=== PATIENT | male | born 1975 | race African-American/Black ===

== ENCOUNTER 2016-11-30 12:11 | Inpatient (IN) | payer BC ==
[2016-11-30 13:48] VITALS: BMI 22.4
--- NOTE | 2016-11-30 15:56 | HP ---
CIWA Score - CIWA Score Nausea/Vomitin Muscle Tremors: 3 Anxiety: 3 Agitation: 2 Paroxysmal Sweats: 1-Minimal Palms Moist Orientation: 0-Oriented Tacttile Disturbances: 2-Mild Itch/Numbness/Burn Auditory Disturbances: 2-Mild Harshness/Frighten Visual Disturbances: 2-Mild Sensitivity Headache: 2-Mild CIWA-Ar Total Score: 20 Admission ROS BHS - HPI Chief Complaint: I NEED HELP TO STOP DRINKING ALCOHOL AND COCAINE Allergies/Adverse Reactions: Allergies Allergy/AdvReac Type Severity Reaction Status Date / Time No Known Allergies Allergy Verified 11/30/16 15:37 History of Present Illness: THIS 41 YEARS OLD MALE WITH ALCOHOL AND COCAINE DEPENDENCE,WITHDRAWAL SYMPTOM, LAST DETOX 09/07 Exam Limitations: No Limitations - Ebola screening Have you traveled outside of the country in the last 21 days: No Have you been sick,other than usual withdrawal symptoms: No - Review of Systems Constitutional: Loss of Appetite, Night Sweats, Changes in sleep, Weakness, Unintentional Wgt. Loss EENT: reports: Nose Congestion Respiratory: reports: No Symptoms reported Cardiac: reports: No Symptoms Reported GI: reports: Nausea, Vomiting, Abdominal cramping : reports: No Symptoms Reported Musculoskeletal: reports: Back Pain, Muscle Pain Integumentary: reports: Dryness Endocrine: reports: No Symptoms Reported Hematology: reports: No Symptoms Reported Psychiatric: reports: other (SCHIZOPHRENIA) Patient History - Patient Medical History Hx Anemia: No (SICKLE CELL TRAIT) Hx Asthma: No Hx Chronic Obstructive Pulmonary Disease (COPD): No Hx Cancer: No Hx Cardiac Disorders: No Hx Congestive Heart Failure: No Hx Hypertension: No Hx Hypercholesterolemia: No Hx Pacemaker: No HX Cerebrovascular Accident: No Hx Seizures: No Hx Dementia: No Hx Diabetes: No Hx Gastrointestinal Disorders: No Hx Liver Disease: No Hx Genitourinary Disorders: No Hx Sexually Transmitted Disorders: No Hx Renal Disease (ESRD): No Hx Thyroid Disease: No Hx Human Immunodeficiency Virus (HIV): No (LAST 08/02/16 TO 08/06/16) Hx Hepatitis C: No Hx Depression: Yes Hx Suicide Attempt: No Hx Bipolar Disorder: No Hx Schizophrenia: No Other Medical History: SCHIZOPHRENIA,NO SUICIDAL,NO HOMICIDAL - Patient Surgical History Past Surgical History: No Hx Neurologic Surgery: No Hx Cataract Extraction: No Hx Cardiac Surgery: No Hx Lung Surgery: No Hx Breast Surgery: No Hx Breast Biopsy: No Hx Abdominal Surgery: No Hx Appendectomy: No Hx Cholecystectomy: No Hx Genitourinary Surgery: No Hx Section: No Hx Orthopedic Surgery: No Anesthesia Reaction: No - PPD History Previous Implant?: Yes Documented Results: Negative w/proof Implanted On Prior [facility] Admission?: Yes Date: 03/24/16 Results: 0 MM PPD to be Administered?: No - Smoking Cessation Smoking history: Current every day smoker Have you smoked in the past 12 months: Yes Aproximately how many cigarettes per day: 40 Cigars Per Day: 0 Hx Chewing Tobacco Use: No Initiated information on smoking cessation: Yes 'Breaking Loose' booklet given: 11/30/16 - Substance & Tx. History Hx Alcohol Use: Yes Hx Substance Use: Yes Substance Use Type: Alcohol, Cocaine Hx Substance Use Treatment: Yes (LAST DETOX 08/02/16 TO 09/06/16 [facility]) - Substances Abused Alcohol Route: Oral Frequency: Daily Amount used: 2 PINTS RYAN Age of first use: 13 Date of Last Use: 11/29/16 Crack Route: Smoking Frequency: Daily Amount used: $80 Age of first use: 38 Date of Last Use: 11/29/16 Family Disease History - Family Disease History Family Disease History: Heart Disease: Father (HTN,ALCOHOL), Other: Father Admission Physical Exam S - Vital Signs Vital Signs: Vital Signs - 24 hr 11/30/16 13:47 Temperature 98.2 F Pulse Rate 76 Respiratory 18 Rate Blood Pressure 131/78 - Physical General Appearance: Yes: Moderate Distress, Tremorous, Irritable, Sweating, Anxious HEENTM: Yes: Nasal Congestion Respiratory: Yes: Lungs Clear Neck: Yes: Within Normal Limits Breast: Yes: Within Normal Limits Cardiology: Yes: Within Normal Limits, Regular Rhythm, Regular Rate, S1, S2 Abdominal: Yes: Within Normal Limits, Normal Bowel Sounds, Non Tender, Flat, Soft Genitourinary: Yes: Within Normal Limits Back: Yes: Muscle Spasm Musculoskeletal: Yes: Back pain, Muscle Pain Extremities: Yes: Tremors 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, Fully Oriented, Alert, Motor Strength 5/5 Integumentary: Yes: Dry Lymphatic: Yes: Within Normal Limits - Diagnostic (1) Alcohol dependence with uncomplicated withdrawal Current Visit: No Status: Chronic (2) Cocaine dependence Current Visit: No Status: Chronic Qualifiers: Substance use status: uncomplicated Qualified Code(s): F14.20 - Cocaine dependence, uncomplicated (3) Nicotine dependence Current Visit: No Status: Chronic Qualifiers: Nicotine product type: cigarettes Substance use status: uncomplicated Qualified Code(s): F17.210 - Nicotine dependence, cigarettes, uncomplicated (4) Paranoid schizophrenia Current Visit: No Status: Chronic (5) Weight loss Current Visit: No Status: Suspected Cleared for Admission S - Detox or Rehab [facility] Level of Care: Medically Managed Detox Regimen/Protocol: Librium S Breath Alcohol Content Breath Alcohol Content: 0 Urine Drug Screen - Results Drug Screen Negative: No Urine Drug Screen Results: CHANDANA-Cocaine
[2016-11-30] MEDS ORDERED: chlordiazePOXIDE HCL 25 MG CAPSULE PO PRN (16:05)
[2016-11-30] MEDS ORDERED: MENTHOL/PHENOL 1 EACH UD MM PRN (16:05)
[2016-11-30] MEDS ORDERED: P-EPHED 60MG/TRIPROLIDI 2.5MG TABLET PO PRN (16:05)
[2016-11-30] MEDS ORDERED: guaiFENesin/D-METHORPHAN HB 10 ML UNIT-DOSE CUPS PO PRN (16:05)
[2016-11-30] MEDS ORDERED: ACETAMINOPHEN 325 MG TABLET (FP) PO PRN (16:05)
[2016-11-30] MEDS ORDERED: NICOTINE POLACRILEX 4 MG GUM BUC PRN (16:05)
[2016-11-30] MEDS ORDERED: hydrOXYzine PAMOATE 50 MG CAPSULE (FP) PO PRN (16:05)
[2016-11-30] MEDS ORDERED: MAG HYDROX/AL HYDROX/SIMETH 30 ML UNIT-DOSE CUP PO PRN (16:05)
[2016-11-30] MEDS ORDERED: MAGNESIUM HYDROX 2400MG/30ML ORAL SUSPENSION 30 ML CUP PO PRN (16:05)
[2016-11-30] MEDS ORDERED: LOPERAMIDE HCL 2 MG CAPSULE PO PRN (16:05)
[2016-11-30] MEDS ORDERED: MAGNESIUM CITRATE 300 ML BOTTLE PO PRN (16:05)
[2016-11-30] MEDS ORDERED: IBUPROFEN 400 MG TABLET (FP) PO PRN (16:05)
[2016-11-30] MEDS ORDERED: chlordiazePOXIDE HCL 25 MG CAPSULE PO ONE (17:45)
[2016-11-30] MEDS: chlordiazePOXIDE HCL 25 MG CAPSULE PO SCH ×2 (17:57→22:11)
[2016-11-30] MEDS: THIAMINE HCL 100 MG TABLET (FP) PO SCH (22:11)
[2016-12-01] MEDS: chlordiazePOXIDE HCL 25 MG CAPSULE PO SCH ×4 (05:42→22:05)
[2016-12-01 09:29] LABS: MCH 28.4 pg (25.7-33.7); MCHC 31.6 g/dl (32.0-35.9); MEAN CELL VOLUME 90.1 fl (80-96); MEAN PLT VOLUME 9.5 fl (7.5-11.1); PLATELET COUNT 187 K/MM3 (134-434); RDW 13.9 % (11.9-15.9); WHITE BLOOD COUNT 6.1 K/mm3 (4.0-10.0)
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
[2016-12-01 10:07] LABS: ALBUMIN 3.8 g/dl (3.4-5.0); ALK PHOS 80 U/L (45-117); ANION GAP 5 (8-16); BILIRUBIN,TOTAL 0.2 mg/dL (0.2-1.0); CALCIUM 9.4 mg/dL (8.5-10.1); CO2 30 mmol/L (21-32); CREATININE 1.2 mg/dL (0.7-1.3); GLUCOSE,RANDOM 102 mg/dL (74-106); SGOT/AST 25 U/L (15-37); SGPT/ALT 41 U/L (12-78); TOT PROT 7.3 g/dl (6.4-8.2)
[2016-12-01] MEDS: PRENATAL VITAMINS W/ FOLIC ACID TABLET (FP) PO SCH (10:10)
--- NOTE | 2016-12-01 10:19 | PN ---
[facility] CIWA - CIWA Score Nausea/Vomitin-No Nausea/No Vomiting Muscle Tremors: 4-Moderate,w/Arms Extend Anxiety: 4-Mod. Anxious/Guarded Agitation: 4-Moderately Restless Paroxysmal Sweats: 1-Minimal Palms Moist Orientation: 0-Oriented Tacttile Disturbances: 3-Moderate Itch/Numb/Burn Auditory Disturbances: 0-None Visual Disturbances: 0-None Headache: 0-None Present CIWA-Ar Total Score: 16 S Progress Note (SOAP) Subjective: ANXIETY, SWEATS,TREMORS, INTERMITTENT SLEEP. Objective: 12/01/16 10:18 Vital Signs Temperature 97.9 F 12/01/16 10:17 Pulse Rate 65 12/01/16 10:17 Respiratory Rate 18 12/01/16 10:17 Blood Pressure 131/85 12/01/16 10:17 O2 Sat by Pulse Oximetry (%) Laboratory Last Values WBC 6.1 K/mm3 (4.0-10.0) D 12/01/16 05:30 RBC 5.06 M/mm3 (4.00-5.60) 12/01/16 05:30 Hgb 14.4 GM/dL (11.7-16.9) 12/01/16 05:30 Hct 45.6 % (35.4-49) 12/01/16 05:30 MCV 90.1 fl (80-96) 12/01/16 05:30 MCHC 31.6 g/dl (32.0-35.9) L 12/01/16 05:30 RDW 13.9 % (11.9-15.9) 12/01/16 05:30 Plt Count 187 K/MM3 (134-434) 12/01/16 05:30 MPV 9.5 fl (7.5-11.1) 12/01/16 05:30 Sodium 142 mmol/L (136-145) 12/01/16 05:30 Potassium 4.5 mmol/L (3.5-5.1) 12/01/16 05:30 Chloride 107 mmol/L (98-107) 12/01/16 05:30 Carbon Dioxide 30 mmol/L (21-32) 12/01/16 05:30 Anion Gap 5 (8-16) L 12/01/16 05:30 BUN 15 mg/dL (7-18) 12/01/16 05:30 Creatinine 1.2 mg/dL (0.7-1.3) 12/01/16 05:30 Creat Clearance w eGFR > 60 (>60) 12/01/16 05:30 Random Glucose 102 mg/dL (74-106) 12/01/16 05:30 Calcium 9.4 mg/dL (8.5-10.1) 12/01/16 05:30 Total Bilirubin 0.2 mg/dL (0.2-1.0) D 12/01/16 05:30 AST 25 U/L (15-37) 12/01/16 05:30 ALT 41 U/L (12-78) 12/01/16 05:30 Alkaline Phosphatase 80 U/L (45-117) D 12/01/16 05:30 Total Protein 7.3 g/dl (6.4-8.2) 12/01/16 05:30 Albumin 3.8 g/dl (3.4-5.0) 12/01/16 05:30 Assessment: 12/01/16 10:19 WITHDRAWAL SX Plan: CONTINUE DETOX
--- NOTE | 2016-12-01 10:39 | EKG ---
Test Reason : Blood Pressure : / mmHG Vent. Rate : 068 BPM Atrial Rate : 068 BPM P-R Int : 122 ms QRS Dur : 108 ms QT Int : 380 ms P-R-T Axes : 064 047 003 degrees QTc Int : 404 ms POOR DATA QUALITY, INTERPRETATION MAY BE ADVERSELY AFFECTED NORMAL SINUS RHYTHM INCOMPLETE RIGHT BUNDLE BRANCH BLOCK BORDERLINE ECG NO PREVIOUS ECGS AVAILABLE Confirmed by MARÍA WALKER MD ([id number]) on 12/01/2016 10:38:47 AM Referred By: Confirmed By:MARÍA WALKER MD
[2016-12-01 15:32] LABS: URINE APPEARANCE CLEAR; URINE BILIRUBIN NEGATIVE (NEGATIVE); URINE BLOOD NEGATIVE (NEGATIVE); URINE COLOR LTYELLOW; URINE GLUCOSE (UA) NEGATIVE (NEGATIVE); URINE KETONE NEGATIVE (NEGATIVE); URINE LEUK ESTERASE NEGATIVE (NEGATIVE); URINE NITRITE NEGATIVE (NEGATIVE); URINE PROTEIN NEGATIVE (NEGATIVE); URINE UROBILINOGEN NEGATIVE E.U./dl (0.2-1.0)
[2016-12-01] MEDS: QUEtiapine FUMARATE 200 MG TABLET PO SCH (22:05)
[2016-12-01] MEDS: THIAMINE HCL 100 MG TABLET (FP) PO SCH (22:05)
[2016-12-01] MEDS: diphenhydrAMINE HCL 50 MG CAPSULE PO PRN (22:06)
[2016-12-02] MEDS: chlordiazePOXIDE HCL 25 MG CAPSULE PO SCH ×2 (06:08→10:06)
[2016-12-02] MEDS: PRENATAL VITAMINS W/ FOLIC ACID TABLET (FP) PO SCH (10:06)
[2016-12-02] MEDS: QUEtiapine FUMARATE 50 MG TABLET PO SCH (10:07)
--- NOTE | 2016-12-02 10:33 | PN ---
[facility] CIWA - CIWA Score Nausea/Vomitin-No Nausea/No Vomiting Muscle Tremors: 4-Moderate,w/Arms Extend Anxiety: 4-Mod. Anxious/Guarded Agitation: 4-Moderately Restless Paroxysmal Sweats: 1-Minimal Palms Moist Orientation: 0-Oriented Tacttile Disturbances: 3-Moderate Itch/Numb/Burn Auditory Disturbances: 0-None Visual Disturbances: 0-None Headache: 0-None Present CIWA-Ar Total Score: 16 BHS Progress Note (SOAP) Subjective: ANXIETY,TREMORS, SWEATS,FATIGUE. Objective: 12/02/16 10:30 Vital Signs Temperature 95.8 F L 12/02/16 06:28 Pulse Rate 65 12/02/16 06:28 Respiratory Rate 18 12/02/16 06:28 Blood Pressure 115/71 12/02/16 06:28 O2 Sat by Pulse Oximetry (%) Laboratory Last Values WBC 6.1 K/mm3 (4.0-10.0) D 12/01/16 05:30 RBC 5.06 M/mm3 (4.00-5.60) 12/01/16 05:30 Hgb 14.4 GM/dL (11.7-16.9) 12/01/16 05:30 Hct 45.6 % (35.4-49) 12/01/16 05:30 MCV 90.1 fl (80-96) 12/01/16 05:30 MCHC 31.6 g/dl (32.0-35.9) L 12/01/16 05:30 RDW 13.9 % (11.9-15.9) 12/01/16 05:30 Plt Count 187 K/MM3 (134-434) 12/01/16 05:30 MPV 9.5 fl (7.5-11.1) 12/01/16 05:30 Sodium 142 mmol/L (136-145) 12/01/16 05:30 Potassium 4.5 mmol/L (3.5-5.1) 12/01/16 05:30 Chloride 107 mmol/L (98-107) 12/01/16 05:30 Carbon Dioxide 30 mmol/L (21-32) 12/01/16 05:30 Anion Gap 5 (8-16) L 12/01/16 05:30 BUN 15 mg/dL (7-18) 12/01/16 05:30 Creatinine 1.2 mg/dL (0.7-1.3) 12/01/16 05:30 Creat Clearance w eGFR > 60 (>60) 12/01/16 05:30 Random Glucose 102 mg/dL (74-106) 12/01/16 05:30 Calcium 9.4 mg/dL (8.5-10.1) 12/01/16 05:30 Total Bilirubin 0.2 mg/dL (0.2-1.0) D 12/01/16 05:30 AST 25 U/L (15-37) 12/01/16 05:30 ALT 41 U/L (12-78) 12/01/16 05:30 Alkaline Phosphatase 80 U/L (45-117) D 12/01/16 05:30 Total Protein 7.3 g/dl (6.4-8.2) 12/01/16 05:30 Albumin 3.8 g/dl (3.4-5.0) 12/01/16 05:30 Urine Color Ltyellow 12/01/16 12:10 Urine Appearance Clear 12/01/16 12:10 Urine pH 5.0 (5.0-8.0) 12/01/16 12:10 Ur Specific [place] 1.019 (1.001-1.035) 12/01/16 12:10 Urine Protein Negative (NEGATIVE) 12/01/16 12:10 Urine Glucose (UA) Negative (NEGATIVE) 12/01/16 12:10 Urine Ketones Negative (NEGATIVE) 12/01/16 12:10 Urine Blood Negative (NEGATIVE) 12/01/16 12:10 Urine Nitrite Negative (NEGATIVE) 12/01/16 12:10 Urine Bilirubin Negative (NEGATIVE) 12/01/16 12:10 Urine Urobilinogen Negative E.U./dl (0.2-1.0) 12/01/16 12:10 Ur Leukocyte Esterase Negative (NEGATIVE) 12/01/16 12:10 RPR Titer Nonreactive (NONREACTIVE) 12/01/16 05:30 Assessment: 12/02/16 10:31 WITHDRAWAL SX Plan: CONTINUE DETOX
[2016-12-02] MEDS: chlordiazePOXIDE 5 MG CAPSULE PO SCH ×2 (17:40→22:14)
[2016-12-02] MEDS: diphenhydrAMINE HCL 50 MG CAPSULE PO PRN (22:13)
[2016-12-02] MEDS: THIAMINE HCL 100 MG TABLET (FP) PO SCH (22:13)
[2016-12-02] MEDS: QUEtiapine FUMARATE 200 MG TABLET PO SCH (22:14)
[2016-12-03] MEDS: chlordiazePOXIDE 5 MG CAPSULE PO SCH ×2 (06:05→10:05)
[2016-12-03] MEDS: PRENATAL VITAMINS W/ FOLIC ACID TABLET (FP) PO SCH (10:05)
[2016-12-03] MEDS: QUEtiapine FUMARATE 50 MG TABLET PO SCH (10:06)
--- NOTE | 2016-12-03 10:30 | PN ---
BHS Progress Note (SOAP) Subjective: sweating,interrupted sleep,restless Objective: 12/03/16 10:29 Vital Signs - 8 hr 12/03/16 12/03/16 12/03/16 03:43 07:06 09:49 Temperature 97.0 F L 96.0 F L Pulse Rate 69 69 Respiratory 18 18 18 Rate Blood Pressure 106/69 110/72 Laboratory Last Values WBC 6.1 K/mm3 (4.0-10.0) D 12/01/16 05:30 RBC 5.06 M/mm3 (4.00-5.60) 12/01/16 05:30 Hgb 14.4 GM/dL (11.7-16.9) 12/01/16 05:30 Hct 45.6 % (35.4-49) 12/01/16 05:30 MCV 90.1 fl (80-96) 12/01/16 05:30 MCHC 31.6 g/dl (32.0-35.9) L 12/01/16 05:30 RDW 13.9 % (11.9-15.9) 12/01/16 05:30 Plt Count 187 K/MM3 (134-434) 12/01/16 05:30 MPV 9.5 fl (7.5-11.1) 12/01/16 05:30 Sodium 142 mmol/L (136-145) 12/01/16 05:30 Potassium 4.5 mmol/L (3.5-5.1) 12/01/16 05:30 Chloride 107 mmol/L (98-107) 12/01/16 05:30 Carbon Dioxide 30 mmol/L (21-32) 12/01/16 05:30 Anion Gap 5 (8-16) L 12/01/16 05:30 BUN 15 mg/dL (7-18) 12/01/16 05:30 Creatinine 1.2 mg/dL (0.7-1.3) 12/01/16 05:30 Creat Clearance w eGFR > 60 (>60) 12/01/16 05:30 Random Glucose 102 mg/dL (74-106) 12/01/16 05:30 Calcium 9.4 mg/dL (8.5-10.1) 12/01/16 05:30 Total Bilirubin 0.2 mg/dL (0.2-1.0) D 12/01/16 05:30 AST 25 U/L (15-37) 12/01/16 05:30 ALT 41 U/L (12-78) 12/01/16 05:30 Alkaline Phosphatase 80 U/L (45-117) D 12/01/16 05:30 Total Protein 7.3 g/dl (6.4-8.2) 12/01/16 05:30 Albumin 3.8 g/dl (3.4-5.0) 12/01/16 05:30 Urine Color Ltyellow 12/01/16 12:10 Urine Appearance Clear 12/01/16 12:10 Urine pH 5.0 (5.0-8.0) 12/01/16 12:10 Ur Specific [place] 1.019 (1.001-1.035) 12/01/16 12:10 Urine Protein Negative (NEGATIVE) 12/01/16 12:10 Urine Glucose (UA) Negative (NEGATIVE) 12/01/16 12:10 Urine Ketones Negative (NEGATIVE) 12/01/16 12:10 Urine Blood Negative (NEGATIVE) 12/01/16 12:10 Urine Nitrite Negative (NEGATIVE) 12/01/16 12:10 Urine Bilirubin Negative (NEGATIVE) 12/01/16 12:10 Urine Urobilinogen Negative E.U./dl (0.2-1.0) 12/01/16 12:10 Ur Leukocyte Esterase Negative (NEGATIVE) 12/01/16 12:10 RPR Titer Nonreactive (NONREACTIVE) 12/01/16 05:30 labs noted Assessment: 12/03/16 10:29 withdrawal sx. Plan: continue detox
[2016-12-03] MEDS: chlordiazePOXIDE HCL 10 MG CAPSULE PO SCH ×2 (17:13→22:44)
[2016-12-03] MEDS: QUEtiapine FUMARATE 200 MG TABLET PO SCH (22:43)
[2016-12-03] MEDS: THIAMINE HCL 100 MG TABLET (FP) PO SCH (22:43)
[2016-12-03] MEDS: diphenhydrAMINE HCL 50 MG CAPSULE PO PRN (22:44)
[2016-12-04] MEDS: chlordiazePOXIDE HCL 10 MG CAPSULE PO SCH (05:50)
[2016-12-04] MEDS: QUEtiapine FUMARATE 50 MG TABLET PO SCH (09:03)
[2016-12-04] MEDS: PRENATAL VITAMINS W/ FOLIC ACID TABLET (FP) PO SCH (09:03)
[2016-12-04 09:30] VITALS: BP 123/67; PULSE 76; TEMP 96.7
--- NOTE | 2016-12-04 11:37 | DS ---
[facility] Detox Discharge Summary Admission Date: 11/30/16 Discharge Date: 12/04/16 - History Present History: Alcohol Dependence, Cocaine Dependence Pertinent Past History: Sickle cell trait anemia (stable) - Physical Exam Results Vital Signs: Vital Signs Temperature 96.7 F L 12/04/16 09:29 Pulse Rate 76 12/04/16 09:29 Respiratory Rate 18 12/04/16 09:29 Blood Pressure 123/67 12/04/16 09:29 O2 Sat by Pulse Oximetry (%) Pertinent Admission Physical Exam Findings: Withdrawal symptoms Laboratory Tests 12/01/16 12/01/16 12/01/16 05:30 05:30 05:30 WBC 6.1 D RBC 5.06 Hgb 14.4 Hct 45.6 MCV 90.1 MCHC 31.6 L RDW 13.9 Plt Count 187 MPV 9.5 Sodium 142 Potassium 4.5 Chloride 107 Carbon Dioxide 30 Anion Gap 5 L BUN 15 Creatinine 1.2 Creat Clearance w eGFR > 60 Random Glucose 102 Calcium 9.4 Total Bilirubin 0.2 D AST 25 ALT 41 Alkaline Phosphatase 80 D Total Protein 7.3 Albumin 3.8 Urine Color Urine Appearance Urine pH Ur Specific [place] Urine Protein Urine Glucose (UA) Urine Ketones Urine Blood Urine Nitrite Urine Bilirubin Urine Urobilinogen Ur Leukocyte Esterase RPR Titer Nonreactive 12/01/16 12:10 WBC RBC Hgb Hct MCV MCHC RDW Plt Count MPV Sodium Potassium Chloride Carbon Dioxide Anion Gap BUN Creatinine Creat Clearance w eGFR Random Glucose Calcium Total Bilirubin AST ALT Alkaline Phosphatase Total Protein Albumin Urine Color Ltyellow Urine Appearance Clear Urine pH 5.0 Ur Specific [place] 1.019 Urine Protein Negative Urine Glucose (UA) Negative Urine Ketones Negative Urine Blood Negative Urine Nitrite Negative Urine Bilirubin Negative Urine Urobilinogen Negative Ur Leukocyte Esterase Negative RPR Titer Labs noted - Treatment Hospital Course: Detox Protocol Followed, Detoxed Safely, Responded well, Discharged Condition Good - Medication Discharge Medications: Ambulatory Orders Quetiapine Fumarate [Seroquel -] 50 mg PO DAILY #30 tablet 12/01/16 Quetiapine Fumarate [Seroquel -] 200 mg PO HS #30 tablet 12/01/16 - Diagnosis (1) Alcohol dependence with uncomplicated withdrawal Status: Acute (2) Sickle-cell trait Status: Chronic (3) Nicotine dependence Status: Chronic Qualifiers: Nicotine product type: cigarettes Substance use status: uncomplicated Qualified Code(s): F17.210 - Nicotine dependence, cigarettes, uncomplicated (4) Paranoid schizophrenia Status: Chronic (5) Cocaine dependence Status: Chronic Qualifiers: Substance use status: uncomplicated Qualified Code(s): F14.20 - Cocaine dependence, uncomplicated - AMA Did Patient Leave Against Medical Advice: No
== END 2016-12-04 09:32 | disposition home or self-care (01) | DRG 774 ==
LOC: YASAS 12:11 → Y3N 17:27
PROVIDERS: ADMIT Internal Medicine; ATTEND Internal Medicine
PROC: HZ2ZZZZ Detoxification Services for Substance Abuse Treatment (ICD-10-PCS; principal; 2016-12-04)
DX: F10.230 Alcohol dependence with withdrawal, uncomplicated (principal); F14.20 Cocaine dependence, uncomplicated; F17.210 Nicotine dependence, cigarettes, uncomplicated; F20.0 Paranoid schizophrenia; D57.3 Sickle-cell trait
CPT/HCPCS: 36415; 80053; 81003; 85027; 86593; 93005; 93010

== ENCOUNTER 2018-01-09 14:12 | Inpatient (IN) | payer BC ==
[2018-01-09 16:56] VITALS: BMI 23.2
--- NOTE | 2018-01-09 20:16 | HP ---
CIWA Score - CIWA Score Nausea/Vomitin Muscle Tremors: 4-Moderate,w/Arms Extend Anxiety: 4-Mod. Anxious/Guarded Agitation: 4-Moderately Restless Paroxysmal Sweats: 3 Orientation: 1-Uncertain about Date Tacttile Disturbances: 2-Mild Itch/Numbness/Burn Auditory Disturbances: 0-None Visual Disturbances: 0-None Headache: 0-None Present CIWA-Ar Total Score: 21 Admission ROS BHS - HPI Chief Complaint: I AM HERE TO GET HELP FOR ALCOHOL AND COCAINE Allergies/Adverse Reactions: Allergies Allergy/AdvReac Type Severity Reaction Status Date / Time No Known Allergies Allergy Verified 01/09/18 17:21 History of Present Illness: 42 Y.O. MALE WITH ALCOHOLISM AND COCAINE DEPENDENCE HERE DETOX. CLIENT IS KNOWN TO THIS PROGRAM. LAST HERE 2016. DENIES AY SIGNIFICANT PERIOD OF CLEAN TIME. SELF REFERRED. DENIES LEGALS Exam Limitations: No Limitations - Ebola screening Have you traveled outside of the country in the last 21 days: No Have you had contact with anyone from an Ebola affected area: No Have you been sick,other than usual withdrawal symptoms: No Do you have a fever: No - Review of Systems Constitutional: Chills, Loss of Appetite, Night Sweats, Changes in sleep EENT: reports: Dental Problems (MISSING TEETH) Respiratory: reports: No Symptoms reported Cardiac: reports: No Symptoms Reported GI: reports: Diarrhea, Nausea, Poor Appetite, Poor Fluid Intake, Vomiting : reports: No Symptoms Reported Musculoskeletal: reports: No Symptoms Reported Integumentary: reports: No Symptoms Reported Neuro: reports: Other ("BLACK OUTS FROM DRINKING") Endocrine: reports: No Symptoms Reported Hematology: reports: Other (HX/O SICKLE CELL ANEMIA) Psychiatric: reports: Orientated x3, Anxious Other Systems: Reviewed and Negative Patient History - Patient Medical History Hx Anemia: No (SICKLE CELL TRAIT) Hx Asthma: No Hx Chronic Obstructive Pulmonary Disease (COPD): No Hx Cancer: No Hx Cardiac Disorders: No Hx Congestive Heart Failure: No Hx Hypertension: No Hx Hypercholesterolemia: No Hx Pacemaker: No HX Cerebrovascular Accident: No Hx Seizures: No Hx Dementia: No Hx Diabetes: No Hx Gastrointestinal Disorders: No Hx Liver Disease: No Hx Genitourinary Disorders: No Hx Sexually Transmitted Disorders: No Hx Renal Disease (ESRD): No Hx Thyroid Disease: No Hx Human Immunodeficiency Virus (HIV): No Hx Hepatitis C: No Hx Depression: Yes Hx Suicide Attempt: No Hx Bipolar Disorder: No Hx Schizophrenia: Yes (paranoid schizophrenia) Other Medical History: DENIES - Patient Surgical History Past Surgical History: No Hx Neurologic Surgery: No Hx Cataract Extraction: No Hx Cardiac Surgery: No Hx Lung Surgery: No Hx Breast Surgery: No Hx Breast Biopsy: No Hx Abdominal Surgery: No Hx Appendectomy: No Hx Cholecystectomy: No Hx Genitourinary Surgery: No Hx Section: No Hx Orthopedic Surgery: No Anesthesia Reaction: No - PPD History Previous Implant?: Yes Documented Results: Negative w/o proof Implanted On Prior [facility] Admission?: Yes Date: 03/24/16 Results: 0 MM PPD to be Administered?: Yes - Smoking Cessation Smoking history: Current every day smoker Have you smoked in the past 12 months: Yes Aproximately how many cigarettes per day: 40 Cigars Per Day: 0 Hx Chewing Tobacco Use: No Initiated information on smoking cessation: Yes 'Breaking Loose' booklet given: 01/09/18 - Substance & Tx. History Hx Alcohol Use: Yes Hx Substance Use: Yes Substance Use Type: Alcohol, Cocaine Hx Substance Use Treatment: Yes ([facility]) - Substances Abused Alcohol Route: Oral Frequency: Daily Amount used: fifth of lynne Age of first use: 15 Date of Last Use: 01/08/18 Cocaine Route: Inhalation Frequency: Daily Amount used: $40-50 Age of first use: 13 Date of Last Use: 01/08/18 Family Disease History - Family Disease History Family Disease History: Heart Disease: Father (HTN,ALCOHOL), Other: Father Admission Physical Exam [facility] - Vital Signs Vital Signs: Vital Signs - 24 hr 01/09/18 16:53 Temperature 96.5 F L Pulse Rate 83 Respiratory 20 Rate Blood Pressure 114/74 - Physical General Appearance: Yes: Appropriately Dressed, Mild Distress, Tremorous, Anxious HEENTM: Yes: EOMI, Normocephalic, ANA MARÍA, Pharynx Normal, Other (MISSING TEETH) Respiratory: Yes: Chest Non-Tender, Lungs Clear, Normal Breath Sounds, No Respiratory Distress, No Accessory Muscle Use Neck: Yes: No masses,lesions,Nodules, Supple, Trachea in good position Breast: Yes: Breast Exam Deferred Cardiology: Yes: Regular Rhythm, Regular Rate, S1, S2 Abdominal: Yes: Non Tender, Flat, Soft, Increased Bowel Sounds Genitourinary: Yes: Other (NO C/O) Back: Yes: Normal Inspection Musculoskeletal: Yes: full range of Motion, Gait Steady Extremities: Yes: Normal Capillary Refill, Normal Range of Motion, Non-Tender, Tremors Neurological: Yes: Alert, Motor Strength 5/5 Integumentary: Yes: Normal Color, Warm Lymphatic: Yes: Within Normal Limits - Diagnostic (1) Alcohol dependence with uncomplicated withdrawal Current Visit: No Status: Chronic (2) Cocaine dependence Current Visit: No Status: Chronic Qualifiers: Substance use status: uncomplicated Qualified Code(s): F14.20 - Cocaine dependence, uncomplicated (3) Nicotine dependence Current Visit: No Status: Chronic Qualifiers: Nicotine product type: cigarettes Substance use status: uncomplicated Qualified Code(s): F17.210 - Nicotine dependence, cigarettes, uncomplicated (4) Sickle-cell trait Current Visit: No Status: Chronic Cleared for Admission [facility] - Detox or Rehab [facility] Level of Care: Medically Managed Detox Regimen/Protocol: Librium Claeared for Rehab Admission: No S Breath Alcohol Content Breath Alcohol Content: 0 Urine Drug Screen - Results Drug Screen Negative: No Urine Drug Screen Results: THC-Marijuana, CHANDANA-Cocaine
[2018-01-09] MEDS ORDERED: chlordiazePOXIDE HCL 25 MG CAPSULE PO PRN (20:24)
[2018-01-09] MEDS ORDERED: MAGNESIUM HYDROX 2400MG/30ML ORAL SUSPENSION 30 ML CUP PO PRN (20:24)
[2018-01-09] MEDS ORDERED: guaiFENesin/D-METHORPHAN HB 10 ML UNIT-DOSE CUPS PO PRN (20:24)
[2018-01-09] MEDS ORDERED: IBUPROFEN 400 MG TABLET (FP) PO PRN (20:24)
[2018-01-09] MEDS ORDERED: LOPERAMIDE HCL 2 MG CAPSULE PO PRN (20:24)
[2018-01-09] MEDS ORDERED: ACETAMINOPHEN 325 MG TABLET (FP) PO PRN (20:24)
[2018-01-09] MEDS ORDERED: MAG HYDROX/AL HYDROX/SIMETH 30 ML UNIT-DOSE CUP PO PRN (20:24)
[2018-01-09] MEDS ORDERED: hydrOXYzine PAMOATE 50 MG CAPSULE (FP) PO PRN (20:24)
[2018-01-09] MEDS ORDERED: P-EPHED 60MG/TRIPROLIDI 2.5MG TABLET PO PRN (20:24)
[2018-01-09] MEDS ORDERED: MENTHOL/PHENOL 1 EACH UD MM PRN (20:24)
[2018-01-09] MEDS ORDERED: MAGNESIUM CITRATE 300 ML BOTTLE PO PRN (20:24)
[2018-01-09] MEDS: MELATONIN 5 MG TABLETS PO SCH (22:56)
[2018-01-09] MEDS: chlordiazePOXIDE HCL 25 MG CAPSULE PO SCH (22:56)
[2018-01-09] MEDS: THIAMINE HCL 100 MG TABLET (FP) PO SCH (22:56)
[2018-01-10 01:44] LABS: URINE APPEARANCE CLEAR; URINE BILIRUBIN NEGATIVE (NEGATIVE); URINE BLOOD NEGATIVE (NEGATIVE); URINE COLOR YELLOW; URINE GLUCOSE (UA) NEGATIVE (NEGATIVE); URINE KETONE NEGATIVE (NEGATIVE); URINE LEUK ESTERASE NEGATIVE (NEGATIVE); URINE NITRITE NEGATIVE (NEGATIVE); URINE PROTEIN NEGATIVE (NEGATIVE); URINE UROBILINOGEN 4.0 E.U/dl mg/dL (0.2-1.0)
[2018-01-10] MEDS: chlordiazePOXIDE HCL 25 MG CAPSULE PO SCH ×4 (05:06→22:07)
--- NOTE | 2018-01-10 09:59 | EKG ---
Test Reason : Blood Pressure : / mmHG Vent. Rate : 065 BPM Atrial Rate : 065 BPM P-R Int : 128 ms QRS Dur : 098 ms QT Int : 382 ms P-R-T Axes : 069 039 015 degrees QTc Int : 397 ms NORMAL SINUS RHYTHM NORMAL ECG WHEN COMPARED WITH ECG OF 30-NOV-2016 18:04, INCOMPLETE RIGHT BUNDLE BRANCH BLOCK IS NO LONGER PRESENT Confirmed by MARTHA HERNANDEZ MD ([id number]) on 01/10/2018 9:58:29 AM Referred By: Confirmed By:MARTHA HERNANDEZ MD
[2018-01-10] MEDS: NICOTINE POLACRILEX 4 MG GUM BC PRN (10:02)
[2018-01-10] MEDS: PRENATAL VITAMINS W/ FOLIC ACID TABLET (FP) PO SCH (10:02)
[2018-01-10] MEDS: NICOTINE 21 MG/24 HOURS TOPICAL PATCH TD SCH (10:04)
[2018-01-10 10:07] LABS: HEMATOCRIT 41.8 % (35.4-49); HEMOGLOBIN 13.5 GM/dL (11.7-16.9); MCH 29.2 pg (25.7-33.7); MCHC 32.4 g/dl (32.0-35.9); MEAN CELL VOLUME 90.2 fl (80-96); MEAN PLT VOLUME 8.9 fl (7.5-11.1); PLATELET COUNT 238 K/MM3 (134-434); RBC 4.63 M/mm3 (4.00-5.60); RDW 13.9 % (11.9-15.9); WHITE BLOOD COUNT 4.9 K/mm3 (4.0-10.0)
[2018-01-10 10:40] LABS: CHLORIDE 105 mmol/L (98-107); POTASSIUM 3.8 mmol/L (3.5-5.1); SODIUM 143 mmol/L (136-145)
[2018-01-10 10:55] LABS: ALBUMIN 3.4 g/dl (3.4-5.0); ALK PHOS 75 U/L (45-117); ANION GAP 10 (8-16); BILIRUBIN,TOTAL 0.3 mg/dL (0.2-1.0); BLOOD UREA NITROGEN 20 mg/dL (7-18); CALCIUM 8.9 mg/dL (8.5-10.1); CO2 28 mmol/L (21-32); CREATININE 1.1 mg/dL (0.7-1.3); GLUCOSE,RANDOM 90 mg/dL (74-106); SGOT/AST 47 U/L (15-37); SGPT/ALT 63 U/L (12-78); TOT PROT 6.6 g/dl (6.4-8.2)
--- NOTE | 2018-01-10 11:52 | CONSULT ---
[facility] Psychiatric Consult - Data Date of interview: 01/10/18 Admission source: [facility] Identifying data: Another admission to [facility] for this 42 y/o AA male seeking detox treatment,on ,for alcohol,marihuana and cocaine dependence.Patient is single (claims no dependents in this interview),homeless ( custodial),unemployed and supported on SSI benefits. Substance Abuse History: Discussed with patient.Mr Mcnamara endorses a 25+ year history of alcohol dependence (one fifth of lynne and 10 X 24 oz of beer daily ) + cocaine dependence (via snorting/spends 30-40 dollars a day). Smokes two packs of cigarettes daily. More details in current [facility] report : Smoking history : Current every day smoker. Have you smoked in the past 12 months: Yes. Aproximately how many cigarettes per day: 40. Cigars Per Day: 0. Hx Chewing Tobacco Use: No. Initiated information on smoking cessation: Yes. 'Breaking Loose' booklet given: 01/09/18. - Substance & Tx. History. Hx Alcohol Use: Yes. Hx Substance Use: Yes. Substance Use Type: Alcohol, Cocaine. Hx Substance Use Treatment: Yes ([facility]). - Substances Abused. Alcohol. Route: Oral. Frequency: Daily. Amount used: fifth of lynne. Age of first use: 15. Date of Last Use: 01/08/18. Cocaine. Route: Inhalation. Frequency: Daily. Amount used: $40-50. Age of first use: 13. Date of Last Use: 01/08/18 Medical History: Anemia,sickle cell trait.Noted report of past treatment for syphilis. Psychiatric History: Early onset of psychiatric illness (age 12-13) : had his first psychiatric hospitalization at [facility] for psychosis.History of multiple psychiatric retentions at various institutions ([facility] and other facilities in [facility]).Diagnosed with Schizophrenia Paranoid type.Mr Mcnamara is still maintained on seroquel 300 mg/hs + 100 mg/day.Chronically non-adherent to medications + OPD care.Last took seroquel " more than three weeks ago " as per self-report.Patient presents with a history of two suicide attempts (wrist-cutting in 2016 + found sitting on a roof in 2017 with intense ideation to jump off ). Physical/Sexual Abuse/Trauma History: No reported history of abuse. Additional Comment: Urine Drug Screen Results: THC-Marijuana, CHANDANA-Cocaine.Noted. Mental Status Exam - Mental Status Exam Alert and Oriented to: Time, Place, Person Cognitive Function: Good Patient Appearance: Well Groomed (thin habitus) Mood: Withdrawn, Anxious Affect: Appropriate, Normal Range Patient Behavior: Fatigued, Cooperative Speech Pattern: Clear, Appropriate Voice Loudness: Normal Thought Process: Goal Oriented Thought Disorder: Not Present Hallucinations: Denies Suicidal Ideation: Denies Homicidal Ideation: Denies Insight/Judgement: Poor Sleep: Poorly, Difficulty falling asleep Appetite: Poor, Weight loss Muscle strength/Tone: Normal Gait/Station: Normal Psychiatric Findings - Problem List ([place] 1, 2,3) (1) Alcohol dependence with uncomplicated withdrawal Current Visit: Yes Status: Acute (2) Cannabis dependence Current Visit: Yes Status: Acute (3) Cocaine dependence Current Visit: Yes Status: Acute Qualifiers: Substance use status: uncomplicated Qualified Code(s): F14.20 - Cocaine dependence, uncomplicated (4) Nicotine dependence Current Visit: Yes Status: Acute Qualifiers: Nicotine product type: cigarettes Substance use status: uncomplicated Qualified Code(s): F17.210 - Nicotine dependence, cigarettes, uncomplicated (5) Paranoid schizophrenia Current Visit: Yes Status: Chronic (6) Insomnia Current Visit: Yes Status: Acute - Initial Treatment Plan Initial Treatment Plan: Records revisited.Sleep hygiene.Psychoeducation provided in this session.Detoxification in progress.Medication : seroquel 100 mg po hs (reduced).Titration to follow if clinically indicated.Side effects/ benefits discussed with patient.Made aware of risk of metabolic syndrome, oversedation,abnormal involuntary movements and cardiovascular adverse events.Mr Mcnamara expressed his agreement with this plan of care.Observation.
--- NOTE | 2018-01-10 12:42 | PN ---
S CIWA - CIWA Score Nausea/Vomitin-No Nausea/No Vomiting Muscle Tremors: 3 Anxiety: 4-Mod. Anxious/Guarded Agitation: 2 Paroxysmal Sweats: 1-Minimal Palms Moist Orientation: 0-Oriented Tacttile Disturbances: 0-None Auditory Disturbances: 0-None Visual Disturbances: 0-None Headache: 0-None Present CIWA-Ar Total Score: 10 BHS Progress Note (SOAP) Subjective: SLIGHT ANXIETY,TREMORS. REPORTS MEDS EFFECTIVE IN RELAXING HIM LAST NIGHT. Objective: 01/10/18 12:42 Vital Signs Temperature 97.4 F L 01/10/18 09:30 Pulse Rate 53 L 01/10/18 09:30 Respiratory Rate 18 01/10/18 09:30 Blood Pressure 115/81 01/10/18 09:30 O2 Sat by Pulse Oximetry (%) Laboratory Last Values WBC 4.9 K/mm3 (4.0-10.0) 01/10/18 07:00 RBC 4.63 M/mm3 (4.00-5.60) 01/10/18 07:00 Hgb 13.5 GM/dL (11.7-16.9) 01/10/18 07:00 Hct 41.8 % (35.4-49) 01/10/18 07:00 MCV 90.2 fl (80-96) 01/10/18 07:00 MCH 29.2 pg (25.7-33.7) 01/10/18 07:00 MCHC 32.4 g/dl (32.0-35.9) 01/10/18 07:00 RDW 13.9 % (11.9-15.9) 01/10/18 07:00 Plt Count 238 K/MM3 (134-434) D 01/10/18 07:00 MPV 8.9 fl (7.5-11.1) 01/10/18 07:00 Sodium 143 mmol/L (136-145) 01/10/18 07:00 Potassium 3.8 mmol/L (3.5-5.1) 01/10/18 07:00 Chloride 105 mmol/L (98-107) 01/10/18 07:00 Carbon Dioxide 28 mmol/L (21-32) 01/10/18 07:00 Anion Gap 10 (8-16) 01/10/18 07:00 BUN 20 mg/dL (7-18) H D 01/10/18 07:00 Creatinine 1.1 mg/dL (0.7-1.3) 01/10/18 07:00 Creat Clearance w eGFR > 60 (>60) 01/10/18 07:00 Random Glucose 90 mg/dL (74-106) 01/10/18 07:00 Calcium 8.9 mg/dL (8.5-10.1) 01/10/18 07:00 Total Bilirubin 0.3 mg/dL (0.2-1.0) D 01/10/18 07:00 AST 47 U/L (15-37) H D 01/10/18 07:00 ALT 63 U/L (12-78) D 01/10/18 07:00 Alkaline Phosphatase 75 U/L (45-117) 01/10/18 07:00 Total Protein 6.6 g/dl (6.4-8.2) 01/10/18 07:00 Albumin 3.4 g/dl (3.4-5.0) 01/10/18 07:00 Urine Color Yellow 01/09/18 22:59 Urine Appearance Clear 01/09/18 22:59 Urine pH 6.0 (5.0-8.0) 01/09/18 22:59 Ur Specific [place] 1.016 (1.001-1.035) 01/09/18 22:59 Urine Protein Negative (NEGATIVE) 01/09/18 22:59 Urine Glucose (UA) Negative (NEGATIVE) 01/09/18 22:59 Urine Ketones Negative (NEGATIVE) 01/09/18 22:59 Urine Blood Negative (NEGATIVE) 01/09/18 22:59 Urine Nitrite Negative (NEGATIVE) 01/09/18 22:59 Urine Bilirubin Negative (NEGATIVE) 01/09/18 22:59 Urine Urobilinogen 4.0 e.u/dl mg/dL (0.2-1.0) 01/09/18 22:59 Ur Leukocyte Esterase Negative (NEGATIVE) 01/09/18 22:59 Assessment: 01/10/18 12:42 WITHDRAWAL SX Plan: CONTINUE DETOX
[2018-01-10] MEDS: MELATONIN 5 MG TABLETS PO SCH (22:07)
[2018-01-10] MEDS: THIAMINE HCL 100 MG TABLET (FP) PO SCH (22:07)
[2018-01-10] MEDS: QUEtiapine FUMARATE 100 MG TABLET (FP) PO SCH (22:07)
[2018-01-11] MEDS: chlordiazePOXIDE HCL 25 MG CAPSULE PO SCH ×3 (05:09→17:27)
[2018-01-11] MEDS: PRENATAL VITAMINS W/ FOLIC ACID TABLET (FP) PO SCH (10:11)
[2018-01-11] MEDS: NICOTINE 21 MG/24 HOURS TOPICAL PATCH TD SCH (10:11)
[2018-01-11] MEDS: NICOTINE POLACRILEX 4 MG GUM BC PRN (10:11)
--- NOTE | 2018-01-11 10:50 | PN ---
[facility] CIWA - CIWA Score Nausea/Vomitin-No Nausea/No Vomiting Muscle Tremors: 3 Anxiety: 4-Mod. Anxious/Guarded Agitation: 3 Paroxysmal Sweats: 1-Minimal Palms Moist Orientation: 0-Oriented Tacttile Disturbances: 0-None Auditory Disturbances: 0-None Visual Disturbances: 0-None Headache: 0-None Present CIWA-Ar Total Score: 11 S Progress Note (SOAP) Subjective: ANXIETY,SWEATS,FATIGUE. Objective: 01/11/18 10:49 Last Vital Signs Temp Pulse Resp BP Pulse Ox 96.5 F L 65 16 116/72 01/11/18 09:39 01/11/18 09:39 01/11/18 09:39 01/11/18 09:39 Laboratory Last Values WBC 4.9 K/mm3 (4.0-10.0) 01/10/18 07:00 RBC 4.63 M/mm3 (4.00-5.60) 01/10/18 07:00 Hgb 13.5 GM/dL (11.7-16.9) 01/10/18 07:00 Hct 41.8 % (35.4-49) 01/10/18 07:00 MCV 90.2 fl (80-96) 01/10/18 07:00 MCH 29.2 pg (25.7-33.7) 01/10/18 07:00 MCHC 32.4 g/dl (32.0-35.9) 01/10/18 07:00 RDW 13.9 % (11.9-15.9) 01/10/18 07:00 Plt Count 238 K/MM3 (134-434) D 01/10/18 07:00 MPV 8.9 fl (7.5-11.1) 01/10/18 07:00 Sodium 143 mmol/L (136-145) 01/10/18 07:00 Potassium 3.8 mmol/L (3.5-5.1) 01/10/18 07:00 Chloride 105 mmol/L (98-107) 01/10/18 07:00 Carbon Dioxide 28 mmol/L (21-32) 01/10/18 07:00 Anion Gap 10 (8-16) 01/10/18 07:00 BUN 20 mg/dL (7-18) H D 01/10/18 07:00 Creatinine 1.1 mg/dL (0.7-1.3) 01/10/18 07:00 Creat Clearance w eGFR > 60 (>60) 01/10/18 07:00 Random Glucose 90 mg/dL (74-106) 01/10/18 07:00 Calcium 8.9 mg/dL (8.5-10.1) 01/10/18 07:00 Total Bilirubin 0.3 mg/dL (0.2-1.0) D 01/10/18 07:00 AST 47 U/L (15-37) H D 01/10/18 07:00 ALT 63 U/L (12-78) D 01/10/18 07:00 Alkaline Phosphatase 75 U/L (45-117) 01/10/18 07:00 Total Protein 6.6 g/dl (6.4-8.2) 01/10/18 07:00 Albumin 3.4 g/dl (3.4-5.0) 01/10/18 07:00 Urine Color Yellow 01/09/18 22:59 Urine Appearance Clear 01/09/18 22:59 Urine pH 6.0 (5.0-8.0) 01/09/18 22:59 Ur Specific [place] 1.016 (1.001-1.035) 01/09/18 22:59 Urine Protein Negative (NEGATIVE) 01/09/18 22:59 Urine Glucose (UA) Negative (NEGATIVE) 01/09/18 22:59 Urine Ketones Negative (NEGATIVE) 01/09/18 22:59 Urine Blood Negative (NEGATIVE) 01/09/18 22:59 Urine Nitrite Negative (NEGATIVE) 01/09/18 22:59 Urine Bilirubin Negative (NEGATIVE) 01/09/18 22:59 Urine Urobilinogen 4.0 e.u/dl mg/dL (0.2-1.0) 01/09/18 22:59 Ur Leukocyte Esterase Negative (NEGATIVE) 01/09/18 22:59 RPR Titer Nonreactive (NONREACTIVE) 01/10/18 07:00 HIV 1&2 Antibody Screen Negative 01/10/18 07:00 HIV P24 Antigen Negative 01/10/18 07:00 Assessment: 01/11/18 10:50 WITHDRAWAL SX Plan: CONTINUE DETOX
[2018-01-11] MEDS: THIAMINE HCL 100 MG TABLET (FP) PO SCH (22:15)
[2018-01-11] MEDS: chlordiazePOXIDE 5 MG CAPSULE PO SCH (22:15)
[2018-01-11] MEDS: QUEtiapine FUMARATE 100 MG TABLET (FP) PO SCH (22:15)
[2018-01-11] MEDS: MELATONIN 5 MG TABLETS PO SCH (22:15)
[2018-01-12] MEDS: chlordiazePOXIDE 5 MG CAPSULE PO SCH ×3 (05:15→17:53)
[2018-01-12] MEDS: PRENATAL VITAMINS W/ FOLIC ACID TABLET (FP) PO SCH (10:24)
[2018-01-12] MEDS: NICOTINE 21 MG/24 HOURS TOPICAL PATCH TD SCH (10:24)
[2018-01-12] MEDS: NICOTINE POLACRILEX 4 MG GUM BC PRN (10:26)
--- NOTE | 2018-01-12 11:26 | PN ---
BHS Progress Note (SOAP) Subjective: SLIGHT ANXIETY,SWEATS,FATIGUE. Objective: 01/12/18 11:25 Vital Signs Temperature 96.2 F L 01/12/18 10:21 Pulse Rate 76 01/12/18 10:21 Respiratory Rate 18 01/12/18 10:21 Blood Pressure 111/72 01/12/18 10:21 O2 Sat by Pulse Oximetry (%) Laboratory Last Values WBC 4.9 K/mm3 (4.0-10.0) 01/10/18 07:00 RBC 4.63 M/mm3 (4.00-5.60) 01/10/18 07:00 Hgb 13.5 GM/dL (11.7-16.9) 01/10/18 07:00 Hct 41.8 % (35.4-49) 01/10/18 07:00 MCV 90.2 fl (80-96) 01/10/18 07:00 MCH 29.2 pg (25.7-33.7) 01/10/18 07:00 MCHC 32.4 g/dl (32.0-35.9) 01/10/18 07:00 RDW 13.9 % (11.9-15.9) 01/10/18 07:00 Plt Count 238 K/MM3 (134-434) D 01/10/18 07:00 MPV 8.9 fl (7.5-11.1) 01/10/18 07:00 Sodium 143 mmol/L (136-145) 01/10/18 07:00 Potassium 3.8 mmol/L (3.5-5.1) 01/10/18 07:00 Chloride 105 mmol/L (98-107) 01/10/18 07:00 Carbon Dioxide 28 mmol/L (21-32) 01/10/18 07:00 Anion Gap 10 (8-16) 01/10/18 07:00 BUN 20 mg/dL (7-18) H D 01/10/18 07:00 Creatinine 1.1 mg/dL (0.7-1.3) 01/10/18 07:00 Creat Clearance w eGFR > 60 (>60) 01/10/18 07:00 Random Glucose 90 mg/dL (74-106) 01/10/18 07:00 Calcium 8.9 mg/dL (8.5-10.1) 01/10/18 07:00 Total Bilirubin 0.3 mg/dL (0.2-1.0) D 01/10/18 07:00 AST 47 U/L (15-37) H D 01/10/18 07:00 ALT 63 U/L (12-78) D 01/10/18 07:00 Alkaline Phosphatase 75 U/L (45-117) 01/10/18 07:00 Total Protein 6.6 g/dl (6.4-8.2) 01/10/18 07:00 Albumin 3.4 g/dl (3.4-5.0) 01/10/18 07:00 Urine Color Yellow 01/09/18 22:59 Urine Appearance Clear 01/09/18 22:59 Urine pH 6.0 (5.0-8.0) 01/09/18 22:59 Ur Specific [place] 1.016 (1.001-1.035) 01/09/18 22:59 Urine Protein Negative (NEGATIVE) 01/09/18 22:59 Urine Glucose (UA) Negative (NEGATIVE) 01/09/18 22:59 Urine Ketones Negative (NEGATIVE) 01/09/18 22:59 Urine Blood Negative (NEGATIVE) 01/09/18 22:59 Urine Nitrite Negative (NEGATIVE) 01/09/18 22:59 Urine Bilirubin Negative (NEGATIVE) 01/09/18 22:59 Urine Urobilinogen 4.0 e.u/dl mg/dL (0.2-1.0) 01/09/18 22:59 Ur Leukocyte Esterase Negative (NEGATIVE) 01/09/18 22:59 RPR Titer Nonreactive (NONREACTIVE) 01/10/18 07:00 HIV 1&2 Antibody Screen Negative 01/10/18 07:00 HIV P24 Antigen Negative 01/10/18 07:00 Assessment: 01/12/18 11:25 WITHDRAWAL SX Plan: CONTINUE DETOX
[2018-01-12] MEDS ORDERED: TRIMETHOBENZAMIDE HCL 200MG/2ML INJ IM PRN ×2 (18:01→23:25)
[2018-01-12] MEDS: MELATONIN 5 MG TABLETS PO SCH (22:29)
[2018-01-12] MEDS: THIAMINE HCL 100 MG TABLET (FP) PO SCH (22:29)
[2018-01-12] MEDS: QUEtiapine FUMARATE 100 MG TABLET (FP) PO SCH (22:29)
[2018-01-12] MEDS: chlordiazePOXIDE HCL 10 MG CAPSULE PO SCH (22:30)
[2018-01-13] MEDS: chlordiazePOXIDE HCL 10 MG CAPSULE PO SCH ×2 (05:49→05:57)
[2018-01-13 09:38] VITALS: BP 107/67; PULSE 77; TEMP 97.7
--- NOTE | 2018-01-13 17:48 | PN ---
S Progress Note (SOAP) Subjective: Patient denies current detox symptoms and reports that he is feeling well overall. Objective: PATIENT A & O X 3, OBSERVED AMBULATING ON UNIT. NO ACUTE DISTRESS. 01/13/18 17:44 Vital Signs Temperature 97.7 F 01/13/18 09:15 Pulse Rate 77 01/13/18 09:15 Respiratory Rate 18 01/13/18 09:15 Blood Pressure 107/67 01/13/18 09:15 O2 Sat by Pulse Oximetry (%) Laboratory Tests 01/09/18 01/10/18 01/10/18 22:59 07:00 07:00 WBC 4.9 RBC 4.63 Hgb 13.5 Hct 41.8 MCV 90.2 MCH 29.2 MCHC 32.4 RDW 13.9 Plt Count 238 D MPV 8.9 Sodium Potassium Chloride Carbon Dioxide Anion Gap BUN Creatinine Creat Clearance w eGFR Random Glucose Calcium Total Bilirubin AST ALT Alkaline Phosphatase Total Protein Albumin Urine Color Yellow Urine Appearance Clear Urine pH 6.0 Ur Specific [place] 1.016 Urine Protein Negative Urine Glucose (UA) Negative Urine Ketones Negative Urine Blood Negative Urine Nitrite Negative Urine Bilirubin Negative Urine Urobilinogen 4.0 e.u/dl Ur Leukocyte Esterase Negative RPR Titer HIV 1&2 Antibody Screen Negative HIV P24 Antigen Negative 01/10/18 01/10/18 07:00 07:00 WBC RBC Hgb Hct MCV MCH MCHC RDW Plt Count MPV Sodium 143 Potassium 3.8 Chloride 105 Carbon Dioxide 28 Anion Gap 10 BUN 20 H D Creatinine 1.1 Creat Clearance w eGFR > 60 Random Glucose 90 Calcium 8.9 Total Bilirubin 0.3 D AST 47 H D ALT 63 D Alkaline Phosphatase 75 Total Protein 6.6 Albumin 3.4 Urine Color Urine Appearance Urine pH Ur Specific [place] Urine Protein Urine Glucose (UA) Urine Ketones Urine Blood Urine Nitrite Urine Bilirubin Urine Urobilinogen Ur Leukocyte Esterase RPR Titer Nonreactive HIV 1&2 Antibody Screen HIV P24 Antigen LABS NOTED. Assessment: 01/13/18 17:45 COMPLETION OF DETOX REGIMEN. 01/13/18 17:46 Plan: PATIENT SCHEDULED FOR DISCHARGE TODAY. PATIENT WILL RETURN TO [address] [place] [address]'S [facility] ([place], [place] AND THAT HIS COUNSELOR THERE WILL ASSIST HIM WITH AFTERCARE PLANS.
--- NOTE | 2018-01-13 17:52 | DS ---
[facility] Detox Discharge Summary Admission Date: 01/09/18 Discharge Date: 01/13/18 - History Present History: Alcohol Dependence, Cocaine Dependence Additional Comments: PATIENT WILL RETURN TO [address] [place] [address] [facility] [place] AND HIS COUNSELOR THERE WILL ASSIST HIM WITH AFTERCARE PLANNING. PATIENT WAS DISCHARGED FROM DETOX UNIT IN STABLE MEDICAL CONDITION. Pertinent Past History: History of Sickle Cell Trait, Paranoid Schizophrenia, Depression, Nicotine Dependence. - Physical Exam Results Vital Signs: Vital Signs Temperature 97.7 F 01/13/18 09:15 Pulse Rate 77 01/13/18 09:15 Respiratory Rate 18 01/13/18 09:15 Blood Pressure 107/67 01/13/18 09:15 O2 Sat by Pulse Oximetry (%) Pertinent Admission Physical Exam Findings: WITHDRAWAL SYMPTOMS. Laboratory Tests 01/09/18 01/10/18 01/10/18 22:59 07:00 07:00 WBC 4.9 RBC 4.63 Hgb 13.5 Hct 41.8 MCV 90.2 MCH 29.2 MCHC 32.4 RDW 13.9 Plt Count 238 D MPV 8.9 Sodium Potassium Chloride Carbon Dioxide Anion Gap BUN Creatinine Creat Clearance w eGFR Random Glucose Calcium Total Bilirubin AST ALT Alkaline Phosphatase Total Protein Albumin Urine Color Yellow Urine Appearance Clear Urine pH 6.0 Ur Specific [place] 1.016 Urine Protein Negative Urine Glucose (UA) Negative Urine Ketones Negative Urine Blood Negative Urine Nitrite Negative Urine Bilirubin Negative Urine Urobilinogen 4.0 e.u/dl Ur Leukocyte Esterase Negative RPR Titer HIV 1&2 Antibody Screen Negative HIV P24 Antigen Negative 01/10/18 01/10/18 07:00 07:00 WBC RBC Hgb Hct MCV MCH MCHC RDW Plt Count MPV Sodium 143 Potassium 3.8 Chloride 105 Carbon Dioxide 28 Anion Gap 10 BUN 20 H D Creatinine 1.1 Creat Clearance w eGFR > 60 Random Glucose 90 Calcium 8.9 Total Bilirubin 0.3 D AST 47 H D ALT 63 D Alkaline Phosphatase 75 Total Protein 6.6 Albumin 3.4 Urine Color Urine Appearance Urine pH Ur Specific [place] Urine Protein Urine Glucose (UA) Urine Ketones Urine Blood Urine Nitrite Urine Bilirubin Urine Urobilinogen Ur Leukocyte Esterase RPR Titer Nonreactive HIV 1&2 Antibody Screen HIV P24 Antigen LABS NOTED. - Treatment Hospital Course: Detox Protocol Followed, Detoxed Safely, Responded well, Discharged Condition Good Patient has Accepted a Rehab Referral to: COUNSELOR AT [address] [place], [place] [address]R WILL ASSIST WITH ASSIST W/ AFTERCARE. - Medication Discharge Medications: Ambulatory Orders Quetiapine Fumarate [Seroquel -] 100 mg PO DAILY 01/09/18 Quetiapine Fumarate [Seroquel -] 300 mg PO HS 01/09/18 - Diagnosis (1) Alcohol dependence with uncomplicated withdrawal Status: Acute (2) Cannabis dependence Status: Acute (3) Insomnia Status: Acute Qualifiers: Insomnia type: unspecified Qualified Code(s): G47.00 - Insomnia, unspecified (4) Nicotine dependence Status: Acute Qualifiers: Nicotine product type: cigarettes Substance use status: in withdrawal Qualified Code(s): F17.213 - Nicotine dependence, cigarettes, with withdrawal (5) Paranoid schizophrenia Status: Chronic (6) Sickle-cell trait Status: Chronic - AMA Did Patient Leave Against Medical Advice: No
== END 2018-01-13 09:25 | disposition home or self-care (01) | DRG 774 ==
LOC: YASAS 14:12 → Y3N 17:46
PROVIDERS: ADMIT Internal Medicine; ATTEND Internal Medicine
PROC: HZ2ZZZZ Detoxification Services for Substance Abuse Treatment (ICD-10-PCS; principal; 2018-01-09)
DX: F10.230 Alcohol dependence with withdrawal, uncomplicated (principal); F14.20 Cocaine dependence, uncomplicated; F12.20 Cannabis dependence, uncomplicated; F17.210 Nicotine dependence, cigarettes, uncomplicated; F32.9 Major depressive disorder, single episode, unspecified; F20.0 Paranoid schizophrenia; G47.00 Insomnia, unspecified; D57.3 Sickle-cell trait
CPT/HCPCS: 36415; 80053; 81003; 85027; 86593; 87389; 93005; 93010

== ENCOUNTER 2018-09-25 11:35 | Inpatient (IN) | payer BC ==
[2018-09-25 11:48] VITALS: BMI 24.5
--- NOTE | 2018-09-25 12:00 | HP ---
CIWA Score Nausea/Vomitin Muscle Tremors: 2 Anxiety: 2 Agitation: 2 Paroxysmal Sweats: 1-Minimal Palms Moist Orientation: 0-Oriented Tacttile Disturbances: 1-Very Mild Itch/Numbness Auditory Disturbances: 1-Very Mild Visual Disturbances: 0-None Headache: 2-Mild CIWA-Ar Total Score: 13 - Admission Criteria [facility] Guidelines: Admission for Medically Managed Detox: Requires at least one of the followin. CIWA greater than 12 2. Seizures within the past 24 hours 3. Delirium tremens within the past 24 hours 4. Hallucinations within the past 24 hours 5. Acute intervention needed for co occurring medical disorder 6. Acute intervention needed for co occurring psychiatric disorder 7. Severe withdrawal that cannot be handled at a lower level of care (continued vomiting, continued diarrhea, abnormal vital signs) requiring intravenous medication and/or fluids 8. Admission ROS [facility] - HPI Chief Complaint: i need help to stop drinking alcohol and cocaine Allergies/Adverse Reactions: Allergies Allergy/AdvReac Type Severity Reaction Status Date / Time No Known Allergies Allergy Verified 09/25/18 11:54 History of Present Illness: this 43 years old male with alcohol and coccaine dependence,seeking detox, withdrawal symptom,last detox [facility] 01/09/18 to 01/13/18 also marijuana dependence sickle cell trait nicotine dependence schizophrenia weight loss longest period of sobriety 2 months Exam Limitations: No Limitations - Ebola screening Have you traveled outside of the country in the last 21 days: No Have you had contact with anyone from an Ebola affected area: No Have you been sick,other than usual withdrawal symptoms: No - Review of Systems Constitutional: Loss of Appetite, Malaise, Night Sweats, Changes in sleep, Weakness, Unintentional Wgt. Loss EENT: reports: Nose Congestion Respiratory: reports: No Symptoms reported Cardiac: reports: No Symptoms Reported GI: reports: Diarrhea, Nausea, Vomiting, Abdominal cramping : reports: No Symptoms Reported Musculoskeletal: reports: Back Pain, Muscle Pain Integumentary: reports: Dryness Neuro: reports: Headache, Tremors Endocrine: reports: No Symptoms Reported Hematology: reports: No Symptoms Reported Psychiatric: reports: No Sypmtoms Reported, Judgement Intact, Mood/Affect Appropiate, Orientated x3, other (schizophrenia) Patient History - Patient Medical History Hx Anemia: No (SICKLE CELL TRAIT) Hx Asthma: No Hx Chronic Obstructive Pulmonary Disease (COPD): No Hx Cancer: No Hx Cardiac Disorders: No Hx Congestive Heart Failure: No Hx Hypertension: No Hx Hypercholesterolemia: No Hx Pacemaker: No HX Cerebrovascular Accident: No Hx Seizures: No Hx Dementia: No Hx Diabetes: No Hx Gastrointestinal Disorders: No Hx Liver Disease: No Hx Genitourinary Disorders: No Hx Sexually Transmitted Disorders: No Hx Renal Disease (ESRD): No Hx Thyroid Disease: No Hx Human Immunodeficiency Virus (HIV): No (08/09 negative) Hx Hepatitis C: No Hx Depression: Yes Hx Suicide Attempt: Yes (idea of jumping form the roof in 09/08) Hx Bipolar Disorder: No Hx Schizophrenia: Yes (paranoid schizophrenia) Other Medical History: no suicidal,no homicidal - Patient Surgical History Past Surgical History: No Hx Neurologic Surgery: No Hx Cataract Extraction: No Hx Cardiac Surgery: No Hx Lung Surgery: No Hx Breast Surgery: No Hx Breast Biopsy: No Hx Abdominal Surgery: No Hx Appendectomy: No Hx Cholecystectomy: No Hx Genitourinary Surgery: No Hx Section: No Hx Orthopedic Surgery: No Anesthesia Reaction: No - PPD History Previous Implant?: Yes Documented Results: Negative w/proof Date: 01/11/18 Results: 0 MM PPD to be Administered?: No - Smoking Cessation Smoking history: Current every day smoker Have you smoked in the past 12 months: Yes Aproximately how many cigarettes per day: 40 Cigars Per Day: 0 Hx Chewing Tobacco Use: No Initiated information on smoking cessation: Yes 'Breaking Loose' booklet given: 09/25/18 - Substance & Tx. History Hx Alcohol Use: Yes Hx Substance Use: Yes Substance Use Type: Alcohol, Cocaine, Marijuana Hx Substance Use Treatment: Yes ([facility] 01/09/18 to 01/13/18) - Substances Abused Alcohol Route: Oral Frequency: Daily Amount used: 10 cans beer/ fifth of lynne Age of first use: 13 Date of Last Use: 09/24/18 Cocaine Route: Smoking Frequency: Daily Amount used: $100 Age of first use: 15 Date of Last Use: 09/25/18 Marijuana/Hashish Route: Smoking Frequency: 1-3 times last 30 days Amount used: 1 blunt Age of first use: 11 Date of Last Use: 09/04/18 Family Disease History - Family Disease History Family Disease History: Heart Disease: Father (HTN,ALCOHOL), Other: Father Admission Physical Exam [facility] - Vital Signs Vital Signs: Vital Signs - 24 hr 09/25/18 11:44 Temperature 97.4 F L Pulse Rate 86 Respiratory 18 Rate Blood Pressure 126/75 - Physical General Appearance: Yes: Moderate Distress, Tremorous, Irritable, Sweating, Anxious HEENTM: Yes: Within Normal Limits, Normal ENT Inspection, ANA MARÍA Respiratory: Yes: Lungs Clear, Normal Breath Sounds, No Respiratory Distress Neck: Yes: Within Normal Limits, Supple, Trachea in good position Breast: Yes: Within Normal Limits Cardiology: Yes: Within Normal Limits, Regular Rhythm, Regular Rate, S1, S2 Abdominal: Yes: Within Normal Limits, Normal Bowel Sounds, Flat, Soft Genitourinary: Yes: Within Normal Limits Back: Yes: Muscle Spasm Musculoskeletal: Yes: Back pain, Muscle Pain Extremities: Yes: Within Normal Limits, Normal Range of Motion, Tremors Neurological: Yes: jack prizer II-XII NML intact, Fully Oriented, Alert, Motor Strength 5/5 Integumentary: Yes: Dry Lymphatic: Yes: Within Normal Limits - Diagnostic (1) Alcohol dependence with uncomplicated withdrawal Current Visit: Yes Status: Acute (2) Cannabis dependence Current Visit: Yes Status: Chronic (3) Cocaine dependence Current Visit: Yes Status: Chronic Qualifiers: Substance use status: uncomplicated Qualified Code(s): F14.20 - Cocaine dependence, uncomplicated (4) Nicotine dependence Current Visit: Yes Status: Chronic Qualifiers: Nicotine product type: cigarettes Substance use status: in withdrawal Qualified Code(s): F17.213 - Nicotine dependence, cigarettes, with withdrawal (5) Weight loss Current Visit: No Status: Acute (6) Paranoid schizophrenia Current Visit: Yes Status: Chronic (7) Sickle-cell trait Current Visit: Yes Status: Chronic Cleared for Admission [facility] - Detox or Rehab [facility] Level of Care: Medically Managed Detox Regimen/Protocol: Librium [facility] Breath Alcohol Content Breath Alcohol Content: 0 Urine Drug Screen - Results Drug Screen Negative: No Urine Drug Screen Results: THC-Marijuana, CHANDANA-Cocaine
[2018-09-25] MEDS ORDERED: MENTHOL/PHENOL 1 EACH UD MM PRN (12:09)
[2018-09-25] MEDS ORDERED: guaiFENesin/D-METHORPHAN HB 10 ML UNIT-DOSE CUPS PO PRN (12:09)
[2018-09-25] MEDS ORDERED: chlordiazePOXIDE HCL 25 MG CAPSULE PO PRN (12:09)
[2018-09-25] MEDS ORDERED: LOPERAMIDE HCL 2 MG CAPSULE PO PRN (12:09)
[2018-09-25] MEDS ORDERED: P-EPHED 60MG/TRIPROLIDI 2.5MG TABLET PO PRN (12:09)
[2018-09-25] MEDS ORDERED: hydrOXYzine PAMOATE 50 MG CAPSULE (FP) PO PRN (12:09)
[2018-09-25] MEDS ORDERED: NICOTINE POLACRILEX 2 MG GUM BUC PRN (12:09)
[2018-09-25] MEDS ORDERED: MAGNESIUM HYDROX 2400MG/30ML ORAL SUSPENSION 30 ML CUP PO PRN (12:09)
[2018-09-25] MEDS ORDERED: MAGNESIUM CITRATE 300 ML BOTTLE PO PRN (12:09)
[2018-09-25] MEDS ORDERED: IBUPROFEN 400 MG TABLET (FP) PO PRN (12:09)
[2018-09-25] MEDS ORDERED: MAG HYDROX/AL HYDROX/SIMETH 30 ML UNIT-DOSE CUP PO PRN (12:09)
[2018-09-25] MEDS ORDERED: ACETAMINOPHEN 325 MG TABLET (FP) PO PRN (12:09)
--- NOTE | 2018-09-25 17:06 | CONSULT ---
[facility] Psychiatric Consult - Data Date of interview: 09/25/18 Admission source: [facility] Identifying data: Readmission to [facility] for this 43 y/o AA male seeking detoxification treatment, on , for alcohol, marihuana and cocaine dependence. Patient is single, a father of two (claims no dependents in a previous interview), homeless (correction), unemployed and supported on SSI benefits. Substance Abuse History: Confirmed by the patient in this interview. Details in current [facility] report : Smoking history: Current every day smoker. Have you smoked in the past 12 months: Yes. Aproximately how many cigarettes per day: 40. Cigars Per Day: 0. Hx Chewing Tobacco Use: No. Initiated information on smoking cessation: Yes. 'Breaking Loose' booklet given: 09/25/18. - Substance & Tx. History. Hx Alcohol Use: Yes. Hx Substance Use: Yes. Substance Use Type : Alcohol, Cocaine, Marijuana. Hx Substance Use Treatment: Yes ([facility] 01/09/18 to 01/13/18) Medical History: Anemia, sickle cell trait. Noted report of past treatment for syphilis. Psychiatric History: Patient presents with a history of multiple psychiatric hospitalizations dating back to age 10 ([facility]). He is known to various institutions ([facility], [facility] and other facilities in [facility]). Mr Mcnamara is diagnosed with Schizophrenia Paranoid type. Prescribed seroquel 300 mg/hs + 100 mg/day. Chronically non-adherent to medications + OPD care (last took seroquel a week ago as per self account). Gets medications refills from providers at local [facility] settings. History of two suicide attempts (wrist-cutting in 2016 + found sitting on a roof in 2017 with intense ideation to jump off ). Physical/Sexual Abuse/Trauma History: Patient denies. Additional Comment: Urine Drug Screen Results: THC-Marijuana, CHANDANA-Cocaine. Noted. Mental Status Exam - Mental Status Exam Alert and Oriented to: Time, Place, Person Cognitive Function: Good Patient Appearance: Unkempt (thin habitus), Disheveled Mood: Nervous, Withdrawn Affect: Mood Congruent, Constricted Patient Behavior: Fatigued, Cooperative Speech Pattern: Clear, Appropriate Voice Loudness: Normal Thought Process: Goal Oriented Thought Disorder: Not Present Hallucinations: Denies Suicidal Ideation: Denies Insight/Judgement: Poor Sleep: Poorly, Difficulty falling asleep Appetite: Good Muscle strength/Tone: Normal Gait/Station: Other (not observed ; patient lay in bed for entire interview) Psychiatric Findings - Problem List ([place] 1, 2,3) (1) Alcohol dependence with uncomplicated withdrawal Current Visit: Yes Status: Acute (2) Cannabis dependence Current Visit: Yes Status: Acute (3) Cocaine dependence Current Visit: Yes Status: Acute Qualifiers: Substance use status: uncomplicated Qualified Code(s): F14.20 - Cocaine dependence, uncomplicated (4) Nicotine dependence Current Visit: Yes Status: Acute Qualifiers: Nicotine product type: cigarettes Substance use status: in withdrawal Qualified Code(s): F17.213 - Nicotine dependence, cigarettes, with withdrawal (5) Paranoid schizophrenia Current Visit: Yes Status: Chronic (6) Insomnia Current Visit: Yes Status: Acute Qualifiers: Insomnia type: unspecified Qualified Code(s): G47.00 - Insomnia, unspecified (7) Non-compliant patient Current Visit: Yes Status: Chronic - Initial Treatment Plan Initial Treatment Plan: Psychoeducation. Detoxification initiated. Sleep hygiene. AA meetings. Motivational sessions. Medications resumed as : seroquel 200 mg po hs (reduced dose, due to concern about sedation). Will titrate up to 400 mg/day if well tolerated. Side effects/benefits discussed with the patient. Made aware of the risk of metabolic syndrome. Mr Mcnamara has consented (verbally ) to this plan of care. Observation.
[2018-09-25] MEDS: chlordiazePOXIDE HCL 25 MG CAPSULE PO SCH ×2 (17:15→22:17)
[2018-09-25 17:20] LABS: URINE APPEARANCE CLEAR; URINE BILIRUBIN NEGATIVE (<2.0 mg/dL); URINE COLOR DKYELLOW; URINE GLUCOSE (UA) NEGATIVE (NEGATIVE); URINE KETONE NEGATIVE (NEGATIVE); URINE LEUK ESTERASE NEGATIVE (NEGATIVE); URINE NITRITE NEGATIVE (NEGATIVE); URINE PROTEIN NEGATIVE (NEGATIVE); URINE UROBILINOGEN 4.0 E.U/dl mg/dL (0.2-1.0)
[2018-09-25] MEDS ORDERED: MELATONIN 5 MG TABLETS PO PRN (22:00)
[2018-09-25] MEDS: THIAMINE HCL 100 MG TABLET (FP) PO SCH (22:16)
[2018-09-25] MEDS: QUEtiapine FUMARATE 200 MG TABLET PO SCH (22:17)
[2018-09-26] MEDS: chlordiazePOXIDE HCL 25 MG CAPSULE PO SCH ×4 (05:07→22:40)
[2018-09-26] MEDS: PRENATAL VITAMINS W/ FOLIC ACID TABLET (FP) PO SCH (10:35)
[2018-09-26 11:05] LABS: ALBUMIN 3.2 g/dl (3.4-5.0); ALK PHOS 81 U/L (45-117); ANION GAP 6 MMOL/L (8-16); BILIRUBIN,TOTAL 0.2 mg/dL (0.2-1); BLOOD UREA NITROGEN 18 mg/dL (7-18); CALCIUM 8.7 mg/dL (8.5-10.1); CHLORIDE 107 mmol/L (98-107); CO2 28 mmol/L (21-32); CREATININE 1.1 mg/dL (0.55-1.3); GLUCOSE,RANDOM 95 mg/dL (74-106); POTASSIUM 4.2 mmol/L (3.5-5.1); SGOT/AST 31 U/L (15-37); SGPT/ALT 51 U/L (13-61); SODIUM 141 mmol/L (136-145); TOT PROT 6.4 g/dl (6.4-8.2)
[2018-09-26 11:23] LABS: HEMATOCRIT 42.4 % (35.4-49); HEMOGLOBIN 14.4 GM/dL (11.7-16.9); MCH 29.9 pg (25.7-33.7); MEAN CELL VOLUME 87.9 fl (80-96); MEAN PLT VOLUME 9.5 fl (7.5-11.1); PLATELET COUNT 189 K/MM3 (134-434); RBC 4.82 M/mm3 (4.00-5.60); RDW 14.4 % (11.9-15.9); WHITE BLOOD COUNT 4.2 K/mm3 (4.0-10.0)
[2018-09-26] MEDS ORDERED: FLU VACCINE QUAD 60 MCG/0.5 ML (MDV 18-19) IM ONE (12:00)
--- NOTE | 2018-09-26 12:51 | PN ---
S CIWA - CIWA Score Nausea/Vomitin Muscle Tremors: 4-Moderate,w/Arms Extend Anxiety: 4-Mod. Anxious/Guarded Agitation: 2 Paroxysmal Sweats: 3 Orientation: 0-Oriented Tacttile Disturbances: 1-Very Mild Itch/Numbness Auditory Disturbances: 0-None Visual Disturbances: 0-None Headache: 1-Very Mild CIWA-Ar Total Score: 17 [facility] Progress Note (SOAP) Subjective: Yawning, interrupted sleep, sweating Objective: 09/26/18 12:50 Last Vital Signs Temp Pulse Resp BP Pulse Ox 96.6 F L 60 18 97/68 09/26/18 09:07 09/26/18 09:07 09/26/18 09:07 09/26/18 09:07 Laboratory Tests 09/25/18 09/25/18 09/26/18 07:00 16:45 07:00 WBC 4.2 RBC 4.82 Hgb 14.4 Hct 42.4 MCV 87.9 MCH 29.9 MCHC 34.0 RDW 14.4 Plt Count 189 D MPV 9.5 Sodium Potassium Chloride Carbon Dioxide Anion Gap BUN Creatinine Creat Clearance w eGFR Random Glucose Calcium Total Bilirubin AST ALT Alkaline Phosphatase Total Protein Albumin Urine Color Dkyellow Urine Appearance Clear Urine pH 5.0 Ur Specific [place] 1.023 Urine Protein Negative Urine Glucose (UA) Negative Urine Ketones Negative Urine Blood Negative Urine Nitrite Negative Urine Bilirubin Negative Urine Urobilinogen 4.0 e.u/dl Ur Leukocyte Esterase Negative HIV 1&2 Antibody Screen Negative HIV P24 Antigen Negative 09/26/18 07:00 WBC RBC Hgb Hct MCV MCH MCHC RDW Plt Count MPV Sodium 141 Potassium 4.2 Chloride 107 Carbon Dioxide 28 Anion Gap 6 L BUN 18 Creatinine 1.1 Creat Clearance w eGFR > 60 Random Glucose 95 Calcium 8.7 Total Bilirubin 0.2 AST 31 ALT 51 Alkaline Phosphatase 81 Total Protein 6.4 Albumin 3.2 L Urine Color Urine Appearance Urine pH Ur Specific [place] Urine Protein Urine Glucose (UA) Urine Ketones Urine Blood Urine Nitrite Urine Bilirubin Urine Urobilinogen Ur Leukocyte Esterase HIV 1&2 Antibody Screen HIV P24 Antigen Labs reviewed Assessment: 09/26/18 12:51 Withdrawal symptoms Plan: Continue detox Encouraged PO water intake
[2018-09-26] MEDS: QUEtiapine FUMARATE 200 MG TABLET PO SCH (22:40)
[2018-09-26] MEDS: THIAMINE HCL 100 MG TABLET (FP) PO SCH (22:40)
[2018-09-27] MEDS: chlordiazePOXIDE HCL 25 MG CAPSULE PO SCH ×2 (05:46→10:22)
[2018-09-27] MEDS: PRENATAL VITAMINS W/ FOLIC ACID TABLET (FP) PO SCH (10:21)
--- NOTE | 2018-09-27 12:11 | PN ---
[facility] CIWA - CIWA Score Nausea/Vomitin-Mild Nausea/No Vomiting Muscle Tremors: 3 Anxiety: 3 Agitation: 3 Paroxysmal Sweats: 3 Orientation: 0-Oriented Tacttile Disturbances: 0-None Auditory Disturbances: 0-None Visual Disturbances: 0-None Headache: 1-Very Mild CIWA-Ar Total Score: 14 [facility] Progress Note (SOAP) Subjective: Interrupted sleep, anxious Objective: 09/27/18 12:09 Last Vital Signs Temp Pulse Resp BP Pulse Ox 96 F L 67 20 106/79 09/27/18 09:09 09/27/18 09:09 09/27/18 09:09 09/27/18 09:09 Laboratory Tests 09/25/18 09/25/18 09/26/18 07:00 16:45 07:00 WBC 4.2 RBC 4.82 Hgb 14.4 Hct 42.4 MCV 87.9 MCH 29.9 MCHC 34.0 RDW 14.4 Plt Count 189 D MPV 9.5 Sodium Potassium Chloride Carbon Dioxide Anion Gap BUN Creatinine Creat Clearance w eGFR Random Glucose Calcium Total Bilirubin AST ALT Alkaline Phosphatase Total Protein Albumin Urine Color Dkyellow Urine Appearance Clear Urine pH 5.0 Ur Specific [place] 1.023 Urine Protein Negative Urine Glucose (UA) Negative Urine Ketones Negative Urine Blood Negative Urine Nitrite Negative Urine Bilirubin Negative Urine Urobilinogen 4.0 e.u/dl Ur Leukocyte Esterase Negative RPR Titer HIV 1&2 Antibody Screen Negative HIV P24 Antigen Negative 09/26/18 09/26/18 07:00 07:00 WBC RBC Hgb Hct MCV MCH MCHC RDW Plt Count MPV Sodium 141 Potassium 4.2 Chloride 107 Carbon Dioxide 28 Anion Gap 6 L BUN 18 Creatinine 1.1 Creat Clearance w eGFR > 60 Random Glucose 95 Calcium 8.7 Total Bilirubin 0.2 AST 31 ALT 51 Alkaline Phosphatase 81 Total Protein 6.4 Albumin 3.2 L Urine Color Urine Appearance Urine pH Ur Specific [place] Urine Protein Urine Glucose (UA) Urine Ketones Urine Blood Urine Nitrite Urine Bilirubin Urine Urobilinogen Ur Leukocyte Esterase RPR Titer Nonreactive HIV 1&2 Antibody Screen HIV P24 Antigen Labs reviewed Assessment: 09/27/18 12:09 Withdrawal symptoms Plan: Continue detox Encouraged PO water intake
[2018-09-27] MEDS: chlordiazePOXIDE 5 MG CAPSULE PO SCH ×2 (17:24→22:12)
--- NOTE | 2018-09-27 17:52 | PN ---
JUAN C Progress Note Note: Psychiatric nurse practitioner note: Delayed note: Psychiatric reconsultation ordered due to patient c/o not receiving his morning dose of seroquel. Chart reviewed and Dr. Salgado note read and appreciated. Parachute/Combatant Diver Officer attempted to speak to patient at approximately 13:45 but patient was asleep and difficult to awaken. Nursing staff informed. Psychiatric reconsultation deferred.
[2018-09-27] MEDS: THIAMINE HCL 100 MG TABLET (FP) PO SCH (22:12)
[2018-09-27] MEDS: QUEtiapine FUMARATE 200 MG TABLET PO SCH (22:12)
[2018-09-28] MEDS ORDERED: chlordiazePOXIDE HCL 10 MG CAPSULE PO SCH ×2 (05:00→17:00)
[2018-09-28 06:13] VITALS: BP 104/61; PULSE 59; TEMP 97
--- NOTE | 2018-09-28 12:28 | DS ---
[facility] Detox Discharge Summary Admission Date: 09/25/18 Discharge Date: 09/28/18 - History Present History: Alcohol Dependence, Cannabis Dependence, Cocaine Dependence Additional Comments: Patient completed detox successfully. Patient is A, A, Ox3, in nad, vss, ambulatory. Patient accepted referral to [facility] inpatient rehab today. Pertinent Past History: Alcohol dependence Cannabis dependence Cocaine dependence Nicotine dependence Sickle cell trait anemia Schizophrenia - Physical Exam Results Vital Signs: Vital Signs Temperature 97 F L 09/28/18 06:12 Pulse Rate 59 L 09/28/18 06:12 Respiratory Rate 18 09/28/18 06:30 Blood Pressure 104/61 09/28/18 06:12 O2 Sat by Pulse Oximetry (%) Pertinent Admission Physical Exam Findings: Withdrawal symptoms Laboratory Tests 09/25/18 09/25/18 09/26/18 07:00 16:45 07:00 WBC 4.2 RBC 4.82 Hgb 14.4 Hct 42.4 MCV 87.9 MCH 29.9 MCHC 34.0 RDW 14.4 Plt Count 189 D MPV 9.5 Sodium Potassium Chloride Carbon Dioxide Anion Gap BUN Creatinine Creat Clearance w eGFR Random Glucose Calcium Total Bilirubin AST ALT Alkaline Phosphatase Total Protein Albumin Urine Color Dkyellow Urine Appearance Clear Urine pH 5.0 Ur Specific [place] 1.023 Urine Protein Negative Urine Glucose (UA) Negative Urine Ketones Negative Urine Blood Negative Urine Nitrite Negative Urine Bilirubin Negative Urine Urobilinogen 4.0 e.u/dl Ur Leukocyte Esterase Negative RPR Titer HIV 1&2 Antibody Screen Negative HIV P24 Antigen Negative 09/26/18 09/26/18 07:00 07:00 WBC RBC Hgb Hct MCV MCH MCHC RDW Plt Count MPV Sodium 141 Potassium 4.2 Chloride 107 Carbon Dioxide 28 Anion Gap 6 L BUN 18 Creatinine 1.1 Creat Clearance w eGFR > 60 Random Glucose 95 Calcium 8.7 Total Bilirubin 0.2 AST 31 ALT 51 Alkaline Phosphatase 81 Total Protein 6.4 Albumin 3.2 L Urine Color Urine Appearance Urine pH Ur Specific [place] Urine Protein Urine Glucose (UA) Urine Ketones Urine Blood Urine Nitrite Urine Bilirubin Urine Urobilinogen Ur Leukocyte Esterase RPR Titer Nonreactive HIV 1&2 Antibody Screen HIV P24 Antigen Labs reviewed - Treatment Hospital Course: Detox Protocol Followed, Detoxed Safely, Responded well, Discharged Condition Good, Rehab Referral Accepted Patient has Accepted a Rehab Referral to: [facility] - Medication Discharge Medications: Ambulatory Orders Quetiapine Fumarate [Seroquel -] 100 mg PO DAILY 01/09/18 Quetiapine Fumarate [Seroquel -] 300 mg PO HS 01/09/18 - Diagnosis (1) Alcohol dependence with uncomplicated withdrawal Status: Acute (2) Cannabis dependence Status: Chronic (3) Cocaine dependence Status: Chronic Qualifiers: Substance use status: uncomplicated Qualified Code(s): F14.20 - Cocaine dependence, uncomplicated (4) Nicotine dependence Status: Chronic Qualifiers: Nicotine product type: cigarettes Substance use status: in withdrawal Qualified Code(s): F17.213 - Nicotine dependence, cigarettes, with withdrawal (5) Schizophrenia Status: Chronic (6) Sickle-cell trait Status: Chronic - AMA Did Patient Leave Against Medical Advice: No (Patient accepted referral to [facility])
== END 2018-09-28 10:01 | disposition home or self-care (01) | DRG 774 ==
LOC: YASAS 11:35 → Y3N 12:06
PROC: HZ2ZZZZ Detoxification Services for Substance Abuse Treatment (ICD-10-PCS; principal; 2018-09-25)
DX: F10.230 Alcohol dependence with withdrawal, uncomplicated (principal); F14.20 Cocaine dependence, uncomplicated; F12.20 Cannabis dependence, uncomplicated; F17.213 Nicotine dependence, cigarettes, with withdrawal; F32.9 Major depressive disorder, single episode, unspecified; F20.0 Paranoid schizophrenia; G47.00 Insomnia, unspecified; D57.3 Sickle-cell trait; D64.9 Anemia, unspecified; R63.4 Abnormal weight loss; Z68.24 Body mass index [BMI] 24.0-24.9, adult; Z86.19 Personal history of other infectious and parasitic diseases; Z91.5 Personal history of self-harm; Z91.19 Patient's noncompliance with other medical treatment and regimen
CPT/HCPCS: 36415; 80053; 81003; 85027; 86593; 87389

== ENCOUNTER 2019-06-14 13:53 | Inpatient (IN) | payer BC ==
[2019-06-14 15:46] VITALS: BMI 22.8
--- NOTE | 2019-06-14 17:18 | HP ---
CIWA Score Nausea/Vomitin-No Nausea/No Vomiting Muscle Tremors: 1-None Visible, but [place] Anxiety: 4-Mod. Anxious/Guarded Agitation: 4-Moderately Restless Paroxysmal Sweats: 3 Orientation: 1-Uncertain about Date Tacttile Disturbances: 0-None Auditory Disturbances: 0-None Visual Disturbances: 0-None Headache: 0-None Present CIWA-Ar Total Score: 13 - Admission Criteria [facility]AS[facility] Guidelines: Admission for Medically Managed Detox: Requires at least one of the followin. CIWA greater than 12 2. Seizures within the past 24 hours 3. Delirium tremens within the past 24 hours 4. Hallucinations within the past 24 hours 5. Acute intervention needed for co occurring medical disorder 6. Acute intervention needed for co occurring psychiatric disorder 7. Severe withdrawal that cannot be handled at a lower level of care (continued vomiting, continued diarrhea, abnormal vital signs) requiring intravenous medication and/or fluids 8. Patient presents the following: CIWA greater than 12, Acute intervention needed for co-occurring med or psych disorder Admission Criteria Met: Admission criteria met Admission ROS [facility] Chief Complaint: C/O WITHDRAWAL SX'S. SEEKING DETOX Allergies/Adverse Reactions: Allergies Allergy/AdvReac Type Severity Reaction Status Date / Time No Known Allergies Allergy Verified 06/14/19 15:40 History of Present Illness: 44 Y.O. MALE WITH WITH ALCOHOISM HERE FOR DETOX. HE IS SELF REFERRED HE IS KNOWN TO THIS PROGRAM. PRESENTS TO WITH C/O WITHDRAWAL SX'S FROM ALCOHOL. HE REPORTS A DAILY INTAKE. LAST USE EARLY THIS MORNING. 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 CLIENT REPORTS HE WAS CLEAN FOR ABOUT 2 MONTHS AFTER LAST ADMISSION PRIOR TO RELAPSING. + BLACKOUTS BUT DENIES SEIZURES. DOMICILED LIVES WITH GF, UNEMPLOYED - SSI, DENIES LEGALS Exam Limitations: No Limitations - Ebola screening Have you traveled outside of the country in the last 21 days: No (N) Have you had contact with anyone from an Ebola affected area: No Do you have a fever: No - Review of Systems Constitutional: Loss of Appetite, Night Sweats EENT: reports: Ear Pain (LEFT X4 DAYS), Dental Problems (MISSING TEETH) Respiratory: reports: Productive cough (CLEAR X2 WEEKS) Cardiac: reports: No Symptoms Reported GI: reports: Poor Appetite, Poor Fluid Intake : reports: No Symptoms Reported Musculoskeletal: reports: No Symptoms Reported Integumentary: reports: No Symptoms Reported Neuro: reports: Tremors Endocrine: reports: No Symptoms Reported Hematology: reports: No Symptoms Reported Psychiatric: reports: Anxious, Depressed (DENIES SI) Other Systems: Reviewed and Negative Patient History - Patient Medical History Hx Anemia: No (SICKLE CELL TRAIT) Hx Asthma: No Hx Chronic Obstructive Pulmonary Disease (COPD): No Hx Cancer: No Hx Cardiac Disorders: No Hx Congestive Heart Failure: No Hx Hypertension: No Hx Hypercholesterolemia: No Hx Pacemaker: No HX Cerebrovascular Accident: No Hx Seizures: No Hx Dementia: No Hx Diabetes: No Hx Gastrointestinal Disorders: No Hx Liver Disease: No Hx Genitourinary Disorders: No Hx Sexually Transmitted Disorders: No Hx Renal Disease (ESRD): No Hx Thyroid Disease: No Hx Human Immunodeficiency Virus (HIV): No Hx Hepatitis C: No Hx Depression: Yes Hx Suicide Attempt: Yes (idea of jumping form the roof in 09/08) Hx Bipolar Disorder: No Hx Schizophrenia: Yes (paranoid schizophrenia) Other Medical History: DENIES - Patient Surgical History Past Surgical History: No Hx Neurologic Surgery: No Hx Cataract Extraction: No Hx Cardiac Surgery: No Hx Lung Surgery: No Hx Breast Surgery: No Hx Breast Biopsy: No Hx Abdominal Surgery: No Hx Appendectomy: No Hx Cholecystectomy: No Hx Genitourinary Surgery: No Hx Section: No Hx Orthopedic Surgery: No Anesthesia Reaction: No - PPD History Previous Implant?: Yes Documented Results: Negative w/proof Implanted On Prior R Admission?: Yes Date: 01/11/18 Results: 0 MM PPD to be Administered?: No - Smoking Cessation Smoking history: Current every day smoker Have you smoked in the past 12 months: Yes Aproximately how many cigarettes per day: 40 Cigars Per Day: 0 Hx Chewing Tobacco Use: No Initiated information on smoking cessation: Yes 'Breaking Loose' booklet given: 06/14/19 - Substance & Tx. History Hx Alcohol Use: Yes Hx Substance Use: Yes Substance Use Type: Alcohol, Cocaine Hx Substance Use Treatment: Yes ([facility]) - Substances abused Alcohol Substance route: Oral Frequency: Daily Amount used: 18 beers & 1 pint jabari Age of first use: 15 Date of last use: 06/13/19 Cocaine Substance route: Inhalation Frequency: Daily Amount used: $100 Age of first use: 11 Date of last use: 06/13/19 Family Disease History - Family Disease History Family Disease History: Heart Disease: Father (HTN,ALCOHOL), Other: Father Admission Physical Exam [facility] - Vital Signs Vital Signs: Vital Signs - 24 hr 06/14/19 15:40 Temperature 98.3 F Pulse Rate 71 Respiratory 16 Rate Blood Pressure 121/83 - Physical General Appearance: Yes: Tremorous, Anxious HEENTM: Yes: EOMI, Normocephalic, Normal Voice, ANA MARÍA, Pharynx Normal, Other ( MISSING TEETH AND POOR DENTITION) Respiratory: Yes: Chest Non-Tender, Lungs Clear, Normal Breath Sounds, No Respiratory Distress, No Accessory Muscle Use, Other (WET COUGH) Neck: Yes: No masses,lesions,Nodules, Supple, Trachea in good position Breast: Yes: Breast Exam Deferred Cardiology: Yes: Regular Rhythm, Regular Rate, S1, S2 Abdominal: Yes: Normal Bowel Sounds, Flat, Soft, Tenderness (LLQ) Genitourinary: Yes: Within Normal Limits Back: Yes: Normal Inspection Musculoskeletal: Yes: full range of Motion, Gait Steady Extremities: Yes: Normal Capillary Refill, Normal Range of Motion, Non-Tender, Tremors Neurological: Yes: Fully Oriented, Alert, Motor Strength 5/5 Integumentary: Yes: Dry, Cold, Other (PILORECTION) Lymphatic: Yes: Within Normal Limits - Diagnostic (1) URI (upper respiratory infection) Current Visit: Yes Status: Acute Qualifiers: URI type: unspecified viral URI Qualified Code(s): J06.9 - Acute upper respiratory infection, unspecified (2) Alcohol dependence with uncomplicated withdrawal Current Visit: Yes Status: Acute (3) Cocaine dependence Current Visit: Yes Status: Acute Qualifiers: Substance use status: uncomplicated Qualified Code(s): F14.20 - Cocaine dependence, uncomplicated (4) Depression Current Visit: Yes Status: Chronic Qualifiers: Major depression episode severity: unspecified (5) Nicotine dependence Current Visit: Yes Status: Chronic Qualifiers: Nicotine product type: cigarettes Substance use status: in withdrawal Qualified Code(s): F17.213 - Nicotine dependence, cigarettes, with withdrawal (6) Schizophrenia Current Visit: Yes Status: Chronic Cleared for Admission [facility] - Detox or Rehab [facility] Level of Care: Medically Managed Detox Regimen/Protocol: Librium Claeared for Rehab Admission: No Breathalyzer - Breathalyzer Breathalyzer: 0 Vital Signs - Vital Signs Vital signs refused: No Temperature: 98.3 F Temperature source: Oral Pulse Rate: 71 Respiratory Rate: 16 Blood Pressure: 121/83 BP Location: Right Arm Blood Pressure position: Sitting - Height Height: 5 ft 6 in - Weight Weight: 64.41 kg Weight measurement method: Standing scale - BMI Body Mass Index (BMI): 22.8 - Bowel Function Bowel Movement: No Urine Drug Screen - Control Is test valid?: Yes - Results Drug screen NEGATIVE: No Urine drug screen results: THC-Marijuana, CHANDANA-Cocaine Inpatient Rehab Admission - Rehab Decision to Admit Inpatient rehab admission?: No
[2019-06-14] MEDS ORDERED: MAGNESIUM CITRATE 300 ML BOTTLE PO PRN (17:33)
[2019-06-14] MEDS ORDERED: MAGNESIUM HYDROX 2400MG/30ML ORAL SUSPENSION 30 ML CUP PO PRN (17:33)
[2019-06-14] MEDS ORDERED: P-EPHED 60MG/TRIPROLIDI 2.5MG TABLET PO PRN (17:33)
[2019-06-14] MEDS ORDERED: ONDANSETRON *ODT* 4 MG TABLET SL PRN (17:33)
[2019-06-14] MEDS ORDERED: MENTHOL/PHENOL 1 EACH UD MM PRN (17:33)
[2019-06-14] MEDS ORDERED: BISMUTH SUBSALICYLATE 524 MG/30 ML UD PO PRN (17:33)
[2019-06-14] MEDS ORDERED: METHOCARBAMOL 500 MG TABLET PO PRN (17:33)
[2019-06-14] MEDS ORDERED: hydrOXYzine PAMOATE 25 MG CAPSULE (FP) PO PRN (17:33)
[2019-06-14] MEDS ORDERED: IBUPROFEN 400 MG TABLET (FP) PO PRN (17:33)
[2019-06-14] MEDS ORDERED: DICYCLOMINE HCL 10 MG CAPSULE PO PRN (17:33)
[2019-06-14] MEDS ORDERED: MAG HYDROX/AL HYDROX/SIMETH 30 ML UNIT-DOSE CUP PO PRN (17:33)
[2019-06-14] MEDS ORDERED: ACETAMINOPHEN 325 MG TABLET (FP) PO PRN ×2 (17:33)
[2019-06-14] MEDS ORDERED: guaiFENesin 200 MG/10 ML 10 ML UNIT-DOSE CUPS PO PRN (17:33)
[2019-06-14] MEDS ORDERED: chlordiazePOXIDE HCL 25 MG CAPSULE PO PRN (17:33)
[2019-06-14] MEDS: chlordiazePOXIDE HCL 25 MG CAPSULE PO SCH (22:26)
[2019-06-14] MEDS: MELATONIN 5 MG TABLETS PO PRN (22:26)
[2019-06-14] MEDS: THIAMINE HCL 100 MG TABLET (FP) PO SCH (22:26)
[2019-06-15] MEDS: chlordiazePOXIDE HCL 25 MG CAPSULE PO SCH ×4 (05:16→22:10)
[2019-06-15] MEDS: PRENATAL VITAMINS W/ FOLIC ACID TABLET (FP) PO SCH (10:29)
[2019-06-15] MEDS: NICOTINE 21 MG/24 HOURS TOPICAL PATCH TD SCH (10:29)
[2019-06-15] MEDS: NICOTINE POLACRILEX 4 MG GUM BUC PRN (10:29)
[2019-06-15 10:53] LABS: HEMATOCRIT 40.7 % (35.4-49); HEMOGLOBIN 13.4 GM/dL (11.7-16.9); MEAN CELL VOLUME 90.7 fl (80-96); MEAN PLT VOLUME 8.9 fl (7.5-11.1); RBC 4.48 M/mm3 (4.00-5.60); RDW 13.5 % (11.9-15.9); WHITE BLOOD COUNT 4.7 K/mm3 (4.0-10.0)
[2019-06-15 11:03] LABS: BILIRUBIN,TOTAL 0.2 mg/dL (0.2-1); BLOOD UREA NITROGEN 22.6 mg/dL (7-18); CALCIUM 8.7 mg/dL (8.5-10.1); PLATELET COUNT 204 K/MM3 (134-434); POTASSIUM 4.5 mmol/L (3.5-5.1); TOT PROT 6.3 g/dl (6.4-8.2)
--- NOTE | 2019-06-15 11:34 | PN ---
S CIWA - CIWA Score Nausea/Vomitin-No Nausea/No Vomiting Muscle Tremors: None Anxiety: 3 Agitation: 2 Paroxysmal Sweats: 3 Orientation: 0-Oriented Tacttile Disturbances: 0-None Auditory Disturbances: 0-None Visual Disturbances: 0-None Headache: 2-Mild CIWA-Ar Total Score: 10 S Progress Note (SOAP) Subjective: c/o anxiety, sweats, and headache. Objective: 06/15/19 11:33 Vital Signs 06/15/19 06/15/19 06:00 09:55 Temperature 97.5 F L 96.1 F L Pulse Rate 69 65 Respiratory 18 16 Rate Blood Pressure 113/68 131/54 L Lab Results WBC 4.7 K/mm3 (4.0-10.0) 06/15/19 08:00 RBC 4.48 M/mm3 (4.00-5.60) 06/15/19 08:00 Hgb 13.4 GM/dL (11.7-16.9) 06/15/19 08:00 Hct 40.7 % (35.4-49) 06/15/19 08:00 MCV 90.7 fl (80-96) 06/15/19 08:00 MCHC 33.0 g/dl (32.0-35.9) 06/15/19 08:00 RDW 13.5 % (11.9-15.9) 06/15/19 08:00 Plt Count 204 K/MM3 (134-434) 06/15/19 08:00 Sodium 144 mmol/L (136-145) 06/15/19 08:00 Potassium 4.5 mmol/L (3.5-5.1) 06/15/19 08:00 Chloride 111 mmol/L (98-107) H 06/15/19 08:00 Carbon Dioxide 29 mmol/L (21-32) 06/15/19 08:00 Anion Gap 4 MMOL/L (8-16) L 06/15/19 08:00 BUN 22.6 mg/dL (7-18) H 06/15/19 08:00 Creatinine 1.0 mg/dL (0.55-1.3) 06/15/19 08:00 Random Glucose 99 mg/dL (74-106) 06/15/19 08:00 Calcium 8.7 mg/dL (8.5-10.1) 06/15/19 08:00 Labs reviewed. Assessment: 06/15/19 11:33 AOX3, in no acute respiratory distress. Full ROM, ambulating in the unit. Withdrawal symptoms. Plan: continue detox.
--- NOTE | 2019-06-15 14:41 | CONSULT ---
[facility] Psychiatric Consult - Data Date of interview: 06/15/19 Admission source: [facility] Identifying data: This is one of multiple admissions to [facility] for this 44 y/ o AA male self-referred for detoxification treatment (alcohol, marihuana, cocaine). Patient is single, a father of two, homeless (longterm), unemployed and supported on SSI benefits. Substance Abuse History: Confirmed by patient in this interview. Details in current [facility] report as follows : Smoking history: Current every day smoker. Have you smoked in the past 12 months: Yes. Aproximately how many cigarettes per day: 40. Cigars Per Day: 0. Hx Chewing Tobacco Use: No. Initiated information on smoking cessation: Yes. 'Breaking Loose' booklet given: . - Substance & Tx. History. Hx Alcohol Use: Yes. Hx Substance Use: Yes. Substance Use Type: Alcohol, Cocaine. Hx Substance Use Treatment: Yes ([facility]). - Substances abused. Alcohol. Substance route: Oral. Frequency: Daily. Amount used: 18 beers & 1 pint jabari. Age of first use: 15. Date of last use: 06/13/19. Cocaine. Substance route: Inhalation. Frequency: Daily. Amount used: $100. Age of first use: 11. Date of last use: 06/13/19 Medical History: Medical history is remarkable for anemia and sickle cell trait. Noted report of past treatment for syphilis. Psychiatric History: Patient endorses a history of multiple psychiatric hospitalizations (trend started at age 10 (auditory hallucinations, impulsivity , erratic behaviors). Mr Mcnamara has received inpatient psychiatric care at several institutions ([facility], [facility] and other facilities in [facility]). Diagnosed with Schizophrenia, paranoid type. Patient reports a recent admission to [facility] in April 2018. He is prescribed seroquel 300 mg/hs + 100 mg/day. Chronically non-adherent to medications + OPD care (last took seroquel 10 days ago, as per self-report). GPatient is knowwn for utilizing local CPEP settings for medications refills. History of two suicide attempts (wrist-cutting in 2016 + ideation to jump off a roof in 2017). Physical/Sexual Abuse/Trauma History: Patient declines to discuss this domain. Additional Comment: Urine drug screen results: THC-Marijuana, CHANDANA-Cocaine. Noted. Mental Status Exam - Mental Status Exam Alert and Oriented to: Time, Place, Person Cognitive Function: Good Patient Appearance: Unkempt, Disheveled Mood: Withdrawn Affect: Mood Congruent, Constricted Patient Behavior: Fatigued, Cooperative Speech Pattern: Clear, Appropriate Voice Loudness: Normal Thought Process: Goal Oriented Thought Disorder: Not Present Hallucinations: Denies Suicidal Ideation: Denies Homicidal Ideation: Denies Insight/Judgement: Poor Sleep: Poorly, Difficulty falling asleep Appetite: Good Muscle strength/Tone: Normal Gait/Station: Normal Psychiatric Findings - Problem List ([place] 1, 2,3) (1) Schizophrenia Current Visit: Yes Status: Chronic (2) Alcohol dependence with uncomplicated withdrawal Current Visit: Yes Status: Acute (3) Cocaine dependence Current Visit: Yes Status: Chronic Qualifiers: Substance use status: uncomplicated Qualified Code(s): F14.20 - Cocaine dependence, uncomplicated (4) Cannabis dependence Current Visit: Yes Status: Chronic (5) Nicotine dependence Current Visit: Yes Status: Chronic Qualifiers: Nicotine product type: cigarettes Substance use status: in withdrawal Qualified Code(s): F17.213 - Nicotine dependence, cigarettes, with withdrawal (6) Substance induced mood disorder Current Visit: Yes Status: Chronic (7) Insomnia Current Visit: Yes Status: Chronic Qualifiers: Insomnia type: unspecified Qualified Code(s): G47.00 - Insomnia, unspecified (8) Non-compliance Current Visit: Yes Status: Chronic - Initial Treatment Plan Initial Treatment Plan: Records revisited ([facility]). Sleep hygiene. Psychoeducation. Detoxification. Support. AA meetings. Groups. Resumed : seroquel 100 mg po am + 200 mg po hs. Side effects/benefits discussed with patient. Mr Mcnamara gave verbal consent to the implementation of this plan of care. Observation.
[2019-06-15] MEDS: THIAMINE HCL 100 MG TABLET (FP) PO SCH (22:10)
[2019-06-15] MEDS: QUEtiapine FUMARATE 200 MG TABLET PO SCH (22:10)
[2019-06-16] MEDS: chlordiazePOXIDE HCL 25 MG CAPSULE PO SCH ×4 (05:41→23:27)
[2019-06-16] MEDS: PRENATAL VITAMINS W/ FOLIC ACID TABLET (FP) PO SCH (10:13)
[2019-06-16] MEDS: NICOTINE 21 MG/24 HOURS TOPICAL PATCH TD SCH (10:13)
[2019-06-16] MEDS: QUEtiapine FUMARATE 100 MG TABLET (FP) PO SCH (10:14)
--- NOTE | 2019-06-16 15:33 | PN ---
S CIWA - CIWA Score Nausea/Vomitin-No Nausea/No Vomiting Muscle Tremors: 2 Anxiety: 2 Agitation: 2 Paroxysmal Sweats: 2 Orientation: 0-Oriented Tacttile Disturbances: 0-None Auditory Disturbances: 0-None Visual Disturbances: 0-None Headache: 0-None Present CIWA-Ar Total Score: 8 BHS Progress Note (SOAP) Subjective: Chills, interrupted sleep Objective: 06/16/19 15:31 Last Vital Signs Temp Pulse Resp BP Pulse Ox 97.9 F 75 18 98/64 06/16/19 13:09 06/16/19 13:09 06/16/19 13:09 06/16/19 13:09 Laboratory Tests 06/15/19 06/15/19 06/15/19 08:00 08:00 08:00 WBC 4.7 RBC 4.48 Hgb 13.4 Hct 40.7 MCV 90.7 MCH 30.0 MCHC 33.0 RDW 13.5 Plt Count 204 MPV 8.9 Sodium 144 Potassium 4.5 Chloride 111 H Carbon Dioxide 29 Anion Gap 4 L BUN 22.6 H Creatinine 1.0 Est GFR (CKD-EPI)AfAm 104.15 Est GFR (CKD-EPI)NonAf 89.86 Random Glucose 99 Calcium 8.7 Total Bilirubin 0.2 AST 23 ALT 29 Alkaline Phosphatase 76 Total Protein 6.3 L Albumin 3.0 L RPR Titer Nonreactive Labs reviewed: bun 22.6 Assessment: 06/16/19 15:31 Withdrawal sxs Noted with azotemia Plan: Continue detox Azotemia: encouraged PO water intake
[2019-06-16] MEDS: THIAMINE HCL 100 MG TABLET (FP) PO SCH (22:12)
[2019-06-16] MEDS: MELATONIN 5 MG TABLETS PO PRN (22:13)
[2019-06-16] MEDS: QUEtiapine FUMARATE 200 MG TABLET PO SCH (22:13)
[2019-06-17] MEDS ORDERED: chlordiazePOXIDE HCL 10 MG CAPSULE PO PRN
[2019-06-17] MEDS: chlordiazePOXIDE HCL 10 MG CAPSULE PO SCH ×4 (05:58→22:11)
[2019-06-17] MEDS: PRENATAL VITAMINS W/ FOLIC ACID TABLET (FP) PO SCH (10:11)
[2019-06-17] MEDS: QUEtiapine FUMARATE 100 MG TABLET (FP) PO SCH (10:12)
[2019-06-17] MEDS: NICOTINE 21 MG/24 HOURS TOPICAL PATCH TD SCH (10:12)
[2019-06-17] MEDS: NICOTINE POLACRILEX 4 MG GUM BUC PRN (10:13)
--- NOTE | 2019-06-17 10:44 | PN ---
S CIWA - CIWA Score Nausea/Vomitin-No Nausea/No Vomiting Muscle Tremors: 2 Anxiety: 2 Agitation: 2 Paroxysmal Sweats: 1-Minimal Palms Moist Orientation: 0-Oriented Tacttile Disturbances: 0-None Auditory Disturbances: 0-None Visual Disturbances: 0-None Headache: 0-None Present CIWA-Ar Total Score: 7 BHS Progress Note (SOAP) Subjective: sweats shakes interrupted sleep tired Objective: 06/17/19 10:42 Vital Signs Temperature 97.5 F L 06/17/19 09:25 Pulse Rate 63 06/17/19 09:25 Respiratory Rate 17 06/17/19 09:25 Blood Pressure 125/70 06/17/19 09:25 O2 Sat by Pulse Oximetry (%) Laboratory Tests 06/15/19 06/15/19 06/15/19 08:00 08:00 08:00 WBC 4.7 RBC 4.48 Hgb 13.4 Hct 40.7 MCV 90.7 MCH 30.0 MCHC 33.0 RDW 13.5 Plt Count 204 MPV 8.9 Sodium 144 Potassium 4.5 Chloride 111 H Carbon Dioxide 29 Anion Gap 4 L BUN 22.6 H Creatinine 1.0 Est GFR (CKD-EPI)AfAm 104.15 Est GFR (CKD-EPI)NonAf 89.86 Random Glucose 99 Calcium 8.7 Total Bilirubin 0.2 AST 23 ALT 29 Alkaline Phosphatase 76 Total Protein 6.3 L Albumin 3.0 L RPR Titer Nonreactive labs pending aaox3 ambulating no acute distress Assessment: 06/17/19 10:43 withdrawal sx Plan: continue detox increase fluids
[2019-06-17] MEDS: THIAMINE HCL 100 MG TABLET (FP) PO SCH (22:10)
[2019-06-17] MEDS: QUEtiapine FUMARATE 200 MG TABLET PO SCH (22:11)
[2019-06-18] MEDS: chlordiazePOXIDE HCL 10 MG CAPSULE PO SCH ×2 (06:15→16:52)
[2019-06-18] MEDS: QUEtiapine FUMARATE 100 MG TABLET (FP) PO SCH (10:25)
[2019-06-18] MEDS: NICOTINE 21 MG/24 HOURS TOPICAL PATCH TD SCH (10:25)
[2019-06-18] MEDS: PRENATAL VITAMINS W/ FOLIC ACID TABLET (FP) PO SCH (10:25)
--- NOTE | 2019-06-18 11:08 | PN ---
[facility] CIWA - CIWA Score Nausea/Vomitin-No Nausea/No Vomiting Muscle Tremors: 1-None Visible, but [place] Anxiety: 1-Mildly Anxious Agitation: 1-Slight > Activity Paroxysmal Sweats: No Perspiration Orientation: 0-Oriented Tacttile Disturbances: 0-None Auditory Disturbances: 0-None Visual Disturbances: 0-None Headache: 0-None Present CIWA-Ar Total Score: 3 BHS Progress Note (SOAP) Subjective: sweats tired Objective: 06/18/19 11:08 Vital Signs Temperature 97.9 F 06/18/19 09:30 Pulse Rate 81 06/18/19 09:30 Respiratory Rate 18 06/18/19 09:30 Blood Pressure 109/78 06/18/19 09:30 O2 Sat by Pulse Oximetry (%) aaox3 ambulating no acute distress Assessment: 06/18/19 11:08 mild withdrawals Plan: continue detox increase fluids d/c in am
[2019-06-18] MEDS: THIAMINE HCL 100 MG TABLET (FP) PO SCH (22:27)
[2019-06-18] MEDS: QUEtiapine FUMARATE 200 MG TABLET PO SCH (22:27)
[2019-06-19] MEDS ORDERED: chlordiazePOXIDE HCL 10 MG CAPSULE PO ONE (05:00)
--- NOTE | 2019-06-19 08:46 | DS ---
[facility] Detox Discharge Summary Admission Date: 06/14/19 Discharge Date: 06/19/19 - History Present History: Alcohol Dependence, Cannabis Dependence, Cocaine Dependence - Physical Exam Results Vital Signs: Vital Signs Temperature 97 F L 06/19/19 07:26 Pulse Rate 78 06/19/19 07:26 Respiratory Rate 18 06/19/19 07:26 Blood Pressure 109/71 06/19/19 07:26 O2 Sat by Pulse Oximetry (%) Pertinent Admission Physical Exam Findings: pt arrived in withdrawal Laboratory Tests 06/15/19 06/15/19 06/15/19 08:00 08:00 08:00 WBC 4.7 RBC 4.48 Hgb 13.4 Hct 40.7 MCV 90.7 MCH 30.0 MCHC 33.0 RDW 13.5 Plt Count 204 MPV 8.9 Sodium 144 Potassium 4.5 Chloride 111 H Carbon Dioxide 29 Anion Gap 4 L BUN 22.6 H Creatinine 1.0 Est GFR (CKD-EPI)AfAm 104.15 Est GFR (CKD-EPI)NonAf 89.86 Random Glucose 99 Calcium 8.7 Total Bilirubin 0.2 AST 23 ALT 29 Alkaline Phosphatase 76 Total Protein 6.3 L Albumin 3.0 L RPR Titer Nonreactive today pt is aaox3 ambulating no s/s of withdrawals - Treatment Hospital Course: Detox Protocol Followed, Detoxed Safely, Responded well, Discharged Condition Good, Rehab Referral Accepted Patient has Accepted a Rehab Referral to: pt referred to [facility] inpatient re[facility] - Medication Discharge Medications: Ambulatory Orders Quetiapine Fumarate [Seroquel -] 100 mg PO DAILY 01/09/18 Quetiapine Fumarate [Seroquel -] 300 mg PO HS 01/09/18 - Diagnosis (1) Alcohol dependence with uncomplicated withdrawal Current Visit: Yes Status: Chronic (2) Cannabis dependence Current Visit: Yes Status: Chronic (3) Cocaine dependence Current Visit: Yes Status: Chronic Qualifiers: Substance use status: uncomplicated Qualified Code(s): F14.20 - Cocaine dependence, uncomplicated (4) Depression Current Visit: Yes Status: Chronic Qualifiers: Major depression episode severity: unspecified (5) Insomnia Current Visit: Yes Status: Chronic Qualifiers: Insomnia type: unspecified Qualified Code(s): G47.00 - Insomnia, unspecified (6) Nicotine dependence Current Visit: Yes Status: Chronic Qualifiers: Nicotine product type: cigarettes Substance use status: in withdrawal Qualified Code(s): F17.213 - Nicotine dependence, cigarettes, with withdrawal (7) Schizophrenia Current Visit: Yes Status: Chronic (8) Substance induced mood disorder Current Visit: Yes Status: Chronic (9) Paranoid schizophrenia Current Visit: No Status: Chronic - AMA Did Patient Leave Against Medical Advice: No
[2019-06-19 09:27] VITALS: BP 131/88; PULSE 89; TEMP 97.2
== END 2019-06-19 11:27 | disposition home or self-care (01) | DRG 774 ==
LOC: YASAS 13:53 → Y6N 17:51
PROVIDERS: ADMIT Surgery; ATTEND Surgery
PROC: HZ2ZZZZ Detoxification Services for Substance Abuse Treatment (ICD-10-PCS; principal; 2019-06-14)
DX: F10.230 Alcohol dependence with withdrawal, uncomplicated (principal); F14.20 Cocaine dependence, uncomplicated; F12.20 Cannabis dependence, uncomplicated; F17.210 Nicotine dependence, cigarettes, uncomplicated; F20.0 Paranoid schizophrenia; F19.24 Other psychoactive substance dependence with psychoactive substance-induced mood disorder; F32.9 Major depressive disorder, single episode, unspecified; G47.00 Insomnia, unspecified; D57.3 Sickle-cell trait; Z91.19 Patient's noncompliance with other medical treatment and regimen; Z87.438 Personal history of other diseases of male genital organs
CPT/HCPCS: 36415; 71046-TC-FY; 80053; 85027; 86593

== ENCOUNTER 2020-07-08 10:21 | Inpatient (IN) | payer BC ==
--- NOTE | 2020-07-08 10:48 | BHS.RME ---
Substance Use & Tx History - Substance Use History Alcohol Substance amount: 3-4 pints E&J + Beers Frequency of use: Daily Substance route: Oral Date of Last Use: 07/08/20 (started age 11 drank one beer 4AM) Cocaine-Crack Substance amount: $80 Frequency of use: Daily Substance route: Smoking Date of Last Use: 07/08/20 (started age 35 used 4AM today) Nicotine Substance amount: 2 packs Frequency of use: Daily Substance route: Smoking Date of Last Use: 07/08/20 - Last Treatment Treatment type: Substance Use Disorder ([facility]) Where was last treatment: Detox Physical/Psych/Mental Status - Behavior General Behavior: Increased activity (restlessness, agitation) Eye Contact: Normal - Cooperativeness Cooperativeness: Cooperative - Thinking Thought Processes: Tight, Logical, Goal Directed - Physical Health Problems Is patient presently having any pain?: No Does patient presently have any injuries (include location): No Does patient currently have a fever: No Is patient : No CIWA Nausea/Vomitin-Mild Nausea/No Vomiting Muscle Tremors: 3 Anxiety: 3 Agitation: 4-Moderately Restless Paroxysmal Sweats: 1-Minimal Palms Moist Orientation: 1-Uncertain about Date Tacttile Disturbances: 0-None Auditory Disturbances: 0-None Visual Disturbances: 0-None Headache: 2-Mild CIWA-Ar Total Score: 15
--- NOTE | 2020-07-08 11:28 | HP ---
CIWA Score Nausea/Vomitin-Mild Nausea/No Vomiting Muscle Tremors: 3 Anxiety: 3 Agitation: 4-Moderately Restless Paroxysmal Sweats: 1-Minimal Palms Moist Orientation: 1-Uncertain about Date Tacttile Disturbances: 0-None Auditory Disturbances: 0-None Visual Disturbances: 0-None Headache: 2-Mild CIWA-Ar Total Score: 15 - Admission Criteria OASAS Guidelines: Admission for Medically Managed Detox: Requires at least one of the followin. CIWA greater than 12 2. Seizures within the past 24 hours 3. Delirium tremens within the past 24 hours 4. Hallucinations within the past 24 hours 5. Acute intervention needed for co occurring medical disorder 6. Acute intervention needed for co occurring psychiatric disorder 7. Severe withdrawal that cannot be handled at a lower level of care (continued vomiting, continued diarrhea, abnormal vital signs) requiring intravenous medication and/or fluids 8. Admitting History and Physical - Admission Chief Complaint: Mr. Mcnamara is a 45 yo gentleman who presents to [facility] requesting detox for alcohol use disorder. History of Present Illness: Mr. Mcnamara is a 45 yo gentleman who presents to [facility] requesting detox for alcohol use disorder. He was last here between March 10 and 2021, completed detox. PMH: SS trait, anemia, Hep C untreated PSH: none Psych: schizophrenia on Seroquel, none in 2 weeks SOC: Jacob, with aunt Legal: none Substance Use History Alcohol Substance amount: 3-4 pints E&J + Beers Frequency of use: Daily Substance route: Oral Date of Last Use: 07/08/20 (started age 11 drank one beer 4AM) No seizures Blackout one year ago Cocaine-Crack Substance amount: $80 Frequency of use: Daily Substance route: Smoking Date of Last Use: 07/08/20 (started age 35 used 4AM today) Nicotine Substance amount: 2 packs Frequency of use: Daily Substance route: Smoking Date of Last Use: 07/08/20 First use age 12y - Last Treatment Treatment type: Substance Use Disorder ([facility]) Where was last treatment: Detox History Source: Patient Limitations to Obtaining History: No Limitations - Past Medical History Hepatobiliary: Yes: Hepatitis C Heme/Onc: Yes: Sickle Cell Trait Psych: Yes: Depression, Schizophrenia - Past Surgical History Past Surgical History: Yes: None - Smoking History Smoking history: Current every day smoker Have you smoked in the past 12 months: Yes Aproximately how many cigarettes per day: 40 - Alcohol/Substance Use Hx Alcohol Use: Yes Number of Drinks Daily: 10 - Social History ADL: Independent Occupation: unemployed History of Recent Travel: No Admission ROS [facility] - [facility] Allergies/Adverse Reactions: Allergies Allergy/AdvReac Type Severity Reaction Status Date / Time No Known Allergies Allergy Verified 03/10/20 15:23 Exam Limitations: No Limitations - Ebola screening Have you traveled outside of the country in the last 21 days: No Have you been sick,other than usual withdrawal symptoms: No Do you have a fever: No - Review of Systems Constitutional: Unintentional Wgt. Loss (30 lbs since February 2020) EENT: reports: Hearing Loss (lifelong, had surgery attempted as a child without benefit) Respiratory: reports: No Symptoms reported Cardiac: reports: No Symptoms Reported GI: reports: No Symptoms Reported : reports: No Symptoms Reported Musculoskeletal: reports: No Symptoms Reported Integumentary: reports: No Symptoms Reported Neuro: reports: No Symptoms reported Endocrine: reports: No Symptoms Reported Hematology: reports: No Symptoms Reported Psychiatric: reports: No Sypmtoms Reported Patient History - Patient Medical History Hx Anemia: No (SICKLE CELL TRAIT) Hx Asthma: No Hx Chronic Obstructive Pulmonary Disease (COPD): No Hx Cancer: No Hx Cardiac Disorders: No Hx Congestive Heart Failure: No Hx Hypertension: No Hx Hypercholesterolemia: No Hx Pacemaker: No HX Cerebrovascular Accident: No Hx Seizures: No Hx Dementia: No Hx Diabetes: No Hx Gastrointestinal Disorders: No Hx Liver Disease: No Hx Genitourinary Disorders: No Hx Sexually Transmitted Disorders: No Hx Renal Disease (ESRD): No Hx Thyroid Disease: No Hx Human Immunodeficiency Virus (HIV): No Hx Hepatitis C: No Hx Depression: Yes Hx Suicide Attempt: No Hx Bipolar Disorder: No Hx Schizophrenia: Yes - Patient Surgical History Past Surgical History: No Hx Neurologic Surgery: No Hx Cataract Extraction: No Hx Cardiac Surgery: No Hx Lung Surgery: No Hx Breast Surgery: No Hx Breast Biopsy: No Hx Abdominal Surgery: No Hx Appendectomy: No Hx Cholecystectomy: No Hx Genitourinary Surgery: No Hx Section: No Hx Orthopedic Surgery: No Anesthesia Reaction: No - PPD History Date: 03/12/20 Results: 0 MM - Smoking Cessation Smoking history: Current every day smoker Have you smoked in the past 12 months: Yes Aproximately how many cigarettes per day: 40 Cigars Per Day: 0 Hx Chewing Tobacco Use: No Initiated information on smoking cessation: Yes 'Breaking Loose' booklet given: 07/08/20 Admission Physical Exam [facility] - Physical General Appearance: Yes: No Apparent Distress, Nourished, Appropriately Dressed, Anxious HEENTM: Yes: EOMI, Hearing grossly Normal, Normocephalic, Normal Voice, Other (TMs not visualized, wax in canal) Respiratory: Yes: Lungs Clear, No Respiratory Distress, No Accessory Muscle Use Neck: Yes: Within Normal Limits, Supple Breast: Yes: Breast Exam Deferred Cardiology: Yes: Regular Rhythm, Regular Rate Abdominal: Yes: Non Tender, Flat, Soft, Decreased BS Genitourinary: Yes: Other (deferred) Back: Yes: Normal Inspection Musculoskeletal: Yes: Gait Steady Extremities: Yes: Normal Inspection, Non-Tender Neurological: Yes: Alert, Normal Response Integumentary: Yes: Normal Color, Dry, Warm - Diagnostic (1) Sickle cell trait Current Visit: No Status: Chronic (2) Hepatitis C Current Visit: No Status: Chronic (3) Hearing loss Current Visit: Yes Status: Chronic (4) Alcohol dependence with uncomplicated withdrawal Current Visit: Yes Status: Acute (5) Cocaine dependence Current Visit: Yes Status: Acute Qualifiers: Substance use status: uncomplicated Qualified Code(s): F14.20 - Cocaine dependence, uncomplicated Comment: . (6) Nicotine dependence Current Visit: No Status: Chronic Qualifiers: Nicotine product type: cigarettes Substance use status: in withdrawal Qualified Code(s): F17.213 - Nicotine dependence, cigarettes, with withdrawal Comment: . (7) Schizophrenia Current Visit: Yes Status: Chronic Qualifiers: Schizophrenia type: paranoid schizophrenia Qualified Code(s): F20.0 - Paranoid schizophrenia Comment: . Cleared for Admission [facility] - Detox or Rehab [facility] Level of Care: Medically Managed Detox Regimen/Protocol: Librium Breathalyzer - Breathalyzer Breathalyzer: 0 Urine Drug Screen - Test Device Lot number: [id number] Expiration date: 01/28/22 - Control Is test valid?: Yes - Results Drug screen NEGATIVE: No Urine drug screen results: THC-Marijuana, CHANDANA-Cocaine Inpatient Rehab Admission - Rehab Decision to Admit Inpatient rehab admission?: No
[2020-07-08 11:43] VITALS: BMI 21.7
--- OUTSIDE RECORDS SUMMARY | 2020-07-08 12:01 | XMS ---
:1975 Author Organization [facility] Care Team Providers Name Role Phone MD George Unavailable Unavailable MD PRINCE Unavailable Unavailable MD VILMA Unavailable Unavailable Re-disclosure Warning The records that you are about to access may contain information from federally- assisted alcohol or drug abuse programs. If such information is present, then the following federally mandated warning applies: This information has been disclosed to you from records protected by federal confidentiality rules (42 CFR part 2). The federal rules prohibit you from making any further disclosure of this information unless further disclosure is expressly permitted by the written consent of the person to whom it pertains or as otherwise permitted by 42 CFR part 2. A general authorization for the release of medical or other information is NOT sufficient for this purpose. The Federal rules restrict any use of the information to criminally investigate or prosecute any alcohol or drug abuse patient.The records that you are about to access may contain highly sensitive health information, the redisclosure of which is protected by Article 27-F of the [facility] Public Health law. If you continue you may haveaccess to information: Regarding HIV / AIDS; Provided by facilities licensed or operated by the [facility] Office of Mental Health; or Provided by the [facility] Office for People With Developmental Disabilities. If such information is present, then the following [facility] mandated warning applies: This information has been disclosed to you from confidential records which are protected by state law. State law prohibits you from making any further disclosure of this information without the specific written consent of the person to whom it pertains, or as otherwise permitted by law. Any unauthorized further disclosure in violation of state law may result in a fine or snf sentence or both. A general authorization for the release of medical or other information is NOT sufficient authorization for further disclosure. Allergies and Adverse Reactions Type Description Substance Reaction Status Data Source(s ) Drug allergy No Known Drug No Known Drug NKA Simba Cheatham Allergies Allergies Hospital Encounters Encounter Providers Location Date Indications Data Source(s ) Emergency Attender: Jim 06/25/2019 [place] Simba Vazquez MD 07:00:00 PM Hospital EDT - 06/25/2019 09:15:00 PM [place] Patient discharged. Inpatient Attender: IVÁN GREGORY-1D 06/19/2019 01:10:00 [place] [facility] EDT - 07/02/2019 [facility] 10:15:00 PM EDT Patient discharged. Outpatient [facility] 06/18/2019 03:32:00 PM EDT - [address] [place] [address] 03:03:00 PM EDT Patient discharged. Medications Medication Brand Start Product Dose Route Administrative Pharmacy [facility] Indications Reaction Description Data Name Date Form Instructions Instructions Source(s) quetiapine Quetia TABLET 100 ORAL complet Wh ite 200 MG Oral pine mg ed [place] Tablet [facility] [Seroquel] te Quetiapine Fumarate quetiapine Quetia TABLET 200 ORAL complet Wh ite 200 MG Oral pine mg ed [place] Tablet [facility] [Seroquel] te Quetiapine Fumarate Insurance Providers Payer name Policy type Policy ID Covered Covered green party's Policy P jonathan / Coverage green party ID relationship to Javed Inf ormation type javed [facility] [id number] [employer] 39 [facility] [id number] HE[employer] 39 MEDICAID [id number] PT [id number] BLUE CROSS [id number] PT [id number] HEALTH PLUS 39 SELF PAY 0000 Self 0000 MEDICAID INP [id number] Self [id number] U REHAB [facility] EMPIRE [id number] Self [id number] [facility] 39 Problems, Conditions, and Diagnoses Code Display Name Description Problem Type Effective Dates Data Source(s) Z72.89 Other problems Z72.89 Diagnosis 06/25/2019 [place] related to lifestyle 09:11:00 PM EDT Hospital F14.10 Cocaine abuse, F14.10 Diagnosis 06/25/2019 [place] uncomplicated 09:11:00 PM EDT Hospit al F12.10 Cannabis abuse, F12.10 Diagnosis 06/25/2019 [place] uncomplicated 09:11:00 PM EDT Hospit al J98.11 Atelectasis J98.11 Diagnosis 06/25/2019 [place] 09:11:00 PM EDT Hospital K59.00 Constipation, K59.00 Diagnosis 06/25/2019 [facility] s unspecified 09:11:00 PM EDT Hospital Surgeries/Procedures Procedure Description Date Indications Data Source(s) Computed tomography of 06/25/2019 [facility] abdomen and pelvis with 12:00:00 AM EDT contrast (procedure) Results ID Date Data Source [id number] 03/10/2020 03:48:00 PM EDT [facility] Name Value Range Interpretation Description Data Sup porting Code Source(s) Document(s ) SARS [facility] CORONAVIRUS 2 RNA This lab was ordered by [facility] ct Bill Inter and reported by [facility]. ID Date Data Source [id number] 06/25/2019 07:39:00 PM EDT [facility] Name Value Range Interpretation Code Description Data Colleen rce(s) Supporting Document(s ) Lipase 38 U/L [place] [Enzymatic Hospital activity/vo lume] in Serum or Plasma ID Date Data Source [id number] 06/25/2019 07:39:00 PM EDT [facility] Name Value Range Interpretation Description Data Sup porting Code Source(s) Document(s ) Aspartate 56 U/L [place] aminotransferase [place] [Enzymatic Hospital activity/volume] in Serum or Plasma ID Date Data Source [id number] 06/25/2019 07:39:00 PM EDT [facility] Name Value Range Interpretation Description Data Sup porting Code Source(s) Document(s ) Alanine 85 U/L [place] aminotransferase [place] [Enzymatic Hospital activity/volume] in Serum or Plasma ID Date Data Source [id number] [facility] Value Range Interpretation Description Data Sup porting Code Source(s) Document(s ) Alkaline 87 U/L [place] phosphatase Hospital [Enzymatic activity/volume ] in Serum or Plasma ID Date Data Source [id number] 06/25/2019 07:39:00 PM [facility] Name Value Range Interpretation Description Data Sup porting Code Source(s) Document(s ) Bilirubin.t 0.2 mg/dL [facility] [Mass/volum e] in Serum or Plasma ID Date Data Source [id number] 06/25/2019 07:39:00 PM [facility] Value Range Interpretation Code Description Data Colleen rce(s) Supporting Document(s ) Albumin/Glob 1.4 [facility] [Mass Hospital Ratio] in Serum or Plasma ID Date Data Source [id number] 06/25/2019 07:39:00 PM [facility] Name Value Range Interpretation Description Data Sup porting Code Source(s) Document(s ) Albumin 4.3 g/dL [place] [Mass/volume Hospital ] in Serum or Plasma ID Date Data Source [id number] 06/25/2019 [facility]39[facility] Name Value Range Interpretation Description Data Sup porting Code Source(s) Document(s ) Protein 7.4 g/dL [place] [Mass/volume Hospital ] in Serum or Plasma ID Date Data Source [id number] 06/25/2019 [facility]39[facility] Name Value Range Interpretation Description Data Sup porting Code Source(s) Document(s ) Calcium 9.5 mg/dL [place] [Mass/volume Hospital ] in Serum or Plasma ID Date Data Source [id number] 06/25/2019 07:39:00 PM EDT [facility] Name Value Range Interpretation Code Description Data Colleen rce(s) Supporting Document(s ) Urea 21.0 [place] nitrogen/Cre Hospital atinine [Mass Ratio] in Serum or Plasma ID Date Data Source [id number] 06/25/2019 07:39:00 PM EDT [facility] Name Value Range Interpretation Description Data Sup porting Code Source(s) Document(s ) Creatinine 1.0 mg/dL [place] [Mass/volume] Hospital in Serum or Plasma ID Date Data Source [id number] 06/25/2019 07:39:00 PM EDT [facility] Name Value Range Interpretation Description Data Sup porting Code Source(s) Document(s ) Urea 21 mg/dL [place] nitrogen Hospital [Mass/volume ] in Serum or Plasma ID Date Data Source [id number] 06/25/2019 07:39:00 PM EDT [facility] Name Value Range Interpretation Code Description Data Colleen rce(s) Supporting Document(s ) Anion gap in 16 [place] Serum or [facility] Plasma ID Date Data Source [id number] 06/25/2019 07:39:00 PM EDT [facility] Name Value Range Interpretation Description Data Sup porting Code Source(s) Document(s ) Carbon 29 mmol/L [place] dioxide, Hospital total [Moles/volu me] in Serum or Plasma ID Date Data Source [id number] 06/25/2019 07:39:00 PM EDT [facility] Name Value Range Interpretation Description Data Sup porting Code Source(s) Document(s ) Chloride 101 [place] [Moles/volum mmol/L Hospital e] in Serum or Plasma ID Date Data Source [id number] 06/25/2019 07:39:00 PM EDT [facility] Name Value Range Interpretation Description Data Sup porting Code Source(s) Document(s ) Potassium 4.6 [place] [Moles/volume mmol/L Hospital ] in Serum or Plasma ID Date Data Source [id number] 06/25/2019 07:39:00 PM EDT [facility] Name Value Range Interpretation Description Data Sup porting Code Source(s) Document(s ) Sodium 141 mmol/L [place] [Moles/volu Hospital me] in Serum or Plasma ID Date Data Source [id number] 06/25/2019 07:39:00 PM EDT [facility] Name Value Range Interpretation Description Data Sup porting Code Source(s) Document(s ) Glucose 112 mg/dL [place] [Mass/volume Hospital ] in Serum or Plasma ID Date Data Source [id number] 06/25/2019 07:39:00 PM EDT [facility] Name Value Range Interpretation Description Data Sup porting Code Source(s) Document(s ) Leukocyte NEGATIVE [place] esterase Hospital [Presence] in Urine by Test strip ID Date Data Source [id number] 06/25/2019 07:39:00 PM EDT [facility] Name Value Range Interpretation Description Data Sup porting Code Source(s) Document(s ) URINE NEGATIVE [place] NITRITES Hospital ID Date Data Source [id number] 06/25/2019 07:39:00 PM EDT [facility] Name Value Range Interpretation Description Data Sup porting Code Source(s) Document(s ) Erythrocytes NEGATIVE [place] [#/volume] in Hospital Urine by Test strip ID Date Data Source [id number] 06/25/2019 07:39:00 PM EDT [facility] Name Value Range Interpretation Code Description Data Colleen rce(s) Supporting Document(s ) Bilirubin. NEGATIVE [place] total Hospital [Presence] in Urine by Test strip ID Date Data Source [id number] 06/25/2019 07:39:00 PM EDT [facility] Name Value Range Interpretation Description Data Sup porting Code Source(s) Document(s ) Urobilinogen 0.2 [place] [Units/volume] mg/dL Hospital in Urine by Test strip ID Date Data Source [id number] 06/25/2019 07:39:00 PM EDT [facility] Name Value Range Interpretation Description Data Sup porting Code Source(s) Document(s ) Ketones NEGATIVE [place] [Mass/volume Hospital ] in Urine by Test strip ID Date Data Source [id number] 06/25/2019 07:39:00 PM EDT [facility] Name Value Range Interpretation Description Data Sup porting Code Source(s) Document(s ) Glucose NEGATIVE [place] [Mass/volume Hospital ] in Urine by Test strip ID Date Data Source [id number] 06/25/2019 07:39:00 PM EDT [place] [facility] Name Value Range Interpretation Description Data Sup porting Code Source(s) Document(s ) Protein NEGATIVE [place] [Presence] Hospital in Urine by Test strip ID Date Data Source [id number] 06/25/2019 07:39:00 PM EDT [facility] Name Value Range Interpretation Code Description Data Colleen rce(s) Supporting Document(s ) pH of Urine 7.0 [place] by Test Hospital strip ID Date Data Source [id number] 06/25/2019 07:39:00 PM EDT [facility] Name Value Range Interpretation Code Description Data Supporting Source(s) Document(s ) Specific 1.010 [place] gravity of Hospital Urine by Test strip ID Date Data Source [id number] 06/25/2019 07:39:00 PM [facility] Name Value Range Interpretation Description Data Sup porting Code Source(s) Document(s ) Clarity in Urine CLEAR [place] by Refractometry Hospital automated ID Date Data Source [id number] 06/[facility]2019 [facility] Value Range Interpretation Code Description Data Colleen rce(s) Supporting Document(s ) Color of YELLOW [place] Urine Hospital ID Date Data Source [id number] 06/25/2019 07:39:00 PM [facility] THERAPEUTIC RANGES:UNFRACTIONATED HEPARI N THERAPY: 60-90 SECONDSARGATROBAN THERAPY: 49-99 SECONDS Name Value Range Interpretation Description Data Sup porting Code Source(s) Document(s ) aPTT in 32.8 s [place] Platelet poor [facility] plasma by Coagulation assay ID Date Data Source [id number] 06/25/2019 07:39:00 PM [facility] THERAPEUTIC RANGE FOR STANDARD ORALANTIC OAGULANT THERAPY: 2.0-3.0THERAPEUTIC RANGE FOR HIGH DOSE ORALANTICOAGULANT THERAPY (MECHANICAL HEARTVALVE REPLACEMENT): 2.5-3.5 Name Value Range Interpretation Description Data Sup porting Code Source(s) Document(s ) INR in Platelet 0.9 [place] poor plasma by Hospital Coagulation assay ID Date Data Source [id number] 06/25/2019 07:39:00 PM [facility] Name Value Range Interpretation Description Data Sup porting Code Source(s) Document(s ) PT panel - 10.1 s [place] Platelet poor [facility] plasma by Coagulation assay ID Date Data Source [id number] 06/25/2019 07:39:00 PM EDT [facility] Name Value Range Interpretation Code Description Data Supporting Source(s) Document(s ) NUCLEATED RBCS 0.0 % [place] (AUTO Hospital DIFF%)DIS ID Date Data Source [id number] 06/25/2019 07:39:00 PM EDT [facility] Value Range Interpretation Description Data Sup porting Code Source(s) Document(s ) Differential AUTOMATED [place] cell count Hospital method - Blood ID Date Data Source [id number] 06/25/2019 07:39:00 PM EDT [facility] Value Range Interpretation Description Data Sup porting Code Source(s) Document(s ) Immature 0.09 [place] granulocytes 10*3/uL Hospital [#/volume] in Blood by Automated count ID Date Data Source [id number] 06/25/[facility] Interpretation Description Data Sup porting Code Source(s) Document(s ) Basophils 0.07 [place] [#/volume] in 10*3/uL Hospital Blood by Automated count ID Date Data Source [id number] 06/25/2019 07:39:00 PM EDT [facility] Name Value Range Interpretation Description Data Sup porting Code Source(s) Document(s ) Eosinophils 0.39 [place] [#/volume] in 10*3/uL Hospital Blood by Automated count ID Date Data Source [id number] 06/25/2019 07:39:00 PM EDT [facility] Name Value Range Interpretation Description Data Sup porting Code Source(s) Document(s ) Monocytes 0.97 [place] [#/volume] in 10*3/uL Hospital Blood by Automated count ID Date Data Source [id number] 06/25/2019 07:39:00 PM EDT [facility] Value Range Interpretation Description Data Sup porting Code Source(s) Document(s ) Lymphocytes 1.99 [place] [#/volume] in 10*3/uL Hospital Blood by Automated count ID Date Data Source [id number] 06/25/2019 07:39:00 PM EDT [facility] Value Range Interpretation Description Data Sup porting Code Source(s) Document(s ) Neutrophils 3.17 [place] [#/volume] in 10*3/uL [facility] Blood by Automated count ID Date Data Source [id number] 06/25/2019 07:39:00 PM EDT [facility] Value Range Interpretation Description Data Sup porting Code Source(s) Document(s ) Nucleated 0.0 % [place] erythrocytes/10 Hospital 0 leukocytes [Ratio] in Blood by Automated count ID Date Data Source [id number] 06/25/2019 07:39:00 PM EDT [facility] Value Range Interpretation Description Data Sup porting Code Source(s) Document(s ) Immature 1.3 % [place] granulocytes/10 Hospital 0 leukocytes in Blood by Automated count ID Date Data Source [id number] 06/25/2019 07:39:00 PM EDT [facility] Value Range Interpretation Description Data Sup porting Code Source(s) Document(s ) Basophils/100 1.0 % [place] leukocytes in Hospital Blood by Automated count ID Date Data Source [id number] 06/25/2019 07:39:00 PM EDT [facility] Value Range Interpretation Description Data Sup porting Code Source(s) Document(s ) Eosinophils/100 5.8 % [place] leukocytes in Hospital Blood by Automated count ID Date Data Source [id number] 06/25/2019 07:39:00 PM EDT [place] [facility] Name Value Range Interpretation Description Data Sup porting Code Source(s) Document(s ) Monocytes/100 14.5 % [place] leukocytes in Hospital Blood by Automated count ID Date Data Source [id number] 06/25/2019 07:39:00 PM EDT [facility] Name Value Range Interpretation Description Data Sup porting Code Source(s) Document(s ) Lymphocytes/10 29.8 % [place] 0 leukocytes Hospital in Blood by Automated count ID Date Data Source [id number] 06/25/2019 07:39:00 PM EDT [facility] Name Value Range Interpretation Description Data Sup porting Code Source(s) Document(s ) Neutrophils/10 47.6 % [place] 0 leukocytes Hospital in Blood by Automated count ID Date Data Source [id number] 06/25/2019 07:39:00 PM EDT [facility] Name Value Range Interpretation Description Data Sup porting Code Source(s) Document(s ) Platelet mean 10.6 fL [place] volume Hospital [Entitic volume] in Blood by Automated count ID Date Data Source [id number] 06/25/2019 07:39:00 PM [facility] Value Range Interpretation Description Data Sup porting Code Source(s) Document(s ) Platelets 200 [place] [#/volume] in 10*3/uL Hospital Blood by Automated count ID Date Data Source [id number] 06/25/2019 07:39:00 PM EDT [facility] Name Value Range Interpretation Description Data Sup porting Code Source(s) Document(s ) Erythrocyte 13.1 % [place] distribution Hospital width [Ratio] by Automated count ID Date Data Source [id number] 06/25/2019 07:39:00 PM EDT [facility] Name Value Range Interpretation Description Data Sup porting Code Source(s) Document(s ) Erythrocyte mean 34.5 [place] corpuscular g/dL Hospital hemoglobin concentration [Mass/volume] by Automated count ID Date Data Source [id number] 06/25/2019 07:39:00 PM EDT [facility] Value Range Interpretation Description Data Sup porting Code Source(s) Document(s ) Erythrocyte 29.2 pg [facility] corpuscular hemoglobin [Entitic mass] by Automated count ID Date Data Source [id number] 06/25/2019 07:39:00 PM EDT [facility] Value Range Interpretation Description Data Sup porting Code Source(s) Document(s ) Erythrocyte 84.6 fL [facility] Hospital corpuscular volume [Entitic volume] by Automated count ID Date Data Source [id number] 06/25/2019 [facility]39[facility] Value Range Interpretation Description Data Sup porting Code Source(s) Document(s ) Hematocrit 42.3 % [place] [Volume Hospital Fraction] of Blood by Automated count ID Date Data Source [id number] 06/25/2019 07:39:00 PM [facility] Value Range Interpretation Description Data Sup porting Code Source(s) Document(s ) Hemoglobin 14.6 g/dL [place] [Mass/volume] Hospital in Blood ID Date Data Source [id number] 06/25/2019 07[facility]39:[facility] Value Range Interpretation Description Data Sup porting Code Source(s) Document(s ) Erythrocytes 5.00 [place] [#/volume] in 10*6/uL Hospital Blood by Automated count ID Date Data Source [id number] 06/25/2019 07:39:00 [facility] Value Range Interpretation Description Data Sup porting Code Source(s) Document(s ) Leukocytes 6.7 [place] [#/volume] in 10*3/uL Hospital Blood by Automated count Procedure Social History Code Duration Value Status Description Data Source(s ) Smoking Unknown if ever completed Unknown if ever [facility] smoked smoked Hospital Vital Signs ID Date Data Source UNK Name Value Range Interpretation Code Description Data Source(s) Diastolic blood 72 mm[Hg] 72 mm[Hg] [facility] pressure Hospital Systolic blood 131 mm[Hg] 131 mm[Hg] [facility] pressure Hospital Respiratory rate 20 /min 20 /min [facility] Heart rate 72 /min 72 /min [facility] Body temperature 36.70717 36.02774 [facility] Body temperature 97.9 [degF] 97.9 [degF] [facility] Body mass index 25.0 kg/m2 25.0 kg/m2 [facility] (BMI) [Ratio] Hospital Body weight 157.32 157.32 [lb_av] [facility] [lb_av] Hospital
[2020-07-08] MEDS ORDERED: MAG HYDROX/AL HYDROX/SIMETH 30 ML UNIT-DOSE CUP PO PRN (12:02)
[2020-07-08] MEDS ORDERED: MENTHOL/PHENOL 1 EACH UD MM PRN (12:02)
[2020-07-08] MEDS ORDERED: BISMUTH SUBSALICYLATE 262 MG/15 ML BTL PO PRN (12:02)
[2020-07-08] MEDS ORDERED: MAGNESIUM HYDROX 2400MG/30ML ORAL SUSPENSION 30 ML CUP PO PRN (12:02)
[2020-07-08] MEDS ORDERED: ACETAMINOPHEN 325 MG TABLET (FP) PO PRN ×2 (12:02)
[2020-07-08] MEDS ORDERED: IBUPROFEN 400 MG TABLET (FP) PO PRN (12:02)
[2020-07-08] MEDS ORDERED: chlordiazePOXIDE HCL 25 MG CAPSULE PO PRN (12:02)
[2020-07-08] MEDS ORDERED: MAGNESIUM CITRATE 300 ML BOTTLE PO PRN (12:02)
[2020-07-08] MEDS ORDERED: METHOCARBAMOL 500 MG TABLET PO PRN (12:02)
[2020-07-08] MEDS ORDERED: ONDANSETRON *ODT* 4 MG TABLET SL PRN (12:02)
[2020-07-08] MEDS: NICOTINE 21 MG/24 HOURS TOPICAL PATCH TD SCH (12:32)
[2020-07-08] MEDS ORDERED: hydrOXYzine PAMOATE 25 MG CAPSULE (FP) PO SCH (14:00)
[2020-07-08] MEDS ORDERED: hydrOXYzine PAMOATE 25 MG CAPSULE (FP) PO PRN (14:06)
--- OUTSIDE RECORDS SUMMARY | 2020-07-08 14:49 | XMS ---
:1975 Author Organization [facility] Care Team Providers Name Role Phone MD [...] is protected by Article 27-F of the [facility] Public Health law. If you continue you may haveaccess to information: Regarding HIV / AIDS; Provided by facilities licensed or operated by the [facility] Office of Mental Health; or Provided by the [facility] Office for People With Developmental Disabilities. If such information is present, then the following [facility] mandated warning applies: This information has been [...] law may result in a fine or retirement sentence or both. A general authorization for [...] discharged. Inpatient Attender: IVÁN GREGORY-1D [facility] - 07/02/2019 [facility] 10:15:00 PM EDT Patient discharged. Outpatient [facility] 06/18/2019 03:32:00 PM EDT - [address] [place] [address] 03:03:00 PM EDT Patient discharged. Medications Medication Brand Start Product Dose Route Administrative Pharmacy [facility] Hospital Indications Reaction Description Data Name Date Form Instructions Instructions Source(s) quetiapine Quetia TABLET 100 ORAL complet Wh ite 200 MG Oral pine mg ed [place] Tablet [facility] [Seroquel] te Quetiapine Fumarate quetiapine Quetia TABLET 200 ORAL complet Wh ite 200 MG Oral pine mg ed [place] Tablet [facility] [Seroquel] te Quetiapine Fumarate Insurance Providers Payer name Policy type Policy ID Covered Covered alliance party's Policy P jonathan / Coverage alliance party ID relationship to Javed Inf ormation type javed [facility] [id number] [employer] 39 [facility]IRE [facility] [id number] [employer] 39 MEDICAID [id number] PT [id number] BLUE CROSS [id number] PT [id number] HEALTH PLUS 39 SELF PAY 0000 Self 0000 MEDICAID INP [id number] Self [id number] U REHAB [facility] EMPIRE [id number] Self [id number] [facility] 39 Problems, Conditions, and Diagnoses Code Display [...] Hospit al J98.11 Atelectasis J98.11 Diagnosis 06/25/2019 [facility] 09:11:00 PM EDT Hospital K59.00 Constipation, K59.00 Diagnosis 06/25/2019 [facility] s unspecified 09:11:00 PM EDT Hospital Surgeries/Procedures Procedure Description Date Indications Data Source(s) Computed tomography of 06/25/2019 [facility] abdomen and pelvis with 12:00:00 AM EDT contrast (procedure) Results ID Date Data Source [id number] 03/10/2020 03:48:00 PM EDT [facility] Name Value Range Interpretation Description Data Sup porting Code Source(s) Document(s ) SARS [facility] CORONAVIRUS 2 RNA This lab was ordered by [facility] Bill Inter and reported by [facility]. ID Date Data Source [id number] 06/25/2019 07:39:00 PM EDT [facility] Name Value Range Interpretation Code Description Data Colleen rce(s) Supporting Document(s ) Lipase 38 U/L [facility] [Enzymatic Hospital activity/vo lume] in Serum or Plasma ID Date Data Source [id number] 06/25/2019 07:39:00 PM EDT [facility] Name Value Range Interpretation Description Data Sup porting Code Source(s) Document(s ) Aspartate 56 U/L [place] aminotransferase [place] [Enzymatic Hospital activity/volume] in Serum or Plasma ID Date Data Source [id number] 06/25/2019 07:39:00 PM EDT [facility] Name Value Range Interpretation Description Data Sup porting Code Source(s) Document(s ) Alanine 85 U/L [place] aminotransferase [place] [Enzymatic Hospital activity/volume] in Serum or Plasma ID Date Data Source [id number] [facility] Interpretation Description Data Sup porting Code Source(s) Document(s ) Alkaline 87 U/L [facility] phosphatase Hospital [Enzymatic activity/volume ] in Serum or Plasma ID Date Data Source [id number] 06/25/2019 07:39:00 PM [facility] Name Value Range Interpretation Description Data Sup porting Code Source(s) Document(s ) Bilirubin.t 0.2 mg/dL [facility] [Mass/volum e] in Serum or Plasma ID Date Data Source [id number] 06/25/2019 07:39:00 PM [facility] Value Range Interpretation Code Description Data Colleen rce(s) Supporting Document(s ) Albumin/Glob 1.4 [facility] [Mass Hospital Ratio] in Serum or Plasma ID Date Data Source [id number] 06/25/2019 07:39:00 PM [facility] Name Value Range Interpretation Description Data Sup porting Code Source(s) Document(s ) Albumin 4.3 g/dL [facility] [Mass/volume Hospital ] in Serum or Plasma ID Date Data Source [id number] 06/25/2019 07[facility]39[facility] Value Range Interpretation Description Data Sup porting Code Source(s) Document(s ) Protein 7.4 g/dL [facility] [Mass/volume Hospital ] in Serum or Plasma ID Date Data Source [id number] 06/25/2019 07:39:[facility] Name Value Range Interpretation Description Data Sup porting Code Source(s) Document(s ) Calcium 9.5 mg/dL [facility] [Mass/volume Hospital ] in Serum or Plasma ID Date Data Source [id number] 06/25/2019 07:39:00 PM EDT [facility] Name Value Range Interpretation Code Description Data Colleen rce(s) Supporting Document(s ) Urea 21.0 [facility] nitrogen/Cre Hospital atinine [Mass Ratio] in Serum or Plasma ID Date Data Source [id number] 06/25/2019 07:39:00 PM EDT [facility] Name Value Range Interpretation Description Data Sup porting Code Source(s) Document(s ) Creatinine 1.0 mg/dL [facility] [Mass/volume] Hospital in Serum or Plasma ID Date Data Source [id number] 06/25/2019 07:39:00 PM EDT [facility] Name Value Range Interpretation Description Data Sup porting Code Source(s) Document(s ) Urea 21 mg/dL [facility] nitrogen Hospital [Mass/volume ] in Serum or Plasma ID Date Data Source [id number] 06/25/2019 07:39:00 PM EDT [facility] Name Value Range Interpretation Code Description Data Colleen rce(s) Supporting Document(s ) Anion gap in 16 [facility] Serum or [facility] Plasma ID Date Data Source [id number] 06/25/2019 07:39:00 PM EDT [facility] Name Value Range Interpretation Description Data Sup porting Code Source(s) Document(s ) Carbon 29 mmol/L [facility] dioxide, Hospital total [Moles/volu me] in Serum or Plasma ID Date Data Source [id number] 06/25/2019 07:39:00 PM EDT [facility] Name Value Range Interpretation Description Data Sup porting Code Source(s) Document(s ) Chloride 101 [facility] [Moles/volum mmol/L Hospital e] in Serum or Plasma ID Date Data Source [id number] 06/25/2019 07:39:00 PM EDT [facility] Name Value Range Interpretation Description Data Sup porting Code Source(s) Document(s ) Potassium 4.6 [facility] [Moles/volume mmol/L Hospital ] in Serum or Plasma ID Date Data Source [id number] 06/25/2019 07:39:00 PM EDT [facility] Name Value Range Interpretation Description Data Sup porting Code Source(s) Document(s ) Sodium 141 mmol/L [facility] [Moles/volu Hospital me] in Serum or Plasma ID Date Data Source [id number] 06/25/2019 07:39:00 PM EDT [facility] Name Value Range Interpretation Description Data Sup porting Code Source(s) Document(s ) Glucose 112 mg/dL [facility] [Mass/volume Hospital ] in Serum or Plasma ID Date Data Source [id number] 06/25/2019 07:39:00 PM EDT [facility] Name Value Range Interpretation Description Data Sup porting Code Source(s) Document(s ) Leukocyte NEGATIVE [facility] esterase Hospital [Presence] in Urine by Test strip ID Date Data Source [id number] 06/25/2019 07:39:00 PM EDT [facility] Name Value Range Interpretation Description Data Sup porting Code Source(s) Document(s ) URINE NEGATIVE [facility] NITRITES Hospital ID Date Data Source [id number] 06/25/2019 07:39:00 PM EDT [facility] Name Value Range Interpretation Description Data Sup porting Code Source(s) Document(s ) Erythrocytes NEGATIVE [facility] [#/volume] in Hospital Urine by Test strip ID Date Data Source [id number] 06/25/2019 07:39:00 PM EDT [facility] Name Value Range Interpretation Code Description Data Colleen rce(s) Supporting Document(s ) Bilirubin. NEGATIVE [facility] total Hospital [Presence] in Urine by Test strip ID Date Data Source [id number] 06/25/2019 07:39:00 PM EDT [facility] Name Value Range Interpretation Description Data Sup porting Code Source(s) Document(s ) Urobilinogen 0.2 [facility] [Units/volume] mg/dL Hospital in Urine by Test strip ID Date Data Source [id number] 06/25/2019 07:39:00 PM EDT [facility] Name Value Range Interpretation Description Data Sup porting Code Source(s) Document(s ) Ketones NEGATIVE [facility] [Mass/volume Hospital ] in Urine by Test strip ID Date Data Source [id number] 06/25/2019 07:39:00 PM EDT [facility] Name Value Range Interpretation Description Data Sup porting Code Source(s) Document(s ) Glucose NEGATIVE [facility] [Mass/volume Hospital ] in Urine by Test strip ID Date Data Source [id number] 06/25/2019 07:39:00 PM EDT [facility] Name Value Range Interpretation Description Data Sup porting Code Source(s) Document(s ) Protein NEGATIVE [facility] [Presence] Hospital in Urine by Test strip ID Date Data Source [id number] 06/25/2019 07:39:00 PM EDT [facility] Name Value Range Interpretation Code Description Data Colleen rce(s) Supporting Document(s ) pH of Urine 7.0 [facility] by Test Hospital strip ID Date Data Source [id number] 06/25/2019 07:39:00 PM EDT [facility] Name Value Range Interpretation Code Description Data Supporting Source(s) Document(s ) Specific 1.010 [facility] gravity of Hospital Urine by Test strip ID Date Data Source [id number] 06/25/2019 07:39:00 PM [facility] Name Value Range Interpretation Description Data Sup porting Code Source(s) Document(s ) Clarity in Urine CLEAR [facility] by Refractometry Hospital automated ID Date Data Source [id number] 06/25/2019 07:39:[facility] Name Value Range Interpretation Code Description Data Colleen rce(s) Supporting Document(s ) Color of YELLOW [facility] Urine Hospital ID Date Data Source [id number] 06/25/2019 07:39:00 PM [facility] THERAPEUTIC RANGES:UNFRACTIONATED HEPARI N THERAPY: 60-90 SECONDSARGATROBAN THERAPY: 49-99 SECONDS Name Value Range Interpretation Description Data Sup porting Code Source(s) Document(s ) aPTT in 32.8 s [facility] Platelet poor [facility] plasma by Coagulation assay ID Date Data Source [id number] 06/25/2019 07:39:00 PM [facility] THERAPEUTIC RANGE FOR STANDARD ORALANTIC OAGULANT THERAPY: 2.0-3.0THERAPEUTIC RANGE FOR HIGH DOSE ORALANTICOAGULANT THERAPY (MECHANICAL HEARTVALVE REPLACEMENT): 2.5-3.5 Name Value Range Interpretation Description Data Sup porting Code Source(s) Document(s ) INR in Platelet 0.9 [facility] poor plasma by Hospital Coagulation assay ID Date Data Source [id number] 06/25/2019 07:39:00 PM [facility] Name Value Range Interpretation Description Data Sup porting Code Source(s) Document(s ) PT panel - 10.1 s [facility] Platelet poor [facility] plasma by Coagulation assay ID Date Data Source [id number] 06/25/2019 07:39:00 PM EDT [facility] Name Value Range Interpretation Code Description Data Supporting Source(s) Document(s ) NUCLEATED RBCS 0.0 % [facility] (AUTO Hospital DIFF%)DIS ID Date Data Source [id number] 06/25/2019 07:39:00 PM EDT [facility] Value Range Interpretation Description Data Sup porting Code Source(s) Document(s ) Differential AUTOMATED [facility] cell count Hospital method - Blood ID Date Data Source [id number] 06/25/2019 07:39:00 PM EDT [facility] Value Range Interpretation Description Data Sup porting Code Source(s) Document(s ) Immature 0.09 [facility] granulocytes 10*3/uL Hospital [#/volume] in Blood by Automated count ID Date Data Source [id number] 06/[facility] Description Data Sup porting Code Source(s) Document(s ) Basophils 0.07 [facility] [#/volume] in 10*3/uL Hospital Blood by Automated count ID Date Data Source [id number] 06/25/2019 07:39:00 PM EDT [facility] Name Value Range Interpretation Description Data Sup porting Code Source(s) Document(s ) Eosinophils 0.39 [facility] [#/volume] in 10*3/uL Hospital Blood by Automated count ID Date Data Source [id number] 06/25/2019 07:39:00 PM EDT [facility] Name Value Range Interpretation Description Data Sup porting Code Source(s) Document(s ) Monocytes 0.97 [facility] [#/volume] in 10*3/uL Hospital Blood by Automated count ID Date Data Source [id number] 06/25/2019 07:39:00 PM EDT [facility] Value Range Interpretation Description Data Sup porting Code Source(s) Document(s ) Lymphocytes 1.99 [facility] [#/volume] in 10*3/uL Hospital Blood by Automated count ID Date Data Source [id number] 06/25/2019 07:39:00 PM EDT [facility] Value Range Interpretation Description Data Sup porting Code Source(s) Document(s ) Neutrophils 3.17 [facility] [#/volume] in 10*3/uL [facility] Blood by Automated count ID Date Data Source [id number] 06/25/2019 07:39:00 PM EDT [facility] Value Range Interpretation Description Data Sup porting Code Source(s) Document(s ) Nucleated 0.0 % [facility] erythrocytes/10 Hospital 0 leukocytes [Ratio] in Blood by Automated count ID Date Data Source [id number] 06/25/2019 07:39:00 PM EDT [facility] Value Range Interpretation Description Data Sup porting Code Source(s) Document(s ) Immature 1.3 % [facility] granulocytes/10 Hospital 0 leukocytes in Blood by Automated count ID Date Data Source [id number] 06/25/2019 07:39:00 PM EDT [facility] Value Range Interpretation Description Data Sup porting Code Source(s) Document(s ) Basophils/100 1.0 % [facility] leukocytes in Hospital Blood by Automated count ID Date Data Source [id number] 06/25/2019 07:39:00 PM EDT [facility] Value Range Interpretation Description Data Sup porting Code Source(s) Document(s ) Eosinophils/100 5.8 % [facility] leukocytes in Hospital Blood by Automated count ID Date Data Source [id number] 06/25/2019 07:39:00 PM EDT [facility] Name Value Range Interpretation Description Data Sup porting Code Source(s) Document(s ) Monocytes/100 14.5 % [facility] leukocytes in Hospital Blood by Automated count ID Date Data Source [id number] 06/25/2019 07:39:00 PM EDT [facility] Name Value Range Interpretation Description Data Sup porting Code Source(s) Document(s ) Lymphocytes/10 29.8 % [facility] 0 leukocytes Hospital in Blood by Automated count ID Date Data Source [id number] 06/25/2019 07:39:00 PM EDT [facility] Name Value Range Interpretation Description Data Sup porting Code Source(s) Document(s ) Neutrophils/10 47.6 % [facility] 0 leukocytes Hospital in Blood by Automated count ID Date Data Source [id number] 06/25/2019 07:39:00 PM EDT [facility] Name Value Range Interpretation Description Data Sup porting Code Source(s) Document(s ) Platelet mean 10.6 fL [facility] volume Hospital [Entitic volume] in Blood by Automated count ID Date Data Source [id number] 06/25/2019 07:39:00 PM [facility] Value Range Interpretation Description Data Sup porting Code Source(s) Document(s ) Platelets 200 [facility] [#/volume] in 10*3/uL Hospital Blood by Automated count ID Date Data Source [id number] 06/25/2019 07:39:00 PM EDT [facility] Name Value Range Interpretation Description Data Sup porting Code Source(s) Document(s ) Erythrocyte 13.1 % [facility] distribution Hospital width [Ratio] by Automated count ID Date Data Source [id number] 06/25/2019 07:39:00 PM EDT [facility] Name Value Range Interpretation Description Data Sup porting Code Source(s) Document(s ) Erythrocyte mean 34.5 [facility] corpuscular g/dL Hospital hemoglobin concentration [Mass/volume] by Automated count ID Date Data Source [id number] 06/25/2019 07:39:00 PM EDT [facility] Value Range Interpretation Description Data Sup porting Code Source(s) Document(s ) Erythrocyte 29.[address] [facility] corpuscular hemoglobin [Entitic mass] by Automated count ID Date Data Source [id number] 06/25/2019 07:39:00 PM EDT [facility] Value Range Interpretation Description Data Sup porting Code Source(s) Document(s ) Erythrocyte 84.6 fL [facility] Hospital corpuscular volume [Entitic volume] by Automated count ID Date Data Source [id number] 06/25/2019 [facility]39[facility] Interpretation Description Data Sup porting Code Source(s) Document(s ) Hematocrit 42.3 % [facility] [Volume Hospital Fraction] of Blood by Automated count ID Date Data Source [id number] 06/25/2019 07:39:00 PM [facility] Value Range Interpretation Description Data Sup porting Code Source(s) Document(s ) Hemoglobin 14.6 g/dL [facility] [Mass/volume] Hospital in Blood ID Date Data Source [id number] 06/25/2019 07:39:[facility] Value Range Interpretation Description Data Sup porting Code Source(s) Document(s ) Erythrocytes 5.00 [facility] [#/volume] in 10*6/uL Hospital Blood by Automated count ID Date Data Source [id number] 06/25/2019 07:39:[facility] Value Range Interpretation Description Data Sup porting Code Source(s) Document(s ) Leukocytes 6.7 [facility] [#/volume] in 10*3/uL Hospital Blood by Automated count Procedure Social History Code Duration Value Status Description Data Source(s ) Smoking Unknown if ever completed Unknown if ever [facility] smoked smoked Hospital Vital Signs ID Date Data Source UNK Name Value Range Interpretation Code Description Data Source(s) Diastolic blood 72 mm[Hg] 72 mm[Hg] [facility] pressure Hospital Systolic blood 131 mm[Hg] 131 mm[Hg] [facility] pressure Hospital Respiratory rate 20 /min 20 /min [facility] Heart rate 72 /min 72 /min [facility] Body temperature 36.44396 36.35882 [facility] Body temperature 97.9 [degF] 97.9 [degF] [facility] Body mass index 25.0 kg/m2 25.0 kg/m2 [facility] (BMI) [Ratio] Hospital Body weight 157.32 157.32 [lb_av] [facility] [lb_av] Hospital
[2020-07-08] MEDS: CARBAMIDE PEROXIDE 6.5% OTIC 15 ML BOTTLE AU SCH ×2 (15:19→22:11)
[2020-07-08] MEDS: chlordiazePOXIDE HCL 25 MG CAPSULE PO SCH ×2 (18:24→22:09)
[2020-07-08 19:29] LABS: HEMATOCRIT 45.1 % (35.4-49); HEMOGLOBIN 14.7 GM/dL (11.7-16.9); MCH 29.7 pg (25.7-33.7); MCHC 32.5 g/dl (32.0-35.9); MEAN CELL VOLUME 91.4 fl (80-96); MEAN PLT VOLUME 9.1 fl (7.5-11.1); PLATELET COUNT 231 K/MM3 (134-434); RBC 4.94 M/mm3 (4.00-5.60); RDW 14.4 % (11.9-15.9); WHITE BLOOD COUNT 5.6 K/mm3 (4.0-10.0)
[2020-07-08 19:47] LABS: ALBUMIN 4.1 g/dl (3.4-5.0); BILIRUBIN,TOTAL 0.7 mg/dL (0.2-1); CALCIUM 9.2 mg/dL (8.5-10.1); CREATININE 1.3 mg/dL (0.55-1.3); POTASSIUM 3.6 mmol/L (3.5-5.1); TOT PROT 8.2 g/dl (6.4-8.2)
[2020-07-08] MEDS: MELATONIN 5 MG TABLETS PO SCH (22:09)
[2020-07-08] MEDS: THIAMINE HCL 100 MG TABLET (FP) PO SCH (22:09)
[2020-07-09] MEDS: chlordiazePOXIDE HCL 25 MG CAPSULE PO SCH ×4 (05:45→22:34)
[2020-07-09] MEDS: NICOTINE 21 MG/24 HOURS TOPICAL PATCH TD SCH (10:28)
[2020-07-09] MEDS: NICOTINE POLACRILEX 2 MG GUM BUC PRN (10:29)
[2020-07-09] MEDS: CARBAMIDE PEROXIDE 6.5% OTIC 15 ML BOTTLE AU SCH ×2 (10:29→23:47)
[2020-07-09] MEDS: PRENATAL VITAMINS W/ FOLIC ACID TABLET (FP) PO SCH (10:29)
--- NOTE | 2020-07-09 10:42 | CONSULT ---
[facility] Psychiatric Consult - Data Date of interview: 07/09/20 Admission source: Self-referred Identifying data: Mr Mcnamara is a 45 years old single Black male, father of 2 children, unemployed receiving SSI, domiciled seeking detox treatment for alcohol, cocaine and cannabis Substance Abuse History: Reports history of alcohol, crack cocaine and marijuana use. Refer to addiction counselor's summary for further information Medical History: Significant for sickle cell trait, hepatitis C and history of treatment for syphilis. Smokes cigarettes 2 ppd Psychiatric History: Patient is known for multiple previous admissions to this facility. He reports that his first psychiatric contact occured at age 10 when he was admitted to [facility] for auditory hallucinations, impulsivity and erratic behavior. He was diagnosed with Paranoid Schizophrenia and started on psychotropic medications. Reports multiple subsequent psychiatric hospitalizations at various institutions including [facility], [facility], [facility] and other facilities. Reports that he was receiving outpatient treatment up to 2 weeks ago at [facility] and he was prescribed Seroquel 100 mg/day & 300 mg/hs. endorses a history of multiple psychiatric hospitalizations (onset of psychiatric disturbances at age 10 : auditory hallucinations, impulsivity, erratic behaviors). Mr Mcnamara is known to several institutions ([facility], [facility], [facility] and other facilities in [facility]). He indicates that he averages 2-3 psychiatric rehospitalizations on a yearly basis. Has been diagnosed with Schizophrenia, paranoid type. Reportedly patient is non-adherence to OPD care and sporadically uses CPEP settings in time of crisis in order to get medications refills. Reportedly, he has two previous suicide attempts (wrist- cutting in 2016 + trying to jump off a roof in 2017). At present, denies experiencing psychotic symptoms, S/H ideations. However, reports feeling depressed and sleeping poorly Physical/Sexual Abuse/Trauma History: Denies history of abuse as a child or DV relationship as an adult Mental Status Exam - Mental Status Exam Alert and Oriented to: Time, Place, Person Cognitive Function: Fair Patient Appearance: Well Groomed Mood: Depressed Affect: Appropriate Patient Behavior: Cooperative Speech Pattern: Clear Voice Loudness: Normal Thought Process: Intact, Goal Oriented Hallucinations: Denies Suicidal Ideation: Denies Homicidal Ideation: Denies Insight/Judgement: Poor Appetite: Good Muscle strength/Tone: Normal Gait/Station: Normal Psychiatric Findings - Problem List ([place] 1, 2,3) (1) Paranoid schizophrenia Current Visit: No Status: Chronic (2) Substance induced mood disorder Current Visit: No Status: Acute (3) Substance-induced sleep disorder Current Visit: Yes Status: Acute (4) Alcohol dependence with uncomplicated withdrawal Current Visit: Yes Status: Acute (5) Cocaine dependence Current Visit: Yes Status: Acute Qualifiers: Substance use status: uncomplicated Qualified Code(s): F14.20 - Cocaine dependence, uncomplicated Comment: . (6) Cannabis dependence Current Visit: No Status: Acute Comment: . (7) Nicotine dependence Current Visit: No Status: Chronic Qualifiers: Nicotine product type: cigarettes Substance use status: in withdrawal Qualified Code(s): F17.213 - Nicotine dependence, cigarettes, with withdrawal Comment: . (8) Hepatitis C Current Visit: No Status: Chronic (9) Sickle cell trait Current Visit: No Status: Chronic - Initial Treatment Plan Initial Treatment Plan: 1) Resume Seroquel 100 mg daily and 300 mg HS. 2) C ontinue inpatient detoxification
--- NOTE | 2020-07-09 10:55 | PN ---
S CIWA - CIWA Score Nausea/Vomitin-No Nausea/No Vomiting Muscle Tremors: 3 Anxiety: 2 Agitation: 3 Paroxysmal Sweats: 2 Orientation: 0-Oriented Tacttile Disturbances: 0-None Auditory Disturbances: 0-None Visual Disturbances: 0-None Headache: 0-None Present CIWA-Ar Total Score: 10 S Progress Note (SOAP) Subjective: sweats shakes diarrhea interrupted sleep Objective: 07/09/20 10:54 Vital Signs Temperature 97.3 F L 07/09/20 08:28 Pulse Rate 63 07/09/20 08:28 Respiratory Rate 18 07/09/20 08:28 Blood Pressure 117/75 07/09/20 08:28 O2 Sat by Pulse Oximetry (%) 97 07/09/20 05:27 Laboratory Tests 07/08/20 07/08/20 07/08/20 12:00 12:00 12:00 WBC 5.6 RBC 4.94 Hgb 14.7 Hct 45.1 MCV 91.4 MCH 29.7 MCHC 32.5 RDW 14.4 Plt Count 231 MPV 9.1 Sodium 136 Potassium 3.6 Chloride 100 Carbon Dioxide 31 Anion Gap 5 L BUN 19.0 H Creatinine 1.3 Est GFR (CKD-EPI)AfAm 75.31 Est GFR (CKD-EPI)NonAf 64.98 Random Glucose 117 H Calcium 9.2 Total Bilirubin 0.7 AST 67 H ALT 69 H Alkaline Phosphatase 98 Total Protein 8.2 Albumin 4.1 Syphilis Serology Non-reactive labs noted aaox3 ambulating no acute distress Assessment: 07/09/20 10:54 withdrawals Plan: continue detox increase fluids pepto prn
[2020-07-09] MEDS: QUEtiapine FUMARATE 100 MG TABLET (FP) PO SCH (11:58)
[2020-07-09] MEDS: THIAMINE HCL 100 MG TABLET (FP) PO SCH (22:34)
[2020-07-09] MEDS: QUEtiapine FUMARATE 300 MG TABLET PO SCH (22:34)
[2020-07-09] MEDS: MELATONIN 5 MG TABLETS PO SCH (23:47)
[2020-07-10] MEDS: chlordiazePOXIDE HCL 25 MG CAPSULE PO SCH ×4 (05:48→22:39)
[2020-07-10] MEDS: CARBAMIDE PEROXIDE 6.5% OTIC 15 ML BOTTLE AU SCH ×2 (10:01→22:40)
[2020-07-10] MEDS: PRENATAL VITAMINS W/ FOLIC ACID TABLET (FP) PO SCH (10:02)
[2020-07-10] MEDS: NICOTINE 21 MG/24 HOURS TOPICAL PATCH TD SCH (10:02)
[2020-07-10] MEDS: QUEtiapine FUMARATE 100 MG TABLET (FP) PO SCH (10:02)
[2020-07-10] MEDS: NICOTINE POLACRILEX 2 MG GUM BUC PRN (10:02)
--- NOTE | 2020-07-10 10:49 | PN ---
S CIWA - CIWA Score Nausea/Vomitin-No Nausea/No Vomiting Muscle Tremors: 2 Anxiety: 2 Agitation: 2 Paroxysmal Sweats: 2 Orientation: 0-Oriented Tacttile Disturbances: 0-None Auditory Disturbances: 0-None Visual Disturbances: 0-None Headache: 0-None Present CIWA-Ar Total Score: 8 BHS Progress Note (SOAP) Subjective: sweats irritable Objective: 07/10/20 10:49 Vital Signs Temperature 97.5 F L 07/10/20 09:20 Pulse Rate 80 07/10/20 09:20 Respiratory Rate 18 07/10/20 09:20 Blood Pressure 108/71 07/10/20 09:20 O2 Sat by Pulse Oximetry (%) 100 07/10/20 09:20 Laboratory Tests 07/08/20 07/08/20 07/08/20 12:00 12:00 12:00 WBC 5.6 RBC 4.94 Hgb 14.7 Hct 45.1 MCV 91.4 MCH 29.7 MCHC 32.5 RDW 14.4 Plt Count 231 MPV 9.1 Sodium 136 Potassium 3.6 Chloride 100 Carbon Dioxide 31 Anion Gap 5 L BUN 19.0 H Creatinine 1.3 Est GFR (CKD-EPI)AfAm 75.31 Est GFR (CKD-EPI)NonAf 64.98 Random Glucose 117 H Calcium 9.2 Total Bilirubin 0.7 AST 67 H ALT 69 H Alkaline Phosphatase 98 Total Protein 8.2 Albumin 4.1 Syphilis Serology Non-reactive COVID-19 (PETAR) 07/08/20 12:00 WBC RBC Hgb Hct MCV MCH MCHC RDW Plt Count MPV Sodium Potassium Chloride Carbon Dioxide Anion Gap BUN Creatinine Est GFR (CKD-EPI)AfAm Est GFR (CKD-EPI)NonAf Random Glucose Calcium Total Bilirubin AST ALT Alkaline Phosphatase Total Protein Albumin Syphilis Serology COVID-19 (PETAR) Not detected labs noted aaox3 ambulating no acute distress Assessment: 07/10/20 10:49 withdrawals Plan: continue detox
[2020-07-10] MEDS: QUEtiapine FUMARATE 300 MG TABLET PO SCH (22:39)
[2020-07-10] MEDS: THIAMINE HCL 100 MG TABLET (FP) PO SCH (22:39)
[2020-07-10] MEDS: MELATONIN 5 MG TABLETS PO SCH (23:07)
[2020-07-11] MEDS ORDERED: chlordiazePOXIDE HCL 10 MG CAPSULE PO PRN
[2020-07-11] MEDS: chlordiazePOXIDE HCL 10 MG CAPSULE PO SCH ×4 (06:28→22:45)
[2020-07-11] MEDS: NICOTINE 21 MG/24 HOURS TOPICAL PATCH TD SCH (10:33)
[2020-07-11] MEDS: PRENATAL VITAMINS W/ FOLIC ACID TABLET (FP) PO SCH (10:33)
[2020-07-11] MEDS: CARBAMIDE PEROXIDE 6.5% OTIC 15 ML BOTTLE AU SCH ×2 (10:34→22:45)
[2020-07-11] MEDS: QUEtiapine FUMARATE 100 MG TABLET (FP) PO SCH (10:34)
--- NOTE | 2020-07-11 13:03 | PN ---
S CIWA - CIWA Score Nausea/Vomitin-No Nausea/No Vomiting Muscle Tremors: 2 Anxiety: 2 Agitation: 2 Paroxysmal Sweats: 1-Minimal Palms Moist Orientation: 0-Oriented Tacttile Disturbances: 0-None Auditory Disturbances: 0-None Visual Disturbances: 0-None Headache: 0-None Present CIWA-Ar Total Score: 7 BHS Progress Note (SOAP) Subjective: Complaints of sweats, shakes, and anxiety. Objective: 07/11/20 13:01 Vital Signs 07/11/20 07/11/20 07/11/20 05:24 09:25 12:20 Temperature 97.5 F L 98.0 F 97.1 F L Pulse Rate 70 95 H 76 Respiratory 20 19 18 Rate Blood Pressure 120/71 116/78 124/76 O2 Sat by Pulse 98 98 98 Oximetry (%) Laboratory Last Values WBC 5.6 K/mm3 (4.0-10.0) 07/08/20 12:00 RBC 4.94 M/mm3 (4.00-5.60) 07/08/20 12:00 Hgb 14.7 GM/dL (11.7-16.9) 07/08/20 12:00 Hct 45.1 % (35.4-49) 07/08/20 12:00 MCV 91.4 fl (80-96) 07/08/20 12:00 MCH 29.7 pg (25.7-33.7) 07/08/20 12:00 MCHC 32.5 g/dl (32.0-35.9) 07/08/20 12:00 RDW 14.4 % (11.9-15.9) 07/08/20 12:00 Plt Count 231 K/MM3 (134-434) 07/08/20 12:00 MPV 9.1 fl (7.5-11.1) 07/08/20 12:00 Sodium 136 mmol/L (136-145) 07/08/20 12:00 Potassium 3.6 mmol/L (3.5-5.1) 07/08/20 12:00 Chloride 100 mmol/L (98-107) 07/08/20 12:00 Carbon Dioxide 31 mmol/L (21-32) 07/08/20 12:00 Anion Gap 5 MMOL/L (8-16) L 07/08/20 12:00 BUN 19.0 mg/dL (7-18) H 07/08/20 12:00 Creatinine 1.3 mg/dL (0.55-1.3) 07/08/20 12:00 Est GFR (CKD-EPI)AfAm 75.31 07/08/20 12:00 Est GFR (CKD-EPI)NonAf 64.98 07/08/20 12:00 Random Glucose 117 mg/dL (74-106) H 07/08/20 12:00 Calcium 9.2 mg/dL (8.5-10.1) 07/08/20 12:00 Total Bilirubin 0.7 mg/dL (0.2-1) 07/08/20 12:00 AST 67 U/L (15-37) H 07/08/20 12:00 ALT 69 U/L (13-61) H 07/08/20 12:00 Alkaline Phosphatase 98 U/L (45-117) 07/08/20 12:00 Total Protein 8.2 g/dl (6.4-8.2) 07/08/20 12:00 Albumin 4.1 g/dl (3.4-5.0) 07/08/20 12:00 Syphilis Serology Non-reactive (NONREACTIVE) 07/08/20 12:00 COVID-19 (PETAR) Not detected (Not Detected) 07/08/20 12:00 Labs noted. Assessment: 07/11/20 13:02 Alert and oriented x 3, in no acute respiratory distress. Full ROM, ambulating in unit without assistance. Skin warm to touch without any lesions. Withdrawal symptoms. Plan: Continue detox protocol. Ensure added per patient's request.
[2020-07-11] MEDS: QUEtiapine FUMARATE 300 MG TABLET PO SCH (22:45)
[2020-07-11] MEDS: MELATONIN 5 MG TABLETS PO SCH (22:45)
[2020-07-11] MEDS: THIAMINE HCL 100 MG TABLET (FP) PO SCH (22:45)
[2020-07-12] MEDS: chlordiazePOXIDE HCL 10 MG CAPSULE PO SCH ×2 (05:28→18:05)
[2020-07-12] MEDS: CARBAMIDE PEROXIDE 6.5% OTIC 15 ML BOTTLE AU SCH ×2 (10:35→22:34)
[2020-07-12] MEDS: NICOTINE POLACRILEX 2 MG GUM BUC PRN (10:36)
[2020-07-12] MEDS: PRENATAL VITAMINS W/ FOLIC ACID TABLET (FP) PO SCH (10:36)
[2020-07-12] MEDS: QUEtiapine FUMARATE 100 MG TABLET (FP) PO SCH (10:36)
[2020-07-12] MEDS: NICOTINE 21 MG/24 HOURS TOPICAL PATCH TD SCH (10:36)
--- NOTE | 2020-07-12 16:03 | PN ---
S CIWA - CIWA Score Nausea/Vomitin-No Nausea/No Vomiting Muscle Tremors: None Anxiety: 2 Agitation: 2 Paroxysmal Sweats: No Perspiration Orientation: 0-Oriented Tacttile Disturbances: 0-None Auditory Disturbances: 0-None Visual Disturbances: 0-None Headache: 0-None Present CIWA-Ar Total Score: 4 BHS Progress Note (SOAP) Subjective: Feels ok Objective: 07/12/20 16:01 Last Vital Signs Temp Pulse Resp BP Pulse Ox 96.0 F L 71 18 129/73 99 07/12/20 12:35 07/12/20 12:35 07/12/20 12:35 07/12/20 12:35 07/12/20 12:35 Laboratory Tests 07/08/20 07/08/20 07/08/20 12:00 12:00 12:00 WBC 5.6 RBC 4.94 Hgb 14.7 Hct 45.1 MCV 91.4 MCH 29.7 MCHC 32.5 RDW 14.4 Plt Count 231 MPV 9.1 Sodium 136 Potassium 3.6 Chloride 100 Carbon Dioxide 31 Anion Gap 5 L BUN 19.0 H Creatinine 1.3 Est GFR (CKD-EPI)AfAm 75.31 Est GFR (CKD-EPI)NonAf 64.98 Random Glucose 117 H Calcium 9.2 Total Bilirubin 0.7 AST 67 H ALT 69 H Alkaline Phosphatase 98 Total Protein 8.2 Albumin 4.1 Syphilis Serology Non-reactive COVID-19 (PETAR) 07/08/20 12:00 WBC RBC Hgb Hct MCV MCH MCHC RDW Plt Count MPV Sodium Potassium Chloride Carbon Dioxide Anion Gap BUN Creatinine Est GFR (CKD-EPI)AfAm Est GFR (CKD-EPI)NonAf Random Glucose Calcium Total Bilirubin AST ALT Alkaline Phosphatase Total Protein Albumin Syphilis Serology COVID-19 (PETAR) Not detected Labs reviewed: glucose 117, AST/ALT 67/69 Assessment: 07/12/20 16:02 Withdrawal sxs Noted with hyperglycemia and transaminitis Plan: Continue detox Encourage PO water intake Patient scheduled for discharge tomorrow Hyperglycemia: denies DM, most likely withdrawal related, follow up with PCP for monitoring Transaminitis: most likely alcohol related, follow up with PCP for monitoring
[2020-07-12] MEDS: THIAMINE HCL 100 MG TABLET (FP) PO SCH (22:34)
[2020-07-12] MEDS: QUEtiapine FUMARATE 300 MG TABLET PO SCH (22:34)
[2020-07-12] MEDS: MELATONIN 5 MG TABLETS PO SCH (22:34)
[2020-07-13] MEDS ORDERED: chlordiazePOXIDE HCL 10 MG CAPSULE PO ONE (05:00)
[2020-07-13 09:05] VITALS: BP 118/77; PULSE 65; TEMP 97.3
--- NOTE | 2020-07-13 09:09 | DS ---
[facility] Detox Discharge Summary Admission Date: 07/08/20 Discharge Date: 07/13/20 - History Present History: Alcohol Dependence, Cannabis Dependence, Cocaine Dependence - Physical Exam Results Vital Signs: Vital Signs Temperature 97.3 F L 07/13/20 08:39 Pulse Rate 65 07/13/20 08:39 Respiratory Rate 16 07/13/20 08:39 Blood Pressure 118/77 07/13/20 08:39 O2 Sat by Pulse Oximetry (%) 98 07/13/20 08:39 Pertinent Admission Physical Exam Findings: Vital Signs Temperature 97.3 F L 07/13/20 08:39 Pulse Rate 65 07/13/20 08:39 Respiratory Rate 16 07/13/20 08:39 Blood Pressure 118/77 07/13/20 08:39 O2 Sat by Pulse Oximetry (%) 98 07/13/20 08:39 Laboratory Tests 07/08/20 07/08/20 07/08/20 12:00 12:00 12:00 WBC 5.6 RBC 4.94 Hgb 14.7 Hct 45.1 MCV 91.4 MCH 29.7 MCHC 32.5 RDW 14.4 Plt Count 231 MPV 9.1 Sodium 136 Potassium 3.6 Chloride 100 Carbon Dioxide 31 Anion Gap 5 L BUN 19.0 H Creatinine 1.3 Est GFR (CKD-EPI)AfAm 75.31 Est GFR (CKD-EPI)NonAf 64.98 Random Glucose 117 H Calcium 9.2 Total Bilirubin 0.7 AST 67 H ALT 69 H Alkaline Phosphatase 98 Total Protein 8.2 Albumin 4.1 Syphilis Serology Non-reactive COVID-19 (PETAR) 07/08/20 12:00 WBC RBC Hgb Hct MCV MCH MCHC RDW Plt Count MPV Sodium Potassium Chloride Carbon Dioxide Anion Gap BUN Creatinine Est GFR (CKD-EPI)AfAm Est GFR (CKD-EPI)NonAf Random Glucose Calcium Total Bilirubin AST ALT Alkaline Phosphatase Total Protein Albumin Syphilis Serology COVID-19 (PETAR) Not detected labs noted aaox3 ambulating no acute distress lungs CTA - Treatment Hospital Course: Detox Protocol Followed, Detoxed Safely, Responded well, Discharged Condition Good, Rehab Referral Accepted - Medication Discharge Medications: Ambulatory Orders Quetiapine Fumarate [Seroquel -] 100 mg PO DAILY 01/09/18 Quetiapine Fumarate [Seroquel -] 300 mg PO HS 03/20/18 Quetiapine Fumarate [Seroquel -] 100 mg PO DAILY #30 tablet 03/13/20 Quetiapine Fumarate [Seroquel -] 300 mg PO HS #30 tab 03/13/20 - Diagnosis (1) Alcohol dependence with uncomplicated withdrawal Current Visit: Yes Status: Chronic (2) Cocaine dependence Current Visit: Yes Status: Chronic Qualifiers: Substance use status: uncomplicated Qualified Code(s): F14.20 - Cocaine d ependence, uncomplicated (3) Substance-induced sleep disorder Current Visit: Yes Status: Acute (4) Hearing loss Current Visit: Yes Status: Chronic (5) Schizophrenia Current Visit: Yes Status: Chronic Qualifiers: Schizophrenia type: paranoid schizophrenia Qualified Code(s): F20.0 - Paranoid schizophrenia (6) Cannabis dependence Current Visit: No Status: Acute (7) Substance induced mood disorder Current Visit: No Status: Acute (8) Depression Current Visit: No Status: Chronic Qualifiers: Major depression episode severity: unspecified (9) Hepatitis C Current Visit: No Status: Chronic (10) Insomnia Current Visit: No Status: Chronic Qualifiers: Insomnia type: unspecified Qualified Code(s): G47.00 - Insomnia, unspecified (11) Nicotine dependence Current Visit: Yes Status: Chronic Qualifiers: Nicotine product type: cigarettes Substance use status: uncomplicated Qualified Code(s): F17.210 - Nicotine dependence, cigarettes, uncomplicated (12) Non-compliance Current Visit: No Status: Chronic (13) Paranoid schizophrenia Current Visit: Yes Status: Chronic (14) Sickle cell trait Current Visit: No Status: Chronic - AMA Did Patient Leave Against Medical Advice: No
--- NOTE | 2020-07-13 09:52 | PN ---
[facility] Progress Note Note: Patient is discharged today. Scripts for 30 days supply of medications(Seroquel 100 mg/day & 300 mg/hs) are electronically transmitted to [facility], [address] [place] [address]
== END 2020-07-13 09:24 | disposition home or self-care (01) | DRG 774 ==
LOC: YASAS 10:21 → Y6N 11:02
PROVIDERS: ADMIT Allergy & Immunology; ATTEND Allergy & Immunology
PROC: HZ2ZZZZ Detoxification Services for Substance Abuse Treatment (ICD-10-PCS; principal; 2020-07-08)
DX: F10.230 Alcohol dependence with withdrawal, uncomplicated (principal); F14.20 Cocaine dependence, uncomplicated; F12.20 Cannabis dependence, uncomplicated; F17.210 Nicotine dependence, cigarettes, uncomplicated; F19.282 Other psychoactive substance dependence with psychoactive substance-induced sleep disorder; F19.24 Other psychoactive substance dependence with psychoactive substance-induced mood disorder; F20.0 Paranoid schizophrenia; F32.9 Major depressive disorder, single episode, unspecified; D57.3 Sickle-cell trait; B18.2 Chronic viral hepatitis C; H91.90 Unspecified hearing loss, unspecified ear; R73.9 Hyperglycemia, unspecified; R74.8 Abnormal levels of other serum enzymes; Z91.5 Personal history of self-harm; Z91.19 Patient's noncompliance with other medical treatment and regimen; Z56.0 Unemployment, unspecified
CPT/HCPCS: 36415; 80053; 85027; 86780; U0003

== ENCOUNTER 2020-10-19 11:48 | Inpatient (IN) | payer BC ==
[2020-10-19 14:09] VITALS: BMI 25.0
[2020-10-19] MEDS ORDERED: MENTHOL/PHENOL 1 EACH UD MM PRN (14:11)
[2020-10-19] MEDS ORDERED: IBUPROFEN 400 MG TABLET (FP) PO PRN (14:11)
[2020-10-19] MEDS ORDERED: METHOCARBAMOL 500 MG TABLET PO PRN (14:11)
[2020-10-19] MEDS ORDERED: BISMUTH SUBSALICYLATE 262 MG/15 ML BTL PO PRN (14:11)
[2020-10-19] MEDS ORDERED: MAGNESIUM HYDROX 2400MG/30ML ORAL SUSPENSION 30 ML CUP PO PRN (14:11)
[2020-10-19] MEDS ORDERED: ACETAMINOPHEN 325 MG TABLET (FP) PO PRN ×2 (14:11)
[2020-10-19] MEDS ORDERED: NICOTINE POLACRILEX 2 MG GUM BUC PRN (14:11)
[2020-10-19] MEDS ORDERED: MAGNESIUM CITRATE 300 ML BOTTLE PO PRN (14:11)
[2020-10-19] MEDS ORDERED: ONDANSETRON *ODT* 4 MG TABLET SL PRN (14:11)
[2020-10-19] MEDS ORDERED: MAG HYDROX/AL HYDROX/SIMETH 30 ML UNIT-DOSE CUP PO PRN (14:11)
[2020-10-19] MEDS ORDERED: chlordiazePOXIDE HCL 25 MG CAPSULE PO PRN (14:11)
[2020-10-19] MEDS: hydrOXYzine PAMOATE 25 MG CAPSULE (FP) PO SCH ×2 (17:22→22:13)
[2020-10-19] MEDS: chlordiazePOXIDE HCL 25 MG CAPSULE PO SCH ×2 (17:22→22:12)
[2020-10-19 19:09] LABS: HEMOGLOBIN 15.3 GM/dL (11.7-16.9); MCH 29.6 pg (25.7-33.7); MCHC 32.5 g/dl (32.0-35.9); MEAN CELL VOLUME 91.1 fl (80-96); MEAN PLT VOLUME 9.2 fl (7.5-11.1); PLATELET COUNT 269 K/MM3 (134-434); RBC 5.16 M/mm3 (4.00-5.60); RDW 14.8 % (11.9-15.9); WHITE BLOOD COUNT 4.7 K/mm3 (4.0-10.0)
[2020-10-19 19:22] LABS: ALBUMIN 3.8 g/dl (3.4-5.0); BLOOD UREA NITROGEN 20.7 mg/dL (7-18)
[2020-10-19 19:24] LABS: BILIRUBIN,TOTAL 0.1 mg/dL (0.2-1); CALCIUM 9.4 mg/dL (8.5-10.1); TOT PROT 7.6 g/dl (6.4-8.2)
[2020-10-19 19:25] LABS: CREATININE 1.2 mg/dL (0.55-1.3)
[2020-10-19] MEDS: MELATONIN 5 MG TABLETS PO SCH (22:13)
[2020-10-19] MEDS: THIAMINE HCL 100 MG TABLET (FP) PO SCH (22:13)
[2020-10-20] MEDS: hydrOXYzine PAMOATE 25 MG CAPSULE (FP) PO SCH ×5 (05:38→22:24)
[2020-10-20] MEDS: chlordiazePOXIDE HCL 25 MG CAPSULE PO SCH ×4 (05:38→22:24)
[2020-10-20] MEDS: PRENATAL VITAMINS W/ FOLIC ACID TABLET (FP) PO SCH (10:22)
[2020-10-20] MEDS: NICOTINE 21 MG/24 HOURS TOPICAL PATCH TD SCH (10:23)
[2020-10-20] MEDS: QUEtiapine FUMARATE 100 MG TABLET (FP) PO SCH (14:39)
[2020-10-20] MEDS: QUEtiapine FUMARATE 200 MG TABLET PO SCH (22:24)
[2020-10-20] MEDS: THIAMINE HCL 100 MG TABLET (FP) PO SCH (22:24)
[2020-10-20] MEDS: MELATONIN 5 MG TABLETS PO SCH (22:24)
[2020-10-21] MEDS: hydrOXYzine PAMOATE 25 MG CAPSULE (FP) PO SCH ×5 (06:07→22:11)
[2020-10-21] MEDS: chlordiazePOXIDE HCL 25 MG CAPSULE PO SCH ×4 (06:07→22:12)
[2020-10-21] MEDS: QUEtiapine FUMARATE 100 MG TABLET (FP) PO SCH (10:14)
[2020-10-21] MEDS: PRENATAL VITAMINS W/ FOLIC ACID TABLET (FP) PO SCH (10:14)
[2020-10-21] MEDS: NICOTINE 21 MG/24 HOURS TOPICAL PATCH TD SCH (10:16)
[2020-10-21] MEDS: MELATONIN 5 MG TABLETS PO SCH (22:11)
[2020-10-21] MEDS: THIAMINE HCL 100 MG TABLET (FP) PO SCH (22:11)
[2020-10-21] MEDS: QUEtiapine FUMARATE 200 MG TABLET PO SCH (22:11)
[2020-10-22] MEDS ORDERED: chlordiazePOXIDE HCL 10 MG CAPSULE PO PRN
[2020-10-22] MEDS: hydrOXYzine PAMOATE 25 MG CAPSULE (FP) PO SCH ×2 (05:33→10:25)
[2020-10-22] MEDS: chlordiazePOXIDE HCL 10 MG CAPSULE PO SCH ×2 (05:33→10:25)
[2020-10-22 09:42] VITALS: BP 125/79; PULSE 68; TEMP 97.1
[2020-10-22] MEDS: PRENATAL VITAMINS W/ FOLIC ACID TABLET (FP) PO SCH (10:24)
[2020-10-22] MEDS: NICOTINE 21 MG/24 HOURS TOPICAL PATCH TD SCH (10:24)
[2020-10-22] MEDS: QUEtiapine FUMARATE 100 MG TABLET (FP) PO SCH (10:25)
[2020-10-22] MEDS ORDERED: MASKS NR ONE (10:38)
[2020-10-23] MEDS ORDERED: chlordiazePOXIDE HCL 10 MG CAPSULE PO SCH (05:00)
[2020-10-24] MEDS ORDERED: chlordiazePOXIDE HCL 10 MG CAPSULE PO ONE (05:00)
== END 2020-10-22 10:35 | disposition home or self-care (01) | DRG 774 ==
LOC: YASAS 11:48 → Y6N 14:37 → Y3N 14:51
PROVIDERS: ADMIT Allergy & Immunology; ATTEND Allergy & Immunology
PROC: HZ2ZZZZ Detoxification Services for Substance Abuse Treatment (ICD-10-PCS; principal; 2020-10-19)
DX: F10.230 Alcohol dependence with withdrawal, uncomplicated (principal); F14.20 Cocaine dependence, uncomplicated; F12.20 Cannabis dependence, uncomplicated; F17.210 Nicotine dependence, cigarettes, uncomplicated; F19.24 Other psychoactive substance dependence with psychoactive substance-induced mood disorder; F20.0 Paranoid schizophrenia; B18.2 Chronic viral hepatitis C; R74.01 Elevation of levels of liver transaminase levels; D57.3 Sickle-cell trait; G47.00 Insomnia, unspecified; Z91.19 Patient's noncompliance with other medical treatment and regimen; Z86.19 Personal history of other infectious and parasitic diseases
CPT/HCPCS: 36415; 80053; 85027; 86780; C9803; U0003

== ENCOUNTER 2021-03-15 12:31 | Inpatient (IN) | payer BC ==
[2021-03-15 15:46] VITALS: BMI 23.5
[2021-03-15] MEDS ORDERED: chlordiazePOXIDE HCL 25 MG CAPSULE PO PRN (16:18)
[2021-03-15] MEDS ORDERED: ACETAMINOPHEN 325 MG TABLET (FP) PO PRN ×2 (16:18)
[2021-03-15] MEDS ORDERED: METHOCARBAMOL 500 MG TABLET PO PRN (16:18)
[2021-03-15] MEDS ORDERED: ONDANSETRON *ODT* 4 MG TABLET SL PRN (16:18)
[2021-03-15] MEDS ORDERED: MAG HYDROX/AL HYDROX/SIMETH 30 ML UNIT-DOSE CUP PO PRN (16:18)
[2021-03-15] MEDS ORDERED: BISMUTH SUBSALICYLATE 524 MG/30 ML PO PRN (16:18)
[2021-03-15] MEDS ORDERED: NICOTINE POLACRILEX 2 MG GUM BUC PRN (16:18)
[2021-03-15] MEDS ORDERED: MAGNESIUM CITRATE 300 ML BOTTLE PO PRN (16:18)
[2021-03-15] MEDS ORDERED: MAGNESIUM HYDROX 2400MG/30ML ORAL SUSPENSION 30 ML CUP PO PRN (16:18)
[2021-03-15] MEDS ORDERED: MENTHOL/PHENOL 1 EACH UD MM PRN (16:18)
[2021-03-15] MEDS ORDERED: chlordiazePOXIDE HCL 25 MG CAPSULE PO SCH (17:00)
[2021-03-15] MEDS ORDERED: hydrOXYzine PAMOATE 25 MG CAPSULE (FP) PO SCH (18:00)
[2021-03-15] MEDS: NICOTINE 21 MG/24 HOURS TOPICAL PATCH TD SCH (18:20)
[2021-03-15] MEDS ORDERED: diazePAM 5 MG TABLET PO ONE (18:39)
[2021-03-15] MEDS ORDERED: diazePAM 5 MG TABLET PO PRN (18:39)
[2021-03-15] MEDS: THIAMINE HCL 100 MG TABLET (FP) PO SCH (22:30)
[2021-03-15] MEDS: diazePAM 5 MG TABLET PO SCH (22:30)
[2021-03-15] MEDS: MELATONIN 5 MG TABLETS PO SCH (22:30)
[2021-03-16] MEDS: diazePAM 5 MG TABLET PO SCH ×4 (05:11→22:29)
[2021-03-16] MEDS: PRENATAL VITAMINS W/ FOLIC ACID TABLET (FP) PO SCH (10:27)
[2021-03-16] MEDS: NICOTINE 21 MG/24 HOURS TOPICAL PATCH TD SCH (10:27)
[2021-03-16 10:28] LABS: HEMATOCRIT 42.2 % (35.4-49); HEMOGLOBIN 13.7 GM/dL (11.7-16.9); MCH 30.1 pg (25.7-33.7); MCHC 32.5 g/dl (32.0-35.9); MEAN CELL VOLUME 92.8 fl (80-96); MEAN PLT VOLUME 9.4 fl (7.5-11.1); PLATELET COUNT 211 K/MM3 (134-434); RBC 4.55 M/mm3 (4.00-5.60); RDW 13.8 % (11.9-15.9); WHITE BLOOD COUNT 4.6 K/mm3 (4.0-10.0)
[2021-03-16 10:47] LABS: ALBUMIN 2.9 g/dl (3.4-5.0); BLOOD UREA NITROGEN 22.9 mg/dL (7-18); CALCIUM 8.6 mg/dL (8.5-10.1)
[2021-03-16 10:52] LABS: BILIRUBIN,TOTAL 0.2 mg/dL (0.2-1); TOT PROT 6.1 g/dl (6.4-8.2)
[2021-03-16] MEDS: QUEtiapine FUMARATE 100 MG TABLET (FP) PO SCH (22:29)
[2021-03-16] MEDS: THIAMINE HCL 100 MG TABLET (FP) PO SCH (22:29)
[2021-03-16] MEDS: MELATONIN 5 MG TABLETS PO SCH (22:29)
[2021-03-17] MEDS ORDERED: chlordiazePOXIDE HCL 25 MG CAPSULE PO SCH (05:00)
[2021-03-17] MEDS: diazePAM 5 MG TABLET PO SCH ×3 (05:19→22:13)
[2021-03-17] MEDS: QUEtiapine FUMARATE 100 MG TABLET (FP) PO SCH (09:03)
[2021-03-17] MEDS: NICOTINE 21 MG/24 HOURS TOPICAL PATCH TD SCH (09:03)
[2021-03-17] MEDS: PRENATAL VITAMINS W/ FOLIC ACID TABLET (FP) PO SCH (09:03)
[2021-03-17] MEDS: IBUPROFEN 400 MG TABLET (FP) PO PRN (10:15)
[2021-03-17] MEDS: MELATONIN 5 MG TABLETS PO SCH (22:12)
[2021-03-17] MEDS: THIAMINE HCL 100 MG TABLET (FP) PO SCH (22:12)
[2021-03-17] MEDS: QUEtiapine FUMARATE 200 MG TABLET PO SCH (22:12)
[2021-03-18] MEDS ORDERED: chlordiazePOXIDE HCL 10 MG CAPSULE PO PRN
[2021-03-18] MEDS ORDERED: chlordiazePOXIDE HCL 10 MG CAPSULE PO SCH (05:00)
[2021-03-18] MEDS: diazePAM 5 MG TABLET PO SCH ×2 (05:21→17:33)
[2021-03-18] MEDS: IBUPROFEN 400 MG TABLET (FP) PO PRN (08:25)
[2021-03-18 10:07] LABS: SARS-CoV-2 NAA Not Detected (Not Detected)
[2021-03-18] MEDS: QUEtiapine FUMARATE 100 MG TABLET (FP) PO SCH (10:24)
[2021-03-18] MEDS: PRENATAL VITAMINS W/ FOLIC ACID TABLET (FP) PO SCH (10:24)
[2021-03-18] MEDS: NICOTINE 21 MG/24 HOURS TOPICAL PATCH TD SCH (10:24)
[2021-03-18] MEDS: QUEtiapine FUMARATE 200 MG TABLET PO SCH (22:26)
[2021-03-18] MEDS: THIAMINE HCL 100 MG TABLET (FP) PO SCH (22:26)
[2021-03-18] MEDS: MELATONIN 5 MG TABLETS PO SCH (22:26)
[2021-03-19] MEDS ORDERED: chlordiazePOXIDE HCL 10 MG CAPSULE PO SCH (05:00)
[2021-03-19] MEDS ORDERED: diazePAM 5 MG TABLET PO ONE (06:00)
[2021-03-19 09:14] VITALS: BP 108/69; PULSE 68; TEMP 96.9
[2021-03-19] MEDS: PRENATAL VITAMINS W/ FOLIC ACID TABLET (FP) PO SCH (09:54)
[2021-03-19] MEDS: QUEtiapine FUMARATE 100 MG TABLET (FP) PO SCH (09:54)
[2021-03-19] MEDS: NICOTINE 21 MG/24 HOURS TOPICAL PATCH TD SCH (09:55)
[2021-03-20] MEDS ORDERED: chlordiazePOXIDE HCL 10 MG CAPSULE PO ONE (05:00)
== END 2021-03-19 11:15 | disposition home or self-care (01) | DRG 774 ==
LOC: YASAS 12:31 → Y3N 17:10
PROVIDERS: ADMIT Allergy & Immunology; ATTEND Allergy & Immunology
PROC: HZ2ZZZZ Detoxification Services for Substance Abuse Treatment (ICD-10-PCS; principal; 2021-03-15)
DX: F10.230 Alcohol dependence with withdrawal, uncomplicated (principal); F14.20 Cocaine dependence, uncomplicated; F17.210 Nicotine dependence, cigarettes, uncomplicated; F20.0 Paranoid schizophrenia; B18.2 Chronic viral hepatitis C; D64.9 Anemia, unspecified; D57.3 Sickle-cell trait; R63.4 Abnormal weight loss; Z68.23 Body mass index [BMI] 23.0-23.9, adult; Z91.5 Personal history of self-harm; Z91.19 Patient's noncompliance with other medical treatment and regimen
CPT/HCPCS: 36415; 80053; 85027; 86780; C9803; U0003; U0005

== ENCOUNTER 2022-01-03 12:44 | Inpatient (IN) | payer BC ==
[2022-01-03] MEDS ORDERED: chlordiazePOXIDE HCL 25 MG CAPSULE PO PRN (13:36)
[2022-01-03] MEDS ORDERED: ACETAMINOPHEN 325 MG TABLET (FP) PO PRN ×2 (13:36)
[2022-01-03] MEDS ORDERED: NICOTINE 10 MG CARTRIDGE (INHALER) IH PRN (13:36)
[2022-01-03] MEDS ORDERED: LOPERAMIDE HCL 2 MG CAPSULE PO PRN (13:36)
[2022-01-03] MEDS ORDERED: ONDANSETRON *ODT* 4 MG TABLET SL PRN (13:36)
[2022-01-03] MEDS ORDERED: MAG HYDROX/AL HYDROX/SIMETH 30 ML UNIT-DOSE CUP PO PRN (13:36)
[2022-01-03] MEDS ORDERED: MENTHOL/PHENOL 1 EACH UD MM PRN (13:36)
[2022-01-03] MEDS ORDERED: MAGNESIUM CITRATE 300 ML BOTTLE PO PRN (13:36)
[2022-01-03] MEDS ORDERED: IBUPROFEN 400 MG TABLET (FP) PO PRN (13:36)
[2022-01-03] MEDS ORDERED: BISMUTH SUBSALICYLATE 262 MG/15 ML BTL PO PRN (13:36)
[2022-01-03] MEDS ORDERED: MAGNESIUM HYDROX 2400MG/30ML ORAL SUSPENSION 30 ML CUP PO PRN (13:36)
[2022-01-03 14:19] VITALS: BMI 21.7
[2022-01-03] MEDS ORDERED: hydrOXYzine PAMOATE 25 MG CAPSULE (FP) PO ONE (14:52)
[2022-01-03] MEDS ORDERED: chlordiazePOXIDE HCL 25 MG CAPSULE ONE (14:52)
[2022-01-03] MEDS: hydrOXYzine PAMOATE 25 MG CAPSULE (FP) PO SCH ×3 (14:57→22:17)
[2022-01-03] MEDS: chlordiazePOXIDE HCL 25 MG CAPSULE PO SCH ×2 (18:17→22:18)
[2022-01-03 18:54] LABS: HIV INTERPRETATION NEGATIVE (NEGATIVE)
[2022-01-03] MEDS: MELATONIN 5 MG TABLETS PO SCH (22:17)
[2022-01-03] MEDS: THIAMINE HCL 100 MG TABLET (FP) PO SCH (22:17)
[2022-01-04] MEDS: hydrOXYzine PAMOATE 25 MG CAPSULE (FP) PO SCH ×5 (05:53→22:29)
[2022-01-04] MEDS: chlordiazePOXIDE HCL 25 MG CAPSULE PO SCH ×4 (05:53→22:30)
[2022-01-04 10:18] LABS: HEMATOCRIT 43.5 % (35.4-49); HEMOGLOBIN 14.4 GM/dL (11.7-16.9); MCH 28.9 pg (25.7-33.7); MEAN CELL VOLUME 87.4 fl (80-96); MEAN PLT VOLUME 8.9 fl (7.5-11.1); PLATELET COUNT 221 10^3/uL (134-434); RBC 4.98 M/mm3 (4.00-5.60); RDW 14.9 % (11.9-15.9); WHITE BLOOD COUNT 3.8 K/mm3 (4.0-10.0)
[2022-01-04 10:28] LABS: ALBUMIN 3.7 g/dl (3.4-5.0); BLOOD UREA NITROGEN 21.5 mg/dL (7-18)
[2022-01-04 10:31] LABS: CREATININE 1.2 mg/dL (0.55-1.3)
[2022-01-04 10:33] LABS: BILIRUBIN,TOTAL 0.5 mg/dL (0.2-1); TOT PROT 7.5 g/dl (6.4-8.2)
[2022-01-04] MEDS: PRENATAL VITAMINS W/ FOLIC ACID TABLET (FP) PO SCH (10:41)
[2022-01-04] MEDS: QUEtiapine FUMARATE 100 MG TABLET (FP) PO SCH (22:29)
[2022-01-04] MEDS: THIAMINE HCL 100 MG TABLET (FP) PO SCH (22:29)
[2022-01-04] MEDS: MELATONIN 5 MG TABLETS PO SCH (22:29)
[2022-01-05] MEDS: hydrOXYzine PAMOATE 25 MG CAPSULE (FP) PO SCH ×5 (06:05→22:53)
[2022-01-05] MEDS: chlordiazePOXIDE HCL 25 MG CAPSULE PO SCH ×4 (06:05→22:52)
[2022-01-05] MEDS: PRENATAL VITAMINS W/ FOLIC ACID TABLET (FP) PO SCH (10:38)
[2022-01-05] MEDS: METHOCARBAMOL 500 MG TABLET PO PRN (10:39)
[2022-01-05 11:09] LABS: SARS-CoV-2 NAA Not Detected (Not Detected)
[2022-01-05] MEDS: MELATONIN 5 MG TABLETS PO SCH (22:52)
[2022-01-05] MEDS: THIAMINE HCL 100 MG TABLET (FP) PO SCH (22:53)
[2022-01-05] MEDS: QUEtiapine FUMARATE 100 MG TABLET (FP) PO SCH (22:53)
[2022-01-06] MEDS ORDERED: chlordiazePOXIDE HCL 10 MG CAPSULE PO PRN
[2022-01-06] MEDS: hydrOXYzine PAMOATE 25 MG CAPSULE (FP) PO SCH ×4 (06:15→18:48)
[2022-01-06] MEDS: chlordiazePOXIDE HCL 10 MG CAPSULE PO SCH ×4 (06:16→22:20)
[2022-01-06] MEDS: PRENATAL VITAMINS W/ FOLIC ACID TABLET (FP) PO SCH (11:19)
[2022-01-06] MEDS: METHOCARBAMOL 500 MG TABLET PO PRN (11:19)
[2022-01-07] MEDS: MELATONIN 5 MG TABLETS PO SCH ×2 (00:21→22:57)
[2022-01-07] MEDS: THIAMINE HCL 100 MG TABLET (FP) PO SCH ×2 (00:21→22:57)
[2022-01-07] MEDS: hydrOXYzine PAMOATE 25 MG CAPSULE (FP) PO SCH ×6 (00:21→22:57)
[2022-01-07] MEDS: QUEtiapine FUMARATE 100 MG TABLET (FP) PO SCH (00:21)
[2022-01-07] MEDS: chlordiazePOXIDE HCL 10 MG CAPSULE PO SCH ×2 (06:02→18:23)
[2022-01-07] MEDS: PRENATAL VITAMINS W/ FOLIC ACID TABLET (FP) PO SCH (10:06)
[2022-01-07] MEDS: METHOCARBAMOL 500 MG TABLET PO PRN (10:07)
[2022-01-07] MEDS ORDERED: QUEtiapine FUMARATE 300 MG TABLET PO SCH (22:00)
[2022-01-08] MEDS ORDERED: chlordiazePOXIDE HCL 10 MG CAPSULE PO ONE (05:00)
[2022-01-08] MEDS: hydrOXYzine PAMOATE 25 MG CAPSULE (FP) PO SCH (07:05)
[2022-01-08 07:55] VITALS: PULSE 70
[2022-01-08 09:19] VITALS: BP 103/61; TEMP 98.1
== END 2022-01-08 09:52 | disposition home or self-care (01) | DRG 774 ==
LOC: YASAS 12:44 → Y6N 14:48
PROVIDERS: ADMIT Allergy & Immunology; ATTEND Allergy & Immunology
PROC: HZ2ZZZZ Detoxification Services for Substance Abuse Treatment (ICD-10-PCS; principal; 2022-01-03)
DX: F10.230 Alcohol dependence with withdrawal, uncomplicated (principal); F14.20 Cocaine dependence, uncomplicated; F12.20 Cannabis dependence, uncomplicated; F17.210 Nicotine dependence, cigarettes, uncomplicated; F20.0 Paranoid schizophrenia; F19.282 Other psychoactive substance dependence with psychoactive substance-induced sleep disorder; B18.2 Chronic viral hepatitis C; D57.3 Sickle-cell trait; R79.89 Other specified abnormal findings of blood chemistry; R73.9 Hyperglycemia, unspecified; Z86.19 Personal history of other infectious and parasitic diseases
CPT/HCPCS: 36415; 80053; 82962; 85027; 86780; 87389; 87811; C9803-CS; Q0162; U0003; U0005

== ENCOUNTER 2022-04-26 10:58 | Inpatient (IN) | payer BC ==
[2022-04-26 12:03] VITALS: BMI 23.1
[2022-04-26] MEDS ORDERED: ACETAMINOPHEN 325 MG TABLET (FP) PO PRN ×2 (12:16)
[2022-04-26] MEDS ORDERED: BENZOCAINE/MENTHOL (CHLORASEPTIC ) LOZENGE MM PRN (12:16)
[2022-04-26] MEDS ORDERED: MAGNESIUM HYDROX 2400MG/30ML ORAL SUSPENSION 30 ML CUP PO PRN (12:16)
[2022-04-26] MEDS ORDERED: IBUPROFEN 400 MG TABLET (FP) PO PRN (12:16)
[2022-04-26] MEDS ORDERED: DICYCLOMINE HCL 10 MG CAPSULE PO PRN (12:16)
[2022-04-26] MEDS ORDERED: BISMUTH SUBSALICYLATE 262 MG/15 ML BTL PO PRN (12:16)
[2022-04-26] MEDS ORDERED: LOPERAMIDE HCL 2 MG CAPSULE PO PRN (12:16)
[2022-04-26] MEDS ORDERED: NICOTINE 10 MG CARTRIDGE (INHALER) IH PRN (12:16)
[2022-04-26] MEDS ORDERED: IBUPROFEN 600 MG TABLET (FP) PO PRN (12:16)
[2022-04-26] MEDS ORDERED: ONDANSETRON *ODT* 4 MG TABLET SL PRN (12:16)
[2022-04-26] MEDS ORDERED: chlordiazePOXIDE HCL 25 MG CAPSULE PO PRN (12:16)
[2022-04-26] MEDS ORDERED: MAGNESIUM CITRATE 300 ML BOTTLE PO PRN (12:16)
[2022-04-26] MEDS ORDERED: MAG HYDROX/AL HYDROX/SIMETH 30 ML UNIT-DOSE CUP PO PRN (12:16)
[2022-04-26] MEDS: NICOTINE 14 MG/24 HOURS TOPICAL PATCH TD SCH (13:48)
[2022-04-26] MEDS: hydrOXYzine PAMOATE 25 MG CAPSULE (FP) PO SCH ×3 (13:51→22:37)
[2022-04-26] MEDS: PRENATAL VITAMINS W/ FOLIC ACID TABLET (FP) PO SCH (13:51)
[2022-04-26] MEDS ORDERED: NICOTINE POLACRILEX 2 MG GUM BUC PRN (14:20)
[2022-04-26] MEDS: chlordiazePOXIDE HCL 25 MG CAPSULE PO SCH ×2 (18:37→22:37)
[2022-04-26] MEDS: METHOCARBAMOL 500 MG TABLET PO PRN (18:38)
[2022-04-26] MEDS: THIAMINE HCL 100 MG TABLET (FP) PO SCH (22:37)
[2022-04-26] MEDS: QUEtiapine FUMARATE 100 MG TABLET (FP) PO SCH (22:37)
[2022-04-26] MEDS: MELATONIN 5 MG TABLETS PO SCH (22:37)
[2022-04-27] MEDS: chlordiazePOXIDE HCL 25 MG CAPSULE PO SCH ×4 (06:30→23:10)
[2022-04-27] MEDS: hydrOXYzine PAMOATE 25 MG CAPSULE (FP) PO SCH ×5 (06:31→23:10)
[2022-04-27 08:39] LABS: ALBUMIN 3.5 g/dl (3.4-5.0); CALCIUM 8.9 mg/dL (8.5-10.1)
[2022-04-27 08:40] LABS: BLOOD UREA NITROGEN 18.7 mg/dL (7-18)
[2022-04-27 08:42] LABS: CREATININE 1.1 mg/dL (0.55-1.3)
[2022-04-27 08:44] LABS: BILIRUBIN,TOTAL 0.3 mg/dL (0.2-1); TOT PROT 6.8 g/dl (6.4-8.2)
[2022-04-27 09:01] LABS: HEMATOCRIT 40.7 % (35.4-49); HEMOGLOBIN 13.3 GM/dL (11.7-16.9); MCHC 32.8 g/dl (32.0-35.9); MEAN CELL VOLUME 88.6 fl (80-96); MEAN PLT VOLUME 8.8 fl (7.5-11.1); PLATELET COUNT 277 10^3/uL (134-434); RDW 14.1 % (11.9-15.9); WHITE BLOOD COUNT 5.2 K/mm3 (4.0-10.0)
[2022-04-27] MEDS: PRENATAL VITAMINS W/ FOLIC ACID TABLET (FP) PO SCH (10:25)
[2022-04-27] MEDS: NICOTINE 14 MG/24 HOURS TOPICAL PATCH TD SCH (10:26)
[2022-04-27 14:07] LABS: HIV INTERPRETATION NEGATIVE (NEGATIVE)
[2022-04-27] MEDS: MELATONIN 5 MG TABLETS PO SCH (23:10)
[2022-04-27] MEDS: QUEtiapine FUMARATE 100 MG TABLET (FP) PO SCH (23:10)
[2022-04-27] MEDS: THIAMINE HCL 100 MG TABLET (FP) PO SCH (23:10)
[2022-04-28] MEDS: chlordiazePOXIDE HCL 25 MG CAPSULE PO SCH ×4 (06:57→22:23)
[2022-04-28] MEDS: hydrOXYzine PAMOATE 25 MG CAPSULE (FP) PO SCH ×5 (06:57→22:25)
[2022-04-28] MEDS ORDERED: TRIMETHOBENZAMIDE HCL 200MG/2ML INJ IM PRN (09:49)
[2022-04-28] MEDS ORDERED: DIPHENOXYLATE 2.5/ATROPINE.025 1 COMBO TABLET PO ONE (09:49)
[2022-04-28] MEDS: METHOCARBAMOL 500 MG TABLET PO PRN (10:26)
[2022-04-28] MEDS: PRENATAL VITAMINS W/ FOLIC ACID TABLET (FP) PO SCH (10:26)
[2022-04-28] MEDS: NICOTINE 14 MG/24 HOURS TOPICAL PATCH TD SCH (10:27)
[2022-04-28] MEDS: FAMOTIDINE 20 MG TABLET PO SCH ×2 (10:28→22:25)
[2022-04-28] MEDS ORDERED: SUCRALFATE 1 GM TABLET (FP) PO ONE (14:00)
[2022-04-28] MEDS: THIAMINE HCL 100 MG TABLET (FP) PO SCH (22:24)
[2022-04-28] MEDS: MELATONIN 5 MG TABLETS PO SCH (22:24)
[2022-04-28] MEDS: QUEtiapine FUMARATE 100 MG TABLET (FP) PO SCH (22:25)
[2022-04-29] MEDS ORDERED: chlordiazePOXIDE HCL 10 MG CAPSULE PO PRN
[2022-04-29] MEDS: hydrOXYzine PAMOATE 25 MG CAPSULE (FP) PO SCH ×5 (06:29→22:28)
[2022-04-29] MEDS: chlordiazePOXIDE HCL 10 MG CAPSULE PO SCH ×4 (06:29→22:28)
[2022-04-29] MEDS: PRENATAL VITAMINS W/ FOLIC ACID TABLET (FP) PO SCH (10:19)
[2022-04-29] MEDS: NICOTINE 14 MG/24 HOURS TOPICAL PATCH TD SCH (10:19)
[2022-04-29] MEDS: FAMOTIDINE 20 MG TABLET PO SCH ×2 (10:20→22:28)
[2022-04-29] MEDS: METHOCARBAMOL 500 MG TABLET PO PRN (10:20)
[2022-04-29] MEDS ORDERED: chlordiazePOXIDE 5 MG CAPSULE ONE (21:09)
[2022-04-29] MEDS: QUEtiapine FUMARATE 100 MG TABLET (FP) PO SCH (22:28)
[2022-04-29] MEDS: THIAMINE HCL 100 MG TABLET (FP) PO SCH (22:28)
[2022-04-29] MEDS: MELATONIN 5 MG TABLETS PO SCH (22:28)
[2022-04-30] MEDS ORDERED: chlordiazePOXIDE HCL 10 MG CAPSULE PO SCH (05:00)
[2022-04-30] MEDS: hydrOXYzine PAMOATE 25 MG CAPSULE (FP) PO SCH ×3 (05:43→14:06)
[2022-04-30] MEDS: METHOCARBAMOL 500 MG TABLET PO PRN (05:43)
[2022-04-30] MEDS: NICOTINE 14 MG/24 HOURS TOPICAL PATCH TD SCH (10:25)
[2022-04-30] MEDS: FAMOTIDINE 20 MG TABLET PO SCH (10:25)
[2022-04-30] MEDS: PRENATAL VITAMINS W/ FOLIC ACID TABLET (FP) PO SCH (10:25)
[2022-04-30 13:44] VITALS: PULSE 66
[2022-04-30 18:24] VITALS: BP 133/90; TEMP 97.9
[2022-05-01] MEDS ORDERED: chlordiazePOXIDE HCL 10 MG CAPSULE PO ONE (05:00)
== END 2022-04-30 17:47 | disposition left against medical advice (07) | DRG 770 ==
LOC: YASAS 10:58 → Y6N 12:57
PROVIDERS: ADMIT Allergy & Immunology; ATTEND Surgery
PROC: HZ2ZZZZ Detoxification Services for Substance Abuse Treatment (ICD-10-PCS; principal; 2022-04-26)
DX: F10.230 Alcohol dependence with withdrawal, uncomplicated (principal); F14.20 Cocaine dependence, uncomplicated; F12.20 Cannabis dependence, uncomplicated; F17.210 Nicotine dependence, cigarettes, uncomplicated; F20.0 Paranoid schizophrenia; F19.282 Other psychoactive substance dependence with psychoactive substance-induced sleep disorder; F19.24 Other psychoactive substance dependence with psychoactive substance-induced mood disorder; D57.1 Sickle-cell disease without crisis; B18.2 Chronic viral hepatitis C; Z28.310 Unvaccinated for COVID-19
CPT/HCPCS: 36415; 80053; 85027; 86780; 87389; 87811; C9803-CS; Q0162; U0003; U0005

== ENCOUNTER 2023-07-29 11:36 | Inpatient (IN) | payer BC ==
[2023-07-29 12:02] VITALS: BMI 23.3
[2023-07-29] MEDS ORDERED: BENZONATATE 200 MG CAPSULE PO PRN (13:01)
[2023-07-29] MEDS ORDERED: ONDANSETRON *ODT* 4 MG TABLET SL PRN (13:01)
[2023-07-29] MEDS ORDERED: NALOXONE HCL 0.4 MG/ML VIAL IM PRN (13:01)
[2023-07-29] MEDS ORDERED: NALOXONE HCL (KLOXXADO) 8 MG SPRAY NS PRN (13:01)
[2023-07-29] MEDS ORDERED: ACETAMINOPHEN 325 MG TABLET (FP) PO PRN (13:01)
[2023-07-29] MEDS ORDERED: IBUPROFEN 400 MG TABLET (FP) PO PRN (13:01)
[2023-07-29] MEDS ORDERED: POLYETHYLENE GLYCOL (HEALTHYLAX) 3350 17 GM PACKET PO PRN (13:01)
[2023-07-29] MEDS ORDERED: BENZOCAINE/MENTHOL (CHLORASEPTIC ) LOZENGE MM PRN (13:01)
[2023-07-29] MEDS ORDERED: NICOTINE POLACRILEX 4 MG GUM BUC PRN (13:01)
[2023-07-29] MEDS ORDERED: LOPERAMIDE HCL 2 MG CAPSULE PO PRN (13:01)
[2023-07-29] MEDS ORDERED: BISMUTH SUBSALICYLATE 524 MG/30 ML PO PRN (13:01)
[2023-07-29] MEDS ORDERED: MAGNESIUM HYDROX 2400MG/30ML ORAL SUSPENSION 30 ML CUP PO PRN (13:01)
[2023-07-29] MEDS ORDERED: METHOCARBAMOL 500 MG TABLET PO PRN (13:01)
[2023-07-29] MEDS ORDERED: chlordiazePOXIDE HCL 25 MG CAPSULE PO PRN (13:01)
[2023-07-29] MEDS ORDERED: guaiFENesin 600 MG TABLET.ER (FP) PO PRN (13:01)
[2023-07-29] MEDS ORDERED: DICYCLOMINE HCL 10 MG CAPSULE PO PRN (13:01)
[2023-07-29] MEDS ORDERED: IBUPROFEN 600 MG TABLET (FP) PO PRN (13:01)
[2023-07-29] MEDS ORDERED: MAG HYDROX/AL HYDROX/SIMETH 30 ML UNIT-DOSE CUP PO PRN (13:01)
[2023-07-29] MEDS: chlordiazePOXIDE HCL 25 MG CAPSULE PO SCH ×2 (17:30→22:19)
[2023-07-29] MEDS: MELATONIN 5 MG TABLETS PO SCH (22:19)
[2023-07-29] MEDS: THIAMINE HCL 100 MG TABLET (FP) PO SCH (22:19)
[2023-07-30] MEDS: chlordiazePOXIDE HCL 25 MG CAPSULE PO SCH ×4 (05:56→22:31)
[2023-07-30 10:37] LABS: HEMATOCRIT 41.1 % (35.4-49); HEMOGLOBIN 13.4 GM/dL (11.7-16.9); MCH 28.8 pg (25.7-33.7); MCHC 32.6 g/dl (32.0-35.9); MEAN CELL VOLUME 88.3 fl (80-96); MEAN PLT VOLUME 8.5 fl (7.5-11.1); PLATELET COUNT 214 10^3/uL (134-434); RBC 4.65 M/mm3 (4.00-5.60); RDW 13.8 % (11.9-15.9); WHITE BLOOD COUNT 4.6 K/mm3 (4.0-10.0)
[2023-07-30] MEDS: PRENATAL VITAMINS W/ FOLIC ACID TABLET (FP) PO SCH (10:56)
[2023-07-30 11:22] LABS: POTASSIUM 4.5 mmol/L (3.5-5.1)
[2023-07-30 11:27] LABS: CALCIUM 8.5 mg/dL (8.5-10.1)
[2023-07-30 11:28] LABS: ALBUMIN 3.1 g/dl (3.4-5.0); BLOOD UREA NITROGEN 20.9 mg/dL (7-18)
[2023-07-30 11:32] LABS: BILIRUBIN,TOTAL 0.4 mg/dL (0.2-1); TOT PROT 6.4 g/dl (6.4-8.2)
[2023-07-30 12:24] LABS: HIV INTERPRETATION NEGATIVE (NEGATIVE)
[2023-07-30] MEDS: LACTULOSE 20 GM/30 ML UDC (FOR ORAL USE ONLY) PO SCH ×2 (14:35→22:30)
[2023-07-30] MEDS: THIAMINE HCL 100 MG TABLET (FP) PO SCH (22:30)
[2023-07-30] MEDS: MELATONIN 5 MG TABLETS PO SCH (22:30)
[2023-07-30] MEDS: QUEtiapine FUMARATE 100 MG TABLET (FP) PO SCH (22:31)
[2023-07-31] MEDS: LACTULOSE 20 GM/30 ML UDC (FOR ORAL USE ONLY) PO SCH ×3 (06:08→22:19)
[2023-07-31] MEDS: chlordiazePOXIDE HCL 25 MG CAPSULE PO SCH ×4 (06:08→22:20)
[2023-07-31] MEDS: PRENATAL VITAMINS W/ FOLIC ACID TABLET (FP) PO SCH (10:22)
[2023-07-31] MEDS: QUEtiapine FUMARATE 100 MG TABLET (FP) PO SCH (22:19)
[2023-07-31] MEDS: MELATONIN 5 MG TABLETS PO SCH (22:19)
[2023-07-31] MEDS: THIAMINE HCL 100 MG TABLET (FP) PO SCH (22:19)
[2023-08-01] MEDS ORDERED: chlordiazePOXIDE HCL 10 MG CAPSULE PO PRN
[2023-08-01] MEDS: chlordiazePOXIDE HCL 10 MG CAPSULE PO SCH ×4 (05:40→22:22)
[2023-08-01] MEDS: LACTULOSE 20 GM/30 ML UDC (FOR ORAL USE ONLY) PO SCH ×3 (05:41→22:22)
[2023-08-01] MEDS: PRENATAL VITAMINS W/ FOLIC ACID TABLET (FP) PO SCH (10:12)
[2023-08-01] MEDS: MELATONIN 5 MG TABLETS PO SCH (22:21)
[2023-08-01] MEDS: QUEtiapine FUMARATE 100 MG TABLET (FP) PO SCH (22:21)
[2023-08-01] MEDS: THIAMINE HCL 100 MG TABLET (FP) PO SCH (22:21)
[2023-08-02] MEDS: chlordiazePOXIDE HCL 10 MG CAPSULE PO SCH ×2 (06:00→17:45)
[2023-08-02] MEDS: LACTULOSE 20 GM/30 ML UDC (FOR ORAL USE ONLY) PO SCH ×2 (06:04→15:33)
[2023-08-02] MEDS: PRENATAL VITAMINS W/ FOLIC ACID TABLET (FP) PO SCH (10:16)
[2023-08-02] MEDS: MELATONIN 5 MG TABLETS PO SCH (21:52)
[2023-08-02] MEDS: QUEtiapine FUMARATE 100 MG TABLET (FP) PO SCH (21:52)
[2023-08-02] MEDS: THIAMINE HCL 100 MG TABLET (FP) PO SCH (21:52)
[2023-08-03] MEDS ORDERED: chlordiazePOXIDE HCL 10 MG CAPSULE PO ONE (05:00)
[2023-08-03 09:55] VITALS: BP 114/72; PULSE 73; RESP 16; TEMP 98
[2023-08-03] MEDS: PRENATAL VITAMINS W/ FOLIC ACID TABLET (FP) PO SCH (10:20)
== END 2023-08-03 11:02 | disposition home or self-care (01) | DRG 774 ==
LOC: YASAS 11:36 → Y3N 13:20
PROVIDERS: ADMIT Allergy & Immunology; ATTEND Surgery
PROC: HZ2ZZZZ Detoxification Services for Substance Abuse Treatment (ICD-10-PCS; principal; 2023-07-29)
DX: F10.230 Alcohol dependence with withdrawal, uncomplicated (principal); F14.20 Cocaine dependence, uncomplicated; F12.20 Cannabis dependence, uncomplicated; F17.210 Nicotine dependence, cigarettes, uncomplicated; F19.282 Other psychoactive substance dependence with psychoactive substance-induced sleep disorder; E72.20 Disorder of urea cycle metabolism, unspecified; F20.9 Schizophrenia, unspecified; G62.9 Polyneuropathy, unspecified; D57.3 Sickle-cell trait; H91.93 Unspecified hearing loss, bilateral; Z86.19 Personal history of other infectious and parasitic diseases; Z59.00 Homelessness unspecified; Z56.0 Unemployment, unspecified; Z28.310 Unvaccinated for COVID-19; Z28.9 Immunization not carried out for unspecified reason
CPT/HCPCS: 36415; 80053; 82140; 85027; 86780; 87389; 87635; 87811

== ENCOUNTER 2024-04-11 13:58 | Inpatient (IN) | payer BC ==
[2024-04-11 14:43] VITALS: BMI 21.7
[2024-04-11] MEDS ORDERED: LOPERAMIDE HCL 2 MG CAPSULE PO PRN (16:34)
[2024-04-11] MEDS ORDERED: BENZOCAINE/MENTHOL (CHLORASEPTIC ) LOZENGE MM PRN (16:34)
[2024-04-11] MEDS ORDERED: ACETAMINOPHEN 325 MG TABLET (FP) PO PRN (16:34)
[2024-04-11] MEDS ORDERED: IBUPROFEN 400 MG TABLET (FP) PO PRN (16:34)
[2024-04-11] MEDS ORDERED: NICOTINE POLACRILEX 2 MG LOZENGE BC PRN (16:34)
[2024-04-11] MEDS ORDERED: guaiFENesin 600 MG TABLET.ER (FP) PO PRN (16:34)
[2024-04-11] MEDS ORDERED: POLYETHYLENE GLYCOL (HEALTHYLAX) 3350 17 GM PACKET PO PRN (16:34)
[2024-04-11] MEDS ORDERED: BENZONATATE 200 MG CAPSULE PO PRN (16:34)
[2024-04-11] MEDS: MELATONIN 5 MG TABLETS PO SCH (21:23)
[2024-04-11] MEDS: THIAMINE 100 MG TABLET PO SCH (21:23)
[2024-04-12] MEDS: hydrOXYzine PAMOATE 25 MG CAPSULE (FP) PO PRN (06:30)
[2024-04-12] MEDS: PRENATAL VITAMINS W/ FOLIC ACID TABLET (FP) PO SCH (09:47)
[2024-04-12 11:46] LABS: URINE APPEARANCE CLEAR; URINE BILIRUBIN NEGATIVE (NEGATIVE); URINE COLOR YELLOW; URINE GLUCOSE (UA) NEGATIVE (NEGATIVE); URINE KETONE NEGATIVE (NEGATIVE); URINE LEUK ESTERASE NEGATIVE (NEGATIVE); URINE NITRITE NEGATIVE (NEGATIVE); URINE PROTEIN NEGATIVE (NEGATIVE)
[2024-04-12 11:49] LABS: MCH 28.4 pg (25.7-33.7); MCHC 32.6 g/dl (32.0-35.9); MEAN CELL VOLUME 86.9 fl (80-96); MEAN PLT VOLUME 8.2 fl (7.5-11.1); PLATELET COUNT 269 10^3/uL (134-434); RBC 4.95 M/mm3 (4.00-5.60); WHITE BLOOD COUNT 6.2 K/mm3 (4.0-10.0)
[2024-04-12 11:57] LABS: CHLORIDE 114 mmol/L (98-107); POTASSIUM 4.3 mmol/L (3.5-5.1); SODIUM 144 mmol/L (136-145)
[2024-04-12 12:00] LABS: CALCIUM 8.7 mg/dL (8.5-10.1)
[2024-04-12 12:01] LABS: ALBUMIN 3.2 g/dl (3.4-5.0); ANION GAP 4 mmol/L (4-13); BLOOD UREA NITROGEN 18.2 mg/dL (7-18); CO2 26 mmol/L (21-32); GLUCOSE,RANDOM 95 mg/dL (74-106)
[2024-04-12 12:04] LABS: CREATININE 0.9 mg/dL (0.55-1.3); SGOT/AST 25 U/L (15-37); SGPT/ALT 33 U/L (13-61)
[2024-04-12 12:06] LABS: BILIRUBIN,TOTAL 0.2 mg/dL (0.2-1); TOT PROT 6.6 g/dl (6.4-8.2)
[2024-04-12 12:07] LABS: ALK PHOS 85 U/L (45-117)
[2024-04-12 12:49] LABS: HIV INTERPRETATION NEGATIVE (NEGATIVE)
[2024-04-12] MEDS: QUEtiapine FUMARATE 100 MG TABLET (FP) PO SCH (21:45)
[2024-04-13] MEDS: ALBUTEROL SO4 HFA INHALER IH PRN (21:11)
[2024-04-14] MEDS: NICOTINE POLACRILEX 2 MG GUM BUC PRN (21:11)
[2024-04-15] MEDS: ACAMPROSATE CALCIUM 333 MG TABLET.DR PO SCH (21:18)
[2024-04-16] MEDS: IBUPROFEN 600 MG TABLET (FP) PO PRN (09:20)
[2024-04-16 12:04] LABS: INR 0.95 (0.83-1.09); PROTHROMBIN TIME (PATIENT) 10.9 SEC (9.7-13.0)
[2024-04-17] MEDS: MAGNESIUM OXIDE 400 MG TABLET (FP) PO SCH (10:10)
[2024-04-17] MEDS: NALTREXONE HCL 50 MG TABLET PO ONE (10:10)
[2024-04-18] MEDS: NALTREXONE HCL 50 MG TABLET PO SCH (10:22)
[2024-04-19] MEDS: CHOLECALCIFEROL (VIT D3) 400 UNIT (10 MCG) TABLET PO SCH (10:21)
[2024-04-24] MEDS: MAG HYDROX/AL HYDROX/SIMETH 30 ML UNIT-DOSE CUP PO PRN (22:10)
[2024-04-25 06:36] VITALS: TEMP 97.5
[2024-04-25] MEDS: MAGNESIUM HYDROX 2400MG/30ML ORAL SUSPENSION 30 ML CUP PO PRN (11:06)
[2024-04-26 06:54] VITALS: BP 111/73; PULSE 90; RESP 20
[2024-05-09] MEDS ORDERED: NALTREXONE MICROSPHERES (VIVITROL) 380 MG DISP.SYRIN IM ONE (14:00)
== END 2024-04-26 14:13 | disposition home or self-care (01) | DRG 772 ==
LOC: YASAS 13:58 → Y3E 17:36
PROVIDERS: ADMIT Allergy & Immunology; ATTEND Psychiatry & Neurology Pain Medicine
PROC: HZ42ZZZ Group Counseling for Substance Abuse Treatment, Cognitive-Behavioral (ICD-10-PCS; principal; 2024-04-11)
DX: F14.20 Cocaine dependence, uncomplicated (principal); F10.20 Alcohol dependence, uncomplicated; F12.20 Cannabis dependence, uncomplicated; F17.210 Nicotine dependence, cigarettes, uncomplicated; F19.282 Other psychoactive substance dependence with psychoactive substance-induced sleep disorder; F32.A Depression, unspecified; G62.9 Polyneuropathy, unspecified; J45.909 Unspecified asthma, uncomplicated; B18.2 Chronic viral hepatitis C; Z80.0 Family history of malignant neoplasm of digestive organs; Z86.2 Personal history of diseases of the blood and blood-forming organs and certain disorders involving the immune mechanism; Z86.59 Personal history of other mental and behavioral disorders; Z59.00 Homelessness unspecified
CPT/HCPCS: 36415; 80053; 80305; 80307; 81003; 82140; 82306; 83735; 85027; 85610; 86780; 86803; 87389; 87522; 87811; 93005; 93010